=== PATIENT | female | born 1970 ===

== ENCOUNTER 2017-06-09 08:31 | Emergency (ER) | payer MEDICAID ==
[2017-06-09 08:31] VITALS: BMI 32.0
[2017-06-09] MEDS ORDERED: Benzocaine/Menthol (Cepacol) Lozenge MT STA (08:49)
--- NOTE | 2017-06-09 08:50 | ED PDOC ---
Arrival/HPI - General Chief Complaint: ENT Problem Time Seen by Provider: 06/09/17 08:43 Historian: Patient - History of Present Illness Narrative History of Present Illness (Text): 06/09/17 08:44 A 46 year old female whose past medical history includes hypertension, , and hysterectomy, presents to the emergency department with 1 week duration throat, head, and ear pain. The patient states that she has a fever yesterday and that she has difficulty swallowing solids. She is able to drink plenty of fluids. She notes a voice change, rhinorrhea, and cough. She denies chills, abdominal pain, chest pain, shortness of breath, dyspnea on exertion, nausea, vomiting, diarrhea, dizziness, or any other complaints. Time/Duration: 1 week Symptom Onset: Gradual Symptom Course: Unchanged Activities at Onset: Rest, Light Context: Home Past Medical History - Provider Review Nursing Documentation Reviewed: Yes - Infectious Disease Hx of Infectious Diseases: None - Tetanus Immunization Tetanus Immunization: Unknown - Cardiac Hx Cardiac Disorders: Yes Hx Hypertension: Yes - Pulmonary Hx Pneumonia: Yes - Neurological Hx Neurological Disorder: No - HEENT Hx HEENT Disorder: No - Renal Hx Renal Disorder: No - Endocrine/Metabolic Hx Endocrine Disorders: No - Hematological/Oncological Hx Blood Disorders: No - Integumentary Hx Dermatological Disorder: No - Musculoskeletal/Rheumatological Hx Musculoskeletal Disorders: No Hx Falls: No - Gastrointestinal Hx Gastrointestinal Disorders: No - Genitourinary/Gynecological Hx Genitourinary Disorders: No - Psychiatric Hx Psychophysiologic Disorder: No Hx Depression: No Hx Substance Use: No - Surgical History Hx Section: Yes (x2) Hx Cholecystectomy: Yes Hx Hysterectomy: Yes Other/Comment: liposuction - Anesthesia Hx Anesthesia: Yes Hx Anesthesia Reactions: No Hx Malignant Hyperthermia: No - Suicidal Assessment Feels Threatened In Home Enviroment: No Family/Social History - Physician Review Nursing Documentation Reviewed: Yes Family/Social History: No Known Family HX Smoking Status: Never Smoked Hx Alcohol Use: No Hx Substance Use: No Hx Substance Use Treatment: No Allergies/Home Meds Allergies/Adverse Reactions: Allergies No Known Allergies Allergy (Verified 06/09/17 08:38) Review of Systems - Physician Review All systems were reviewed & negative as marked: Yes - Review of Systems Constitutional: Fevers. absent: Night Sweats ENT: Voice Changes, Sore Throat, Rhinorrhea, Other (Ear pain) Respiratory: Cough. absent: SOB Cardiovascular: absent: Chest Pain Gastrointestinal: absent: Abdominal Pain, Nausea, Vomiting Neurological: Headache. absent: Dizziness Physical Exam Vital Signs Reviewed: Yes Vital Signs Temp Pulse Resp BP Pulse Ox 06/09/17 08:31 98 F 78 18 136/90 99 Temperature: Afebrile Blood Pressure: Normal Pulse: Regular Respiratory Rate: Normal Appearance: Positive for: Well-Appearing, Non-Toxic, Comfortable Pain Distress: None Mental Status: Positive for: Alert and Oriented X 3 - Systems Exam Head: Present: Atraumatic, Normocephalic Pupils: Present: PERRL Extroacular Muscles: Present: EOMI Conjunctiva: Present: Normal Ears: Present: Normal, NORMAL TM, Normal Canal. No: Erythema, TM Bulging Mouth: Present: Moist Mucous Membranes. No: Drooling Pharnyx: Present: ERYTHEMA, TONSILS ENLARGED. No: EXUDATE, Uvular Deviation, Muffled/Hoarse Voice Neck: Present: Normal Range of Motion. No: Meningeal Signs Respiratory/Chest: Present: Clear to Auscultation, Good Air Exchange. No: Respiratory Distress, Accessory Muscle Use Cardiovascular: Present: Regular Rate and Rhythm, Normal S1, S2. No: Murmurs Abdomen: Present: Normal Bowel Sounds. No: Tenderness, Distention, Peritoneal Signs Back: Present: Normal Inspection Upper Extremity: Present: Normal Inspection. No: Cyanosis, Edema Lower Extremity: Present: Normal Inspection. No: Edema Neurological: Present: GCS=15, CN II-XII Intact, Speech Normal Skin: Present: Warm, Dry, Normal Color. No: Rashes Psychiatric: Present: Alert, Oriented x 3, Normal Insight, Normal Concentration Medical Decision Making ED Course and Treatment: 06/09/17 08:54 Impression: A 46 year old female with 1 week duration ear, throat, and head pain with associates rhinorrhea, cough, voice change, and fever. Plan: -- Cepacol Sore Throat -- Motrin -- Penicillin -- Reassess and disposition Prior Visits: Notes and results from previous visits were reviewed. On 09/24/2016 patient came in complaining of epigastric pain. Patient was discharged home. Progress Notes: Patient improved during visit. She states that every time she gets antibiotics she gets yeast infection. Her PMD gives her Diflucan just in case but PMD is on vacation. Rx Diflucan given in addition to PCN. - Medication Orders Current Medication Orders: Discontinued Medications Benzocaine/Menthol (Cepacol Sore Throat) 1 nicola MT STAT STA Stop: 06/09/17 08:50 Last Admin: 06/09/17 09:19 Dose: 1 nicola Ibuprofen (Motrin Tab) 600 mg PO STAT STA Stop: 06/09/17 08:52 Last Admin: 06/09/17 09:19 Dose: 600 mg Penicillin V Potassium (Penicillin Vk Tab) 500 mg PO STAT STA PRN Reason: Protocol Stop: 06/09/17 08:50 Last Admin: 06/09/17 09:19 Dose: 500 mg - Scribe Statement The provider has reviewed the documentation as recorded by the Lin Swanson Provider Scribe Attestation: All medical record entries made by the Scribe were at my direction and personally dictated by me. I have reviewed the chart and agree that the record accurately reflects my personal performance of the history, physical exam, medical decision making, and the department course for this patient. I have also personally directed, reviewed, and agree with the discharge instructions and disposition Disposition/Present on Arrival - Present on Arrival Any Indicators Present on Arrival: No History of DVT/PE: No History of Uncontrolled Diabetes: No Urinary Catheter: No History of Decub. Ulcer: No History Surgical Site Infection Following: None - Disposition Have Diagnosis and Disposition been Completed?: Yes Diagnosis: Pharyngitis Disposition: HOME/ ROUTINE Disposition Time: 09:20 Patient Plan: Discharge Condition: GOOD Discharge Instructions (ExitCare): Pharyngitis (ED) Print Language: SWEDISH Additional Instructions: Ms Dumont, thank you for letting us take care of you today. Your provider was Dr. Hollingsworth. You were treated for Pharyngitis. The emergency medical care you received today was directed at your acute symptoms. If you were prescribed any medication, please fill it and take as directed. It may take several days for your symptoms to resolve. Return to the Emergency Department if your symptoms worsen, do not improve, or if you have any other problems. Please contact your doctor or call one of the physicians/clinics you have been referred to that are listed on the Patient Visit Information form that is included in your discharge packet. Bring any paperwork you were given at discharge with you along with any medications you are taking to your follow up visit. Our treatment cannot replace ongoing medical care by a primary care provider (PCP) outside of the emergency department. Thank you for allowing the [facility] team to be part of your care today. If you had an X-Ray or CT scan: A Radiologist will review the ED reading if any change in treatment is needed we will contact you. If you had a blood, urine, or wound culture: It will take several days for the results, if any change in treatment is needed we will contact you. If you had an STI test: It will take 48 hours for the results. Please call after 1 week if you have not heard back. Prescriptions: Benzocaine/Menthol [Cepacol Sore Throat Lozenge] 1 each MM Q2 PRN #60 lozenge PRN Reason: Pain, Mild (1-3) Fluconazole [Diflucan] 150 mg PO ONCE #1 tab Ibuprofen [Motrin] 600 mg PO Q6 PRN #30 tab PRN Reason: Pain, Moderate (4-7) Penicillin VK [Penicillin VK Tab] 500 mg PO BID #20 tab Referrals: [facility], [Non-Staff] - Follow up with primary Forms: [employer] ([place]), WORK NOTE
[2017-06-09 09:01] VITALS: BP 136/90; PULSE 78; RESP 18; TEMP 98; O2SAT 99
== END 2017-06-09 09:31 | disposition home or self-care (01) ==
LOC: ED 08:31
DX: J02.9 Acute pharyngitis, unspecified (principal)

== ENCOUNTER 2018-02-11 04:30 | Inpatient (IN) | payer MEDICAID ==
[2018-02-11] MEDS ORDERED: Sodium Chloride 0.9% 1,000 ML IV STA ×2 (04:50→06:16)
[2018-02-11 05:26] LABS: BASO # 0.01 K/mm3 (0.0-2.0); GRAN # 23.39 (1.4-6.5); GRAN % 95.5 % (50.0-68.0); HEMOGLOBIN 13.9 g/dL (12.0-16.0); LYMPH # 0.6 (1.2-3.4); LYMPH % 2.3 % (22.0-35.0); MEAN CELL VOLUME 79.3 fl (80.0-105.0); MEAN CORPUSCULAR HGB CONC 35.3 g/dl (31.0-37.0); MEAN PLATELET VOLUME 11.3 fl (7.0-11.0); MONO # 0.6 (0.1-0.6); MONO % 2.2 % (1.0-6.0); PLATELET COUNT 205 10^3/uL (120.0-450.0); RBC 4.97 10^6/uL (3.5-6.1); RED CELL DISTRIBUTION WIDTH 14.7 % (11.5-14.5); WHITE BLOOD COUNT 24.5 10^3/ul (4.5-11.0)
[2018-02-11 05:30] LABS: ALB/GLOB RATIO 1.1 (1.1-1.8); ALT/SGPT 53 U/L (7-56); AST/SGOT 31 U/L (14-36); BLOOD UREA NITROGEN 6 mg/dL (7-21); CALCIUM 8.9 mg/dL (8.4-10.5); GFR AFRICAN-AMERICAN > 60; GFR NON-AFRICAN AMERICAN > 60
[2018-02-11 05:32] LABS: INR 1.26 (0.93-1.08); PARTIAL THROMBOPLASTIN TIME 26.6 Seconds (25.1-36.5); PROTHROMBIN TIME 14.4 SECONDS (9.4-12.5)
[2018-02-11 05:46] LABS: VENOUS BLOOD GAS BASE EXCESS 2.2 mmol/L (0.0-2.0); VENOUS BLOOD GAS PO2 173 mm/Hg (30-55); VENOUS BLOOD PH 7.49 (7.32-7.43)
[2018-02-11 05:47] LABS: TROPONIN I < 0.01 ng/mL
[2018-02-11] MEDS ORDERED: Piperacill/Tazo 4.5gm in NS 4.5 GM/100 ML BAG IVPB STA (06:16)
[2018-02-11 06:21] LABS: BAND 5 % (0-2); LYMPHOCYTE 2 % (22.0-35.0); MONOCYTE 3 % (1.0-6.0); NEUTROPHIL 90 % (50.0-70.0); PLATELET ESTIMATE NORMAL (NORMAL)
--- NOTE | 2018-02-11 06:24 | ED PDOC ---
Arrival/HPI - General Chief Complaint: Flu-like Symptoms Time Seen by Provider: 02/11/18 04:45 Historian: Patient, Spouse - History of Present Illness Narrative History of Present Illness (Text): 47yoF, HTN, with sore throat, cough, headache, generalized bodyaches, chest discomfort, abdomen pain, and otherwise no sob/abdomen pain/numbness/tingling/ loss of limb function. 02/11/18 06:18 02/11/18 07:06 Past Medical History - Provider Review Nursing Documentation Reviewed: Yes - Infectious Disease Hx of Infectious Diseases: None - Tetanus Immunization Tetanus Immunization: Unknown - Cardiac Hx Cardiac Disorders: Yes Hx Hypertension: Yes - Pulmonary Hx Pneumonia: Yes - Neurological Hx Neurological Disorder: No - HEENT Hx HEENT Disorder: No - Renal Hx Renal Disorder: No - Endocrine/Metabolic Hx Endocrine Disorders: No - Hematological/Oncological Hx Blood Disorders: No - Integumentary Hx Dermatological Disorder: No - Musculoskeletal/Rheumatological Hx Musculoskeletal Disorders: No Hx Falls: No - Gastrointestinal Hx Gastrointestinal Disorders: No - Genitourinary/Gynecological Hx Genitourinary Disorders: No - Psychiatric Hx Psychophysiologic Disorder: No Hx Depression: No Hx Substance Use: No - Surgical History Hx Section: Yes Hx Cholecystectomy: Yes Hx Hysterectomy: Yes - Anesthesia Hx Anesthesia: Yes Hx Anesthesia Reactions: No Hx Malignant Hyperthermia: No - Suicidal Assessment Feels Threatened In Home Enviroment: No Family/Social History - Physician Review Nursing Documentation Reviewed: Yes Family/Social History: No Known Family HX Smoking Status: Never Smoked Hx Alcohol Use: No Hx Substance Use: No Hx Substance Use Treatment: No Allergies/Home Meds Allergies/Adverse Reactions: Allergies No Known Allergies Allergy (Verified 02/11/18 04:42) Home Medications: Home Meds Medication Instructions Recorded Confirmed Losartan [Cozaar] 100 mg PO DAILY 02/11/18 02/11/18 Omeprazole Magnesium [Prilosec Otc] 20 mg PO DAILY 02/11/18 02/11/18 Unknown Medication Form Depression 02/11/18 Review of Systems - Review of Systems Constitutional: Fevers Eyes: Normal ENT: Normal Physical Exam Vital Signs Temp Pulse Resp BP Pulse Ox 02/11/18 07:36 98.4 F 87 16 126/76 98 02/11/18 04:44 100.1 F H 108 H 20 144/99 H 100 Medical Decision Making ED Course and Treatment: 47yoF, HTN, with sore throat, cough, headache, generalized bodyaches, chest discomfort, abdomen pain, and otherwise no sob/abdomen pain/numbness/tingling/ loss of limb function. low grade temp 100.1 HR 108 wbc 24 hb 13 trop less than 0.01 influenza neg lactic acid 2.1 code sepsis called strep positive ua neg IV Zosyn IV fluid hydration tylenol aspirin ct head no acute ct neck positive cervical adenopathy, but no mass or fluid collection. ct a/p fatty liver, colon is mildly thick walled from ascending to distal colon , possible mild colitis. IV flagyl d/w Dr. Mancia who will admit for sepsis related to pharyngitis and colitis. sepsis bundle Reassessment Condition: Re-examined, Improved - Lab Interpretations Lab Results: 02/11/18 05:05 02/11/18 05:05 Lab Results 02/11/18 08:00: pO2 189 H, VBG pH 7.37, VBG pCO2 41.0, VBG HCO3 23.7, VBG Total CO2 25.0, VBG O2 Sat (Calc) 100.7 H, VBG Base Excess -1.5 L, VBG Potassium 3.7, Sodium 137.0, Chloride 107.0, Glucose 126 H, Lactate 1.6, FiO2 21.0, Venous Blood Potassium 3.7 02/11/18 06:54: Grp A Beta Strep Ag Positive H 02/11/18 06:54: Urine Color Yellow, Urine Appearance Clear, Urine pH 6.0, Ur Specific [place] 1.010, Urine Protein Trace H, Urine Glucose (UA) Negative, Urine Ketones Negative, Urine Blood Negative, Urine Nitrate Negative, Urine Bilirubin Negative, Urine Urobilinogen 1.0 H, Ur Leukocyte Esterase Negative, Urine RBC 0 - 2, Urine WBC 0 - 2, Ur Epithelial Cells 4 - 5, Urine Bacteria Few 02/11/18 05:05: pO2 173 H, VBG pH 7.49 H, VBG pCO2 33.0 L, VBG HCO3 25.1, VBG Total CO2 26.1, VBG O2 Sat (Calc) 100.5 H, VBG Base Excess 2.2 H, VBG Potassium 3.6, Sodium 136.0, Chloride 105.0, Glucose 176 H, Lactate 2.1, FiO2 21.0, Venous Blood Potassium 3.6 02/11/18 05:05: Influenza Typ A,B (EIA) Negative for flu a/b 02/11/18 05:05: Sodium 142, Chloride 106, Potassium 3.6, Carbon Dioxide 23, Anion Gap 17, BUN 6 L, Creatinine 0.6 L, Est GFR ( Amer) > 60, Est GFR ( Non-Af Amer) > 60, Random Glucose 167 H, Calcium 8.9, Magnesium 1.9, Total Bilirubin 0.6, AST 31, ALT 53, Alkaline Phosphatase 81, Lactate Dehydrogenase 433, Total Creatine Kinase 59, Troponin I < 0.01, Total Protein 7.6, Albumin 4.0 , Globulin 3.6, Albumin/Globulin Ratio 1.1 02/11/18 05:05: PT 14.4 H, INR 1.26 H, APTT 26.6 02/11/18 05:05: WBC 24.5 H D, RBC 4.97, Hgb 13.9, Hct 39.4, MCV 79.3 L, MCH 28.0 , MCHC 35.3, RDW 14.7 H, Plt Count 205, MPV 11.3 H, Gran % 95.5 H, Lymph % (Auto ) 2.3 L, Boyle % (Auto) 2.2, Eos % (Auto) 0.0 L, Baso % (Auto) 0.0, Gran # 23.39 H, Lymph # (Auto) 0.6 L, Boyle # (Auto) 0.6, Eos # (Auto) 0.0, Baso # (Auto) 0.01 , Neutrophils % (Manual) 90 H, Band Neutrophils % 5 H, Lymphocytes % (Manual) 2 L, Monocytes % (Manual) 3, Platelet Evaluation Normal I have reviewed the lab results: Yes - RAD Interpretation Radiology Orders: 02/11/18 04:49 CHEST PORTABLE [RAD] Stat 02/11/18 06:28 HEAD W/O CONTRAST [CT] Stat 02/11/18 06:30 NECK SOFT TISSUE W/CONTRAST [CT] Stat 02/11/18 06:31 ABD & PELVIS IV CONTRAST ONLY [CT] Stat Insecticide Sprayer: ED Physician (cxr mild vascular markings), Radiologist (see mdm) - EKG Interpretation Interpreted by ED Physician: Yes (sinus tachycardia) Type: 12 lead EKG - Medication Orders Current Medication Orders: Metronidazole (Flagyl) 500 mg in 100 mls @ 100 mls/hr IVPB STAT STA PRN Reason: Protocol Stop: 02/11/18 10:07 Discontinued Medications Acetaminophen (Tylenol 325mg Tab) 975 mg PO STAT STA Stop: 02/11/18 04:51 Last Admin: 02/11/18 05:14 Dose: 975 mg Aspirin (Aspirin) 325 mg PO STAT STA Stop: 02/11/18 04:49 Last Admin: 02/11/18 05:14 Dose: 325 mg Sodium Chloride (Sodium Chloride 0.9%) 1,000 mls @ 999 mls/hr IV .Q1H1M STA Stop: 02/11/18 05:50 Last Admin: 02/11/18 05:12 Dose: 999 mls/hr eMAR Start Stop Document 02/11/18 05:12 CNR (Rec: 02/11/18 05:14 CNR [id number]) Intravenous Solution Start Date 02/11/18 Start Time 05:14 Sodium Chloride (Sodium Chloride 0.9%) 1,000 mls @ 999 mls/hr IV .Q1H1M STA Stop: 02/11/18 07:16 Last Admin: 02/11/18 06:45 Dose: 999 mls/hr eMAR Start Stop Document 02/11/18 06:45 CNR (Rec: 02/11/18 06:45 CNR [id number]) Intravenous Solution Start Date 02/11/18 Start Time 06:45 Piperacillin Sod/Tazobactam Sod (Zosyn 4.5 Gm In Ns 100ml) 4.5 gm in 100 mls @ 200 mls/hr IVPB STAT STA PRN Reason: Protocol Stop: 02/11/18 06:45 Last Admin: 02/11/18 06:44 Dose: 200 mls/hr eMAR Start Stop Document 02/11/18 06:44 CNR (Rec: 02/11/18 06:45 CNR [id number]) Intravenous Solution Start Date 02/11/18 Start Time 06:45 End Date 02/11/18 End time 07:15 Total Infusion Time 30 Disposition/Present on Arrival - Present on Arrival Any Indicators Present on Arrival: No History of DVT/PE: No History of Uncontrolled Diabetes: No Urinary Catheter: No History of Decub. Ulcer: No History Surgical Site Infection Following: None - Disposition Have Diagnosis and Disposition been Completed?: Yes Diagnosis: Pharyngitis, Sepsis, Colitis Disposition: HOSPITALIZED Disposition Time: 09:21 Patient Plan: Telemetry Condition: IMPROVED Discharge Instructions (ExitCare): Sepsis (ED) Referrals: Jesica Cox MD [Primary Care Provider] - Follow up with primary Forms: [employer] ([place]ian)
[2018-02-11] MEDS ORDERED: Iohexol 350 MG/100 ML VIAL ONE (06:46)
[2018-02-11 07:18] LABS: URINE BILIRUBIN NEGATIVE (NEGATIVE); URINE BLOOD NEGATIVE (NEGATIVE); URINE GLUCOSE (UA) NEGATIVE (NEGATIVE); URINE LEUKOCYTE ESTERASE NEGATIVE Leu/uL (NEGATIVE); URINE PROTEIN TRACE mg/dL (<30 mg/dL)
[2018-02-11 07:19] LABS: URINE APPEARANCE CLEAR (CLEAR); URINE COLOR YELLOW (YELLOW)
--- NOTE | 2018-02-11 07:35 | CT ---
EXAM: CT Head Without Intravenous Contrast CLINICAL HISTORY: 47 years old, female; Signs and symptoms; Fever; Additional info: 47yof, fever, headache, wbc 24 TECHNIQUE: Axial computed tomography images of the head/brain without intravenous contrast. All CT scans at this facility use one or more dose reduction techniques, viz.: automated exposure control; ma/kV adjustment per patient size (including targeted exams where dose is matched to indication; i.e. head); or iterative reconstruction technique. Coronal and sagittal reformatted images were created and reviewed. COMPARISON: No relevant prior studies available. FINDINGS: Brain: Unremarkable. No hemorrhage. No significant white matter disease. No edema. Ventricles: Unremarkable. No ventriculomegaly. Bones/joints: Unremarkable. No acute fracture. Soft tissues: Unremarkable. Sinuses: Unremarkable as visualized. No acute sinusitis. Mastoid air cells: Unremarkable as visualized. No mastoid effusion. IMPRESSION: No evidence of an acute intracranial abnormality.
[2018-02-11 07:42] LABS: URINE BACTERIA FEW (NEG); URINE RBC 0 - 2 /hpf (0-2); URINE WBC 0 - 2 /hpf (0-6)
--- NOTE | 2018-02-11 08:07 | CT ---
EXAM: CT Neck With Intravenous Contrast CLINICAL HISTORY: 47 years old, female; Signs and symptoms; Other: Fever; Additional info: 47yof, with fever, sore throat, wbc 24. TECHNIQUE: Axial computed tomography images of the neck with intravenous contrast. All CT scans at this facility use one or more dose reduction techniques, viz.: automated exposure control; ma/kV adjustment per patient size (including targeted exams where dose is matched to indication; i.e. head); or iterative reconstruction technique. Coronal and sagittal reformatted images were created and reviewed. CONTRAST: 100 mL of omnipaque 350 administered intravenously. COMPARISON: No relevant prior studies available. FINDINGS: Oropharynx: Unremarkable. No significant tonsillar enlargement. No peritonsillar abscess. Hypopharynx: Unremarkable. Larynx: Unremarkable. Normal epiglottis. Trachea: Unremarkable. Retropharyngeal space: Unremarkable. Submandibular/parotid glands: Unremarkable. Glands are normal in size. Thyroid: Unremarkable. No enlarged or calcified nodules. Bones/joints: No acute fracture. Soft tissues: Unremarkable. Vasculature: No acute findings. Lymph nodes: Multiple mildly prominent cervical lymph nodes bilaterally. Largest farm loan representative lymph node in the left retromandibular area measures 2 x 0.8 x 1.9 cm. Lung apices: Unremarkable as visualized. IMPRESSION: No acute findings. No mass or focal fluid collection. Mild nonspecific cervical adenopathy probably reactive.
[2018-02-11 08:21] LABS: VENOUS BLOOD GAS BASE EXCESS -1.5 mmol/L (0.0-2.0); VENOUS BLOOD GAS PO2 189 mm/Hg (30-55); VENOUS BLOOD PH 7.37 (7.32-7.43)
--- NOTE | 2018-02-11 08:29 | CT ---
EXAM: CT Abdomen and Pelvis With Intravenous Contrast CLINICAL HISTORY: 47 years old, female; Signs and symptoms; Other: Fever; Additional info: 47yof, with fever, abdomen pain/tenderness, wbc 24 TECHNIQUE: Axial computed tomography images of the abdomen and pelvis with intravenous contrast. All CT scans at this facility use one or more dose reduction techniques, viz.: automated exposure control; ma/kV adjustment per patient size (including targeted exams where dose is matched to indication; i.e. head); or iterative reconstruction technique. Coronal and sagittal reformatted images were created and reviewed. CONTRAST: 100 mL of omnipaque 350 administered intravenously. COMPARISON: CT - ABD PELVIS IV CONTRAST ONLY 2016-09-24 18:54 FINDINGS: Lung bases: There is minimal bibasilar atelectasis. ABDOMEN: Liver: There is a diffuse decrease in hepatic parenchymal density, consistent with fatty infiltration. Gallbladder and bile ducts: There has been a cholecystectomy. No ductal dilation. Pancreas: Unremarkable. No mass. No ductal dilation. Spleen: Unremarkable. No splenomegaly. Adrenals: Unremarkable. No mass. Kidneys and ureters: There are too small to characterize low density lesions in both kidneys measuring 2-4 mm. No hydronephrosis. Stomach and bowel: The colon appears mildly thick walled from the ascending to the distal descending. Possible mild acute colitis. No obstruction. PELVIS: Appendix: A normal appendix is identified. Bladder: Unremarkable. No mass. Reproductive: Unremarkable as visualized. ABDOMEN and PELVIS: Postsurgical changes suggests prior hernia repair. Intraperitoneal space: Unremarkable. No free air. No significant fluid collection. Bones/joints: No acute fracture. No dislocation. Soft tissues: Unremarkable. Vasculature: Unremarkable. No abdominal aortic aneurysm. Lymph nodes: Unremarkable. No enlarged lymph nodes. IMPRESSION: Possible mild acute colitis. Clinical correlation recommended. Cholecystectomy. Fatty liver. Too small to characterize bilateral renal lesions, probably cysts. No followup necessary.
[2018-02-11] MEDS ORDERED: metroNIDAZOLE IV 500 mg/100 ml 500 MG/100 ML BAG IVPB STA (09:08)
--- NOTE | 2018-02-11 09:17 | RAD ---
HISTORY: 47yoF with chest pain COMPARISON: 09/24/2016 FINDINGS: LUNGS: No active pulmonary disease. PLEURA: No significant pleural effusion identified, no pneumothorax apparent. CARDIOVASCULAR: Normal. OSSEOUS STRUCTURES: No significant abnormalities. VISUALIZED UPPER ABDOMEN: Normal. OTHER FINDINGS: None. IMPRESSION: No active disease.
--- NOTE | 2018-02-11 10:28 | CARD ---
APPROVED REPORT EKG Measurement Heart [id number] <Conclusion> Sinus tachycardia Nonspecific ST and T wave abnormality Abnormal ECG
[2018-02-11] MEDS: Piperacillin/Tazobact 3.375 gm 100 ML IVPB SCH ×2 (13:03→17:44)
[2018-02-11] MEDS: Sodium Chloride 0.9% 1,000 ML IV SCH (13:05)
[2018-02-11] MEDS: Benzocaine/Menthol (Cepacol) Lozenge MT SCH ×3 (13:05→21:42)
--- NOTE | 2018-02-11 13:26 | CP.PCM.HP ---
<Eros Mckeon - Last Filed: 02/11/18 12:19> History of Present Illness - History of Present Illness History of Present Illness: PGY1 Medicine H+P for Dr. Mancia Patient is a 47 year old man with a past medical history of HTN presenting to the emergency room with a chief complaint of whole body aches, subjective fevers , chills, sore throat, cough and abdominal pain. The symptoms started 2-3 days ago upon waking up. 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 Her cough is is non-productive. The abdominal pain is a vague and diffuse pain. The pain is worst in the epigastric region and does not radiate. She is currently nauseous and vomited 3 times yesterday. The emesis was described as non-bloody and yellowish. Her sore throat has made is painful to sallow but has not cause her any difficulty with breathing. She is hungry and asking for food. She had one episode of a loose bowel movement, denies bloody or black stools. She has only taken Tylenol for her fever and pain. Patient complains of overall fatigue and weakness. Denies chest pain, shortness of breath, vision changes, rashes, numbness or tingling. PMH: HTN PSH: Hysterectomy, x2, Cholecystectomy, hernia repair Family Hx: Cancer (mother) Social Hx: Denies tobacco, alcohol, illicit drug use, Allergies: NKDA PMD: Dr. Cox Present on Admission - Present on Admission Any Indicators Present on Admission: No Review of Systems - Review of Systems All systems: reviewed and no additional remarkable complaints except (as per HPI ) - Constitutional Constitutional: As Per HPI - EENT Eyes: As Per HPI Ears: As Per HPI Nose/Mouth/Throat: As Per HPI - Cardiovascular Cardiovascular: As Per HPI - Respiratory Respiratory: As Per HPI - Gastrointestinal Gastrointestinal: As Per HPI - Genitourinary Genitourinary: As Per HPI - Musculoskeletal Musculoskeletal: As Per HPI - Integumentary Integumentary: As Per HPI - Neurological Neurological: As Per HPI - Psychiatric Psychiatric: As Per HPI - Endocrine Endocrine: As Per HPI - Hematologic/Lymphatic Hematologic: As Per HPI Past Patient History - Infectious Disease Hx of Infectious Diseases: None - Tetanus Immunizations Tetanus Immunization: Unknown - Past Social History Smoking Status: Never Smoked - CARDIAC Hx Cardiac Disorders: Yes Hx Hypertension: Yes - PULMONARY Hx Pneumonia: Yes - NEUROLOGICAL Hx Neurological Disorder: No - HEENT Hx HEENT Problems: No - RENAL Hx Chronic Kidney Disease: No - ENDOCRINE/METABOLIC Hx Endocrine Disorders: No - HEMATOLOGICAL/ONCOLOGICAL Hx Blood Disorders: No - INTEGUMENTARY Hx Dermatological Problems: No - MUSCULOSKELETAL/RHEUMATOLOGICAL Hx Musculoskeletal Disorders: No Hx Falls: No - GASTROINTESTINAL Hx Gastrointestinal Disorders: No - GENITOURINARY/GYNECOLOGICAL Hx Genitourinary Disorders: No - PSYCHIATRIC Hx Psychophysiologic Disorder: No Hx Depression: No Hx Substance Use: No - SURGICAL HISTORY Hx Section: Yes Hx Cholecystectomy: Yes Hx Hysterectomy: Yes - ANESTHESIA Hx Anesthesia: Yes Hx Anesthesia Reactions: No Hx Malignant Hyperthermia: No Meds Allergies/Adverse Reactions: Allergies Allergy/AdvReac Type Severity Reaction Status Date / Time No Known Allergies Allergy Verified 02/11/18 12:36 Physical Exam - Constitutional Appears: Non-toxic, No Acute Distress - Head Exam Head Exam: ATRAUMATIC, NORMOCEPHALIC - Eye Exam Eye Exam: EOMI, Normal appearance. absent: Scleral icterus Pupil Exam: PERRL - ENT Exam ENT Exam: Mucous Membranes Moist. absent: Normal Oropharynx (Erythema - exudates on tosils b/l) - Neck Exam Neck exam: Positive for: Lymphadenopathy, Tenderness (preauricular/ submandibular lymph nodes). Negative for: Meningismus, Thyromegaly - Respiratory Exam Respiratory Exam: Clear to Auscultation Bilateral, NORMAL BREATHING PATTERN. absent: Accessory Muscle Use, Rales, Rhonchi, Wheezes, Respiratory Distress - Cardiovascular Exam Cardiovascular Exam: REGULAR RHYTHM, +S1, +S2. absent: JVD, Systolic Murmur - GI/Abdominal Exam GI & Abdominal Exam: Normal Bowel Sounds, Soft, Tenderness (diffuse (worst in epigastric region)) - Extremities Exam Extremities exam: Positive for: normal inspection, pedal pulses present. Negative for: calf tenderness, pedal edema, tenderness - Back Exam Back exam: CVA tenderness (L) (mild), CVA tenderness (R) (mild). absent: rash noted - Neurological Exam Neurological exam: Alert, CN II-XII Intact, Oriented x3 - Psychiatric Exam Psychiatric exam: Normal Affect, Normal Mood - Skin Skin Exam: Dry, Warm Results - Vital Signs Recent Vital Signs: Last Vital Signs Temp 98.4 F 02/11/18 07:36 Pulse 71 02/11/18 09:26 Resp 16 02/11/18 09:26 BP 110/72 02/11/18 09:26 Pulse Ox 17 L 02/11/18 11:00 - Labs Result Diagrams: 02/11/18 05:05 02/11/18 05:05 Assessment & Plan - Assessment and Plan (Free Text) Assessment: Patient is a 47 year old female with a past medical history of HTN presenting to the hospital with flu-like symptoms and was found to have sepsis, with strep throat and possible colitis. Plan: Sepsis - Bandemia Code sepsis called Infectious Disease consulted, Dr. Nicole - help appreciated WBC 24.5 upon admission - Neutrophils 90% - Bands 5 Flu - negative Strep - positive f/u HIV f/u CMV f/u [place] f/u blood culture f/u urine culture Started on Zosyn 3.375gm IVPB q6h ED Course: Aspirin 325mg, Tylenol 975mg, 2L bolus of NS, Zosyn 4.5gm IVPB and Flagyl 500mg IVPB Abdominal Pain GI consulted, Dr. Monson - help appreciated Per patient, - hx of 3 EGDs - possibly treated for H. Pylori in the past - hx of 2 Colonoscopies in past - both normal - Patient was seeing a Dr. Curry? in [place] - will attempt to find number and call for records. Abdominal/Pelvis CT - had two reads - VRAD: Possible mild acute colitis. Fatty Liver. Too small to characterize bilateral renal lesions, probably cysts. No follow up necessary. - Dr. Wilkerson: Unremarkable non contrast enhanced CT of the abdomen and pelvis Protonix 40mg PO daily Strep Throat Positive group A strep Cepacol Zosyn 3.375gm IVPB q6h Prophylactic Care Protonix 40mg PO daily Heparin 5,000units SC q8h Case Discussed with Dr. Blanche Mckeon PGY1 <Vanessa Mancia - Last Filed: 02/11/18 15:50> Results - Vital Signs Recent Vital Signs: Last Vital Signs Temp 98.7 F 02/11/18 15:13 Pulse 79 02/11/18 15:13 Resp 20 02/11/18 15:13 BP 142/85 02/11/18 15:13 Pulse Ox 100 02/11/18 15:13 - Labs Result Diagrams: 02/11/18 05:05 02/11/18 05:05 Labs: Laboratory Results - last 24 hr 02/11/18 13:32 Influenza Typ A,B (EIA) Negative for flu a/b Attending/Attestation - Attestation I have personally seen and examined this patient.: Yes I have fully participated in the care of the patient.: Yes I have reviewed all pertinent clinical information: Yes Notes (Text): 02/11/18 15:42 attending note; patient seen and examined with resident. Patient is a47 year old female with a past medical history of hypertension presenting to the emergency room with a chief complaint of whole body aches, subjective fevers, chills, sore throat, cough and abdominal pain. found to have strep pharyngitis/tonsillitis. Tonsills shows mild exudative lesions. patient also had nonspecific abdominal discomfort. CT abdomen and pelvis showed diffuse colitis. Stool studies ordered. Started on IV Zosyn. HIV, EBV, CMV ordered. leukocytosis/fever; sepsis protocol followed. Monitor WBC count. CT head is negative. CT neck showed no retropharyngeal abscess. colitis; GI evaluation requested. Patient had EGD in the past over 3 years ago. Treated for H. pylori. Patient also had colonoscopy previously over 3 years ago which was normal as per patient. Monitor closely. Upon discharge The patient will follow-up with PMD Dr. Cox.
--- NOTE | 2018-02-11 13:38 | PCM.SEPTIC ---
Sepsis Progress Note - Reassessment Type Date of Evaluation: 02/11/18 Time of Evaluation: 12:45 Reassessment Type: Non-invasive reassessment - Non Invasive Reassessment Were the most recent vital sign reviewed: Yes Vital Sign (Latest): Temp Pulse Resp BP Pulse Ox 98.4 F 71 16 110/72 17 L 02/11/18 07:36 02/11/18 09:26 02/11/18 09:26 02/11/18 09:26 02/11/18 11:00 Cardiovascular: Yes: Regular Rate, Rhythm, Chest Non Tender Respiratory: Yes: Normal Breath Sounds. No: Accessory Muscle Use, Rales, Rhonchi, Wheezing, Respiratory Distress Capillary Refill: Normal (Less than 2 sec) Pulses: Normal Radial, Normal Dorsalis Pedis, Normal Posterior Tibialis Skin: Warm, Dry
--- NOTE | 2018-02-11 14:02 | CP.PCM.CON ---
History of Present Illness - History of Present Illness History of Present Illness: 47 year old female with PMH of obesity with BMI 33, HTN, history of pneumonia, S /P cholecystectomy, S/P hysterectomy, came in [place] [facility] [place] complaining of fever, chills associated with sore throat, odynophagia, generalized body aches for the past 2-3 days. She was also complaining of vague abdominal discomfort, nausea and vomiting but without diarrhea. She works in a day care center. She denies headache or dizziness, no rhinorrhea, occasional dry cough, no chest pain, no SOB, no dysuria or hematuria. CT A/P was done which is showing mild acute colitis, and CT neck is showing reactive lymphadenopathy. Infectious diseases consult is requested to further evaluate and manage. Review of Systems - Review of Systems All systems: reviewed and no additional remarkable complaints except (as per HPI ) Past Patient History - Infectious Disease Hx of Infectious Diseases: None - Tetanus Immunizations Tetanus Immunization: Unknown - Past Social History Smoking Status: Never Smoked - CARDIAC Hx Cardiac Disorders: Yes Hx Hypertension: Yes - PULMONARY Hx Pneumonia: Yes - NEUROLOGICAL Hx Neurological Disorder: No - HEENT Hx HEENT Problems: No - RENAL Hx Chronic Kidney Disease: No - ENDOCRINE/METABOLIC Hx Endocrine Disorders: No - HEMATOLOGICAL/ONCOLOGICAL Hx Blood Disorders: No - INTEGUMENTARY Hx Dermatological Problems: No - MUSCULOSKELETAL/RHEUMATOLOGICAL Hx Musculoskeletal Disorders: No Hx Falls: No - GASTROINTESTINAL Hx Gastrointestinal Disorders: No - GENITOURINARY/GYNECOLOGICAL Hx Genitourinary Disorders: No - PSYCHIATRIC Hx Psychophysiologic Disorder: No Hx Depression: No Hx Substance Use: No - SURGICAL HISTORY Hx Section: Yes Hx Cholecystectomy: Yes Hx Hysterectomy: Yes - ANESTHESIA Hx Anesthesia: Yes Hx Anesthesia Reactions: No Hx Malignant Hyperthermia: No Meds Allergies/Adverse Reactions: Allergies Allergy/AdvReac Type Severity Reaction Status Date / Time No Known Allergies Allergy Verified 02/11/18 12:36 - Medications Medications: Current Medications Acetaminophen (Tylenol 325mg Tab) 650 mg PO Q6H PRN PRN Reason: Fever >100.4 F Benzocaine/Menthol (Cepacol Sore Throat) 1 nicola MT Q4H LUIS Heparin Sodium (Porcine) (Heparin) 5,000 units SC Q8 LUIS PRN Reason: Protocol Pantoprazole Sodium (Protonix Ec Tab) 40 mg PO 0600 LUIS Physical Exam - Constitutional Appears: Non-toxic - Head Exam Head Exam: NORMAL INSPECTION - ENT Exam Additional comments: enlarged and erythematous bilateral tonsils with exudates on the left tonsil; cervical LAD noted - Respiratory Exam Respiratory Exam: Decreased Breath Sounds. absent: Rales - Cardiovascular Exam Cardiovascular Exam: +S1, +S2 - GI/Abdominal Exam GI & Abdominal Exam: Soft. absent: Tenderness Results - Vital Signs Recent Vital Signs: Last Vital Signs Temp 98.4 F 02/11/18 07:36 Pulse 71 02/11/18 09:26 Resp 16 02/11/18 09:26 BP 110/72 02/11/18 09:26 Pulse Ox 17 L 02/11/18 11:00 - Labs Result Diagrams: 02/11/18 05:05 02/11/18 05:05 Assessment & Plan - Assessment and Plan (Free Text) Plan: Assessment Sepsis due to acute tonsillopharyngitis with acute colitis as well obesity with BMI 33 HTN history of pneumonia S/P cholecystectomy S/P hysterectomy Plan Started the patient on Zosyn and will follow up blood cx, stool for C. diff, stool cx, fecal leukocytes follow up HIV test, EBV and CMV tests will monitor clinically
[2018-02-11 16:55] VITALS: BMI 33.3
[2018-02-11] MEDS ORDERED: Pneumococcal 23-Valent Vaccine IM ONE (16:55)
[2018-02-12] MEDS: Piperacillin/Tazobact 3.375 gm 100 ML IVPB SCH ×5 (00:19→23:47)
[2018-02-12] MEDS: Benzocaine/Menthol (Cepacol) Lozenge MT SCH ×7 (00:45→23:47)
[2018-02-12] MEDS: Sodium Chloride 0.9% 1,000 ML IV SCH (03:07)
[2018-02-12] MEDS: Pantoprazole 40 mg EC Tab PO SCH (05:45)
--- NOTE | 2018-02-12 07:00 | CP.PCM.CON ---
<Jeb Garner - Last Filed: 02/12/18 12:26> History of Present Illness - History of Present Illness History of Present Illness: Subjective: CC: Abdominal Pain, N/V HPI: Patient is a 47 year old female with a past medical history of HTN and gatritis who was admitted for evaluation and treatment of whole body aches, fevers, chills, sore throat, cough and abdominal pain which began 3 days ago. Admits to sick contacts at work. Pain originates and remains localized in the epigastric region. Admits to associated nausea and nonbloody, nonbilious emesis x 3. Admits to pain when swallowing food and liquids. Admits to one nonbloody, loose bowel movement. States she underwent EGD and colonscopy earlier this year. Patient is unaware of results but admits to taking medications to treat a bacterial cause of her gastritis. Currently denies fever, chills, chest pain, SOB, diarrhea, constipation, and urinary symptoms. PMH: HTN PSH: Hysterectomy, x2, Cholecystectomy, hernia repair Family Hx: Cancer (mother) Social Hx: Denies tobacco, alcohol, illicit drug use, Allergies: NKDA PMD: Dr. Cox Physical Examination: - Constitutional Appears: Non-toxic, No Acute Distress - Head Exam Head Exam: ATRAUMATIC, NORMOCEPHALIC - Eye Exam Eye Exam: EOMI - ENT Exam ENT Exam: Mucous Membranes Moist, absent: Normal Oropharynx, Erythema - exudates on tonsils b/l - Neck Exam Neck exam: Positive for: Lymphadenopathy, Tenderness (preauricular/ submandibular lymph nodes). Negative for: Meningismus, Thyromegaly - Respiratory Exam Respiratory Exam: Clear to Auscultation Bilateral - Cardiovascular Exam Cardiovascular Exam: +S1, +S2 - GI/Abdominal Exam GI & Abdominal Exam: Normal Bowel Sounds, Soft, Tender in the epigastric region , absent: organomegaly, rebound tenderness, rigidity - Extremities Exam Extremities exam: Positive for: normal inspection - Neurological Exam Neurological exam: Alert, Oriented x3 - Psychiatric Exam Psychiatric exam: Normal Affect, Normal Mood - Skin Skin Exam: Dry, Warm Assessment and Plan: Patient is a 47 year old female with a past medical history of HTN and gatritis who was admitted for evaluation and treatment of whole body aches, fevers, chills, sore throat, cough and abdominal pain. Patient tested positive for strep pharyngitis. Abdominal/Pelvis CT had two separate reads. VRAD read indicated possible mild acute colitis, fatty liver. Dr. Wilkerson read indicated an unremarkable non contrast enhanced CT of the abdomen and pelvis. Patient treated thus far with IVF, zosyn, flagyl, PPI, and analgesics. Abdominal Pain, Colitis Sepsis 2/2 Strep pharyngitis - no acute GI intervention required - continue with heart healthy diet - continue with zosyn, ID following- appreciate recommendations - follow up with GI in outpatient setting. Thank you for the opportunity for participating in the care of this patient Patient case reviewed and plan approved by attending physician, Dr. Monson. Past Patient History - Infectious Disease Hx of Infectious Diseases: None - Tetanus Immunizations Tetanus Immunization: Unknown - Past Social History Smoking Status: Never Smoked - CARDIAC Hx Cardiac Disorders: Yes Hx Hypertension: Yes - PULMONARY Hx Respiratory Disorders: Yes Hx Pneumonia: Yes - NEUROLOGICAL Hx Neurological Disorder: Yes Hx Dizziness: Yes (SYNCOPE) - HEENT Hx HEENT Problems: Yes (PHARYNGITIS 02-11-18) - RENAL Hx Chronic Kidney Disease: No - ENDOCRINE/METABOLIC Hx Endocrine Disorders: Yes Hx Diabetes Mellitus Type 2: Yes - HEMATOLOGICAL/ONCOLOGICAL Hx Blood Disorders: No - INTEGUMENTARY Hx Dermatological Problems: No - MUSCULOSKELETAL/RHEUMATOLOGICAL Hx Musculoskeletal Disorders: No Hx Falls: No - GASTROINTESTINAL Hx Gastrointestinal Disorders: Yes (H/O LIPOSUCTION,FATTY LIVER) Other/Comment: COLITIS - GENITOURINARY/GYNECOLOGICAL Hx Genitourinary Disorders: Yes (BREAST REDUCTION,HYSTERECTOMY,C/S) - PSYCHIATRIC Hx Psychophysiologic Disorder: No Hx Depression: No Hx Substance Use: No - SURGICAL HISTORY Hx Surgeries: Yes (LIPOSUCTION,BREAST REDUCTION,C/S) Hx Cholecystectomy: Yes Hx Hysterectomy: Yes - ANESTHESIA Hx Anesthesia: Yes Hx Anesthesia Reactions: No Hx Malignant Hyperthermia: No Meds Allergies/Adverse Reactions: Allergies Allergy/AdvReac Type Severity Reaction Status Date / Time No Known Allergies Allergy Verified 02/11/18 12:36 - Medications Medications: Current Medications Acetaminophen (Tylenol 325mg Tab) 650 mg PO Q6H PRN PRN Reason: Fever >100.4 F Acetaminophen (Tylenol 325mg Tab) 650 mg PO Q6H PRN PRN Reason: Pain, Mild (1-3) Last Admin: 02/11/18 15:30 Dose: 650 mg Benzocaine/Menthol (Cepacol Sore Throat) 1 nicola MT Q4H [facility] Last Admin: 02/12/18 03:01 Dose: 1 nicola Diphenhydramine HCl (Benadryl) 25 mg PO HS PRN PRN Reason: Insomnia Last Admin: 02/11/18 22:33 Dose: 25 mg Heparin Sodium (Porcine) (Heparin) 5,000 units SC Q8 LUIS PRN Reason: Protocol Last Admin: 02/12/18 05:55 Dose: 5,000 units Piperacillin Sod/Tazobactam Sod (Zosyn 3.375 In Ns 100ml) 100 mls @ 200 mls/hr IVPB Q6 LUIS PRN Reason: Protocol Stop: 02/18/18 12:16 Last Admin: 02/12/18 05:44 Dose: 200 mls/hr Sodium Chloride (Sodium Chloride 0.9%) 1,000 mls @ 75 mls/hr IV .[id number] [facility] Last Admin: 02/12/18 03:07 Dose: 75 mls/hr Ibuprofen (Motrin Tab) 400 mg PO Q6H PRN PRN Reason: Pain, moderate (4-7) Last Admin: 02/12/18 03:00 Dose: 400 mg Pantoprazole Sodium (Protonix Ec Tab) 40 mg PO 0600 [facility] Last Admin: 02/12/18 05:45 Dose: 40 mg Results - Vital Signs Recent Vital Signs: Last Vital Signs Temp 98.5 F 02/11/18 22:20 Pulse 74 02/11/18 22:20 Resp 18 02/11/18 22:20 BP 90/57 L 02/11/18 22:20 Pulse Ox 98 02/11/18 22:20 - Labs Result Diagrams: 02/12/18 07:50 02/12/18 07:50 Labs: Laboratory Results - last 24 hr 02/11/18 13:32 Influenza Typ A,B (EIA) Negative for flu a/b <Jonah Monson - Last Filed: 02/12/18 20:40> Meds - Medications Medications: Current Medications Acetaminophen (Tylenol 325mg Tab) 650 mg PO Q6H PRN PRN Reason: Fever >100.4 F Acetaminophen (Tylenol 325mg Tab) 650 mg PO Q6H PRN PRN Reason: Pain, Mild (1-3) Last Admin: 02/11/18 15:30 Dose: 650 mg Benzocaine/Menthol (Cepacol Sore Throat) 1 nicola MT Q4H [facility] Last Admin: 02/12/18 20:02 Dose: 1 nicola Diphenhydramine HCl (Benadryl) 25 mg PO HS PRN PRN Reason: Insomnia Last Admin: 02/11/18 22:33 Dose: 25 mg Heparin Sodium (Porcine) (Heparin) 5,000 units SC Q8 LUIS PRN Reason: Protocol Last Admin: 02/12/18 14:00 Dose: Not Given Piperacillin Sod/Tazobactam Sod (Zosyn 3.375 In Ns 100ml) 100 mls @ 200 mls/hr IVPB Q6 LUIS PRN Reason: Protocol Stop: 02/18/18 12:16 Last Admin: 02/12/18 17:33 Dose: 200 mls/hr Sodium Chloride (Sodium Chloride 0.9%) 1,000 mls @ 75 mls/hr IV .[id number] [facility] Last Admin: 02/12/18 03:07 Dose: 75 mls/hr Ibuprofen (Motrin Tab) 400 mg PO Q6H PRN PRN Reason: Pain, moderate (4-7) Last Admin: 02/12/18 09:00 Dose: 400 mg Pantoprazole Sodium (Protonix Ec Tab) 40 mg PO 0600 [facility] Last Admin: 02/12/18 05:45 Dose: 40 mg Results - Vital Signs Recent Vital Signs: Last Vital Signs Temp 98.3 F 02/12/18 14:00 Pulse 81 02/12/18 14:00 Resp 18 02/12/18 14:00 BP 130/78 02/12/18 14:00 Pulse Ox 99 02/12/18 14:00 - Labs Result Diagrams: 02/12/18 07:50 02/12/18 07:50 Attending/Attestation - Attestation I have personally seen and examined this patient.: Yes I have fully participated in the care of the patient.: Yes I have reviewed all pertinent clinical information: Yes Notes (Text): 02/12/18 20:39 47 year old female with strep throat, also with epigastric pain. Had recent egd. Recommend PPI therapy. Recommend outpatient colonoscopy after acute issues resolve. Will sign off.
[2018-02-12 08:03] LABS: BASO # 0.02 K/mm3 (0.0-2.0); BASO % 0.1 % (0.0-3.0); EOS # 0.1 (0.0-0.7); EOS % 0.5 % (1.5-5.0); GRAN # 11.19 (1.4-6.5); GRAN % 79.6 % (50.0-68.0); HEMOGLOBIN 11.7 g/dL (12.0-16.0); LYMPH # 2.1 (1.2-3.4); LYMPH % 14.7 % (22.0-35.0); MEAN CELL VOLUME 79.7 fl (80.0-105.0); MEAN CORPUSCULAR HEMOGLOBIN 27.3 pg (25.0-35.0); MEAN CORPUSCULAR HGB CONC 34.2 g/dl (31.0-37.0); MEAN PLATELET VOLUME 11.1 fl (7.0-11.0); MONO # 0.7 (0.1-0.6); MONO % 5.1 % (1.0-6.0); RBC 4.29 10^6/uL (3.5-6.1); RED CELL DISTRIBUTION WIDTH 15.1 % (11.5-14.5); WHITE BLOOD COUNT 14.1 10^3/ul (4.5-11.0)
[2018-02-12 08:09] VITALS: O2SAT 99
[2018-02-12 08:24] LABS: ALB/GLOB RATIO 1.1 (1.1-1.8); ALT/SGPT 44 U/L (7-56); AST/SGOT 23 U/L (14-36); BLOOD UREA NITROGEN 8 mg/dL (7-21); CALCIUM 8.3 mg/dL (8.4-10.5); GFR AFRICAN-AMERICAN > 60; GFR NON-AFRICAN AMERICAN > 60
--- NOTE | 2018-02-12 12:28 | CP.PCM.PN ---
Subjective - Date & Time of Evaluation Date of Evaluation: 02/12/18 Time of Evaluation: 10:40 - Subjective Subjective: Patient still with sore throat but a little less, no more fevers, no diarrhea, no nausea. Objective - Vital Signs/Intake and Output Vital Signs (last 24 hours): Temp Pulse Resp BP Pulse Ox 98.5 F 74 18 90/57 L 98 02/11/18 22:20 02/11/18 22:20 02/11/18 22:20 02/11/18 22:20 02/11/18 22:20 Intake and Output: 02/12/18 02/12/18 06:59 18:59 Intake Total 600 Balance 600 - Medications Medications: Current Medications Acetaminophen (Tylenol 325mg Tab) 650 mg PO Q6H PRN PRN Reason: Fever >100.4 F Acetaminophen (Tylenol 325mg Tab) 650 mg PO Q6H PRN PRN Reason: Pain, Mild (1-3) Last Admin: 02/11/18 15:30 Dose: 650 mg Benzocaine/Menthol (Cepacol Sore Throat) 1 nicola MT Q4H [facility] Last Admin: 02/12/18 03:01 Dose: 1 nicola Diphenhydramine HCl (Benadryl) 25 mg PO HS PRN PRN Reason: Insomnia Last Admin: 02/11/18 22:33 Dose: 25 mg Heparin Sodium (Porcine) (Heparin) 5,000 units SC Q8 LUIS PRN Reason: Protocol Last Admin: 02/12/18 05:55 Dose: 5,000 units Piperacillin Sod/Tazobactam Sod (Zosyn 3.375 In Ns 100ml) 100 mls @ 200 mls/hr IVPB Q6 LUIS PRN Reason: Protocol Stop: 02/18/18 12:16 Last Admin: 02/12/18 05:44 Dose: 200 mls/hr Sodium Chloride (Sodium Chloride 0.9%) 1,000 mls @ 75 mls/hr IV .[id number] [facility] Last Admin: 02/12/18 03:07 Dose: 75 mls/hr Ibuprofen (Motrin Tab) 400 mg PO Q6H PRN PRN Reason: Pain, moderate (4-7) Last Admin: 02/12/18 03:00 Dose: 400 mg Pantoprazole Sodium (Protonix Ec Tab) 40 mg PO 0600 [facility] Last Admin: 02/12/18 05:45 Dose: 40 mg - Labs Labs: PT 14.4 SECONDS (9.4-12.5) H 02/11/18 05:05 INR 1.26 (0.93-1.08) H 02/11/18 05:05 APTT 26.6 Seconds (25.1-36.5) 02/11/18 05:05 - Constitutional Appears: Non-toxic - Head Exam Head Exam: NORMAL INSPECTION - ENT Exam ENT Exam: Mucous Membranes Moist Additional comments: bilateral swollen tonsils, with erythema and left side with exudates - Respiratory Exam Respiratory Exam: Decreased Breath Sounds - Cardiovascular Exam Cardiovascular Exam: +S1, +S2 - GI/Abdominal Exam GI & Abdominal Exam: Soft. absent: Tenderness Assessment and Plan - Assessment and Plan (Free Text) Plan: Assessment Sepsis due to acute tonsillopharyngitis with acute colitis as well obesity with BMI 33 HTN history of pneumonia S/P cholecystectomy S/P hysterectomy Plan continue Zosyn day 2; blood cx are negative; follow up stool studies follow up HIV test, EBV and CMV tests follow up GI evaluation (? colitis - ? IBD) will continue to monitor clinically
--- NOTE | 2018-02-12 13:40 | CP.PCM.PN ---
<Eros Mckeon - Last Filed: 02/12/18 13:34> Subjective - Date & Time of Evaluation Date of Evaluation: 02/12/18 Time of Evaluation: 07:35 - Subjective Subjective: PGY1 Medicine Note for Dr. Mancia Patient seen and examined at bedside this morning. No acute events overnight. Patient's throat is still extremely sore and causing her discomfort. It is not impeding her breathing or her ability to swallow. She was able to eat and drink yesterday but does complain of painful swallowing. Her abdominal pain has resolved and she is feeling well otherwise. Denies fevers, chills, nausea, vomiting, chest pain, shortness of breath, palpitations, abdominal pain, vision changes, rashes, numbness or tingling. Objective - Vital Signs/Intake and Output Vital Signs (last 24 hours): Temp Pulse Resp BP Pulse Ox 98.4 F 67 20 129/69 99 02/12/18 08:08 02/12/18 08:08 02/12/18 08:08 02/12/18 08:08 02/12/18 08:08 Intake and Output: 02/12/18 02/12/18 06:59 18:59 Intake Total 600 360 Balance 600 360 - Medications Medications: Current Medications Acetaminophen (Tylenol 325mg Tab) 650 mg PO Q6H PRN PRN Reason: Fever >100.4 F Acetaminophen (Tylenol 325mg Tab) 650 mg PO Q6H PRN PRN Reason: Pain, Mild (1-3) Last Admin: 02/11/18 15:30 Dose: 650 mg Benzocaine/Menthol (Cepacol Sore Throat) 1 nicola MT Q4H [facility]IS Last Admin: 02/12/18 12:19 Dose: 1 nicola Diphenhydramine HCl (Benadryl) 25 mg PO HS PRN PRN Reason: Insomnia Last Admin: 02/11/18 22:33 Dose: 25 mg Heparin Sodium (Porcine) (Heparin) 5,000 units SC Q8 LUIS PRN Reason: Protocol Last Admin: 02/12/18 05:55 Dose: 5,000 units Piperacillin Sod/Tazobactam Sod (Zosyn 3.375 In Ns 100ml) 100 mls @ 200 mls/hr IVPB Q6 LUIS PRN Reason: Protocol Stop: 02/18/18 12:16 Last Admin: 02/12/18 12:17 Dose: 200 mls/hr Sodium Chloride (Sodium Chloride 0.9%) 1,000 mls @ 75 mls/hr IV .[id number] [facility] Last Admin: 02/12/18 03:07 Dose: 75 mls/hr Ibuprofen (Motrin Tab) 400 mg PO Q6H PRN PRN Reason: Pain, moderate (4-7) Last Admin: 02/12/18 09:00 Dose: 400 mg Pantoprazole Sodium (Protonix Ec Tab) 40 mg PO 0600 [facility] Last Admin: 02/12/18 05:45 Dose: 40 mg - Labs Labs: 02/12/18 07:50 02/12/18 07:50 PT 14.4 SECONDS (9.4-12.5) H 02/11/18 05:05 INR 1.26 (0.93-1.08) H 02/11/18 05:05 APTT 26.6 Seconds (25.1-36.5) 02/11/18 05:05 - Constitutional Appears: Non-toxic, Other (appears uncomfortable) - Head Exam Head Exam: ATRAUMATIC, NORMOCEPHALIC - Eye Exam Eye Exam: EOMI, Normal appearance - ENT Exam ENT Exam: Mucous Membranes Moist. absent: Normal Oropharynx (Erythema - exudates on tosils b/l) - Neck Exam Neck Exam: Lymphadenopathy, Tenderness (preauricular/submandibular lymph nodes) - Respiratory Exam Respiratory Exam: Clear to Ausculation Bilateral, NORMAL BREATHING PATTERN. absent: Accessory Muscle Use, Rales, Rhonchi, Wheezes, Respiratory Distress - Cardiovascular Exam Cardiovascular Exam: REGULAR RHYTHM, +S1, +S2 - GI/Abdominal Exam GI & Abdominal Exam: Soft, Tenderness (mildly sore), Normal Bowel Sounds. absent: Distended, Firm, Guarding, Rigid - Extremities Exam Extremities Exam: absent: Calf Tenderness, Pedal Edema - Back Exam Back Exam: absent: CVA tenderness (L), CVA tenderness (R) - Neurological Exam Neurological Exam: Alert, Awake, CN II-XII Intact, Oriented x3 - Psychiatric Exam Psychiatric exam: Normal Affect, Normal Mood - Skin Skin Exam: Dry, Warm Assessment and Plan - Assessment and Plan (Free Text) Assessment: Patient is a 47 year old female with a past medical history of HTN presenting to the hospital with flu-like symptoms and was found to have sepsis, with strep throat and possible colitis. Plan: Sepsis - Bandemia Code sepsis called Infectious Disease consulted, Dr. Nicole - help appreciated - continue zosyn, f/u HIV, CMV, EBV WBC 24.5 upon admission - improved to 14.1 Flu - negative Strep - positive f/u HIV f/u CMV f/u Marcela-Mesa blood culture - no growth at 24 hours furine culture - negative Zosyn 3.375gm IVPB q6h (Started on 02/11) ED Course: Aspirin 325mg, Tylenol 975mg, 2L bolus of NS, Zosyn 4.5gm IVPB and Flagyl 500mg IVPB Abdominal Pain (resolved) GI consulted, Dr. Monson - help appreciated Per GI note, - no acute GI intervention, follow up with GI in outpatient setting. Per patient, - hx of 3 EGDs - possibly treated for H. Pylori in the past - hx of 2 Colonoscopies in past - both normal - Patient was seeing a Dr. Curry? in [place] - will attempt to find number and call for records. Abdominal/Pelvis CT - had two reads - VRAD: Possible mild acute colitis. Fatty Liver. Too small to characterize bilateral renal lesions, probably cysts. No follow up necessary. - Dr. Wilkerson: Unremarkable non contrast enhanced CT of the abdomen and pelvis Protonix 40mg PO daily Strep Throat Positive group A strep Cepacol Zosyn 3.375gm IVPB q6h Prophylactic Care Protonix 40mg PO daily Heparin 5,000units SC q8h Case Discussed with Dr. Blanche Voran PGY1 <Vanessa Mancia - Last Filed: 02/12/18 17:34> Objective - Vital Signs/Intake and Output Vital Signs (last 24 hours): Temp Pulse Resp BP Pulse Ox 98.3 F 81 18 130/78 99 02/12/18 14:00 02/12/18 14:00 02/12/18 14:00 02/12/18 14:00 02/12/18 14:00 - Medications Medications: Current Medications Acetaminophen (Tylenol 325mg Tab) 650 mg PO Q6H PRN PRN Reason: Fever >100.4 F Acetaminophen (Tylenol 325mg Tab) 650 mg PO Q6H PRN PRN Reason: Pain, Mild (1-3) Last Admin: 02/11/18 15:30 Dose: 650 mg Benzocaine/Menthol (Cepacol Sore Throat) 1 nicola MT Q4H [facility] Last Admin: 02/12/18 12:19 Dose: 1 nicola Diphenhydramine HCl (Benadryl) 25 mg PO HS PRN PRN Reason: Insomnia Last Admin: 02/11/18 22:33 Dose: 25 mg Heparin Sodium (Porcine) (Heparin) 5,000 units SC Q8 LUIS PRN Reason: Protocol Last Admin: 02/12/18 14:00 Dose: Not Given Piperacillin Sod/Tazobactam Sod (Zosyn 3.375 In Ns 100ml) 100 mls @ 200 mls/hr IVPB Q6 [facility]IS PRN Reason: Protocol Stop: 02/18/18 12:16 Last Admin: 02/12/18 12:17 Dose: 200 mls/hr Sodium Chloride (Sodium Chloride 0.9%) 1,000 mls @ 75 mls/hr IV .[id number] [facility] Last Admin: 02/12/18 03:07 Dose: 75 mls/hr Ibuprofen (Motrin Tab) 400 mg PO Q6H PRN PRN Reason: Pain, moderate (4-7) Last Admin: 02/12/18 09:00 Dose: 400 mg Pantoprazole Sodium (Protonix Ec Tab) 40 mg PO 0600 [facility] Last Admin: 02/12/18 05:45 Dose: 40 mg - Labs Labs: PT 14.4 SECONDS (9.4-12.5) H 02/11/18 05:05 INR 1.26 (0.93-1.08) H 02/11/18 05:05 APTT 26.6 Seconds (25.1-36.5) 02/11/18 05:05 Attending/Attestation - Attestation I have personally seen and examined this patient.: Yes I have fully participated in the care of the patient.: Yes I have reviewed all pertinent clinical information, including history, physical exam and plan: Yes Notes (Text): 02/12/18 17:32 attending note; patient seen and examined with resident. Patient is a 47 year old female with a past medical history of hypertension presenting to the emergency room with a chief complaint of whole body aches, subjective fevers, chills, sore throat, cough and abdominal pain. found to have strep pharyngitis/tonsillitis. Tonsills shows mild exudatives. still complaining of throat discomfort. patient also had nonspecific abdominal discomfort. CT abdomen and pelvis showed diffuse colitis. Started on IV Zosyn. HIV is negative. EBV, CMV is pending. leukocytosis/fever; sepsis protocol followed. WBC count is improving. CT head is negative. CT neck showed no retropharyngeal abscess. Case discussed with ID in detail. monitor clinically. colitis; GI evaluation appreciated. Needs outpatient follow up. Patient had EGD in the past over 3 years ago. Treated for H. pylori. Patient also had colonoscopy previously over 3 years ago which was normal as per patient. Upon discharge The patient will follow-up with PMD Dr. Cox. 02/12/18 17:33
[2018-02-12 22:07] VITALS: RESP 20
[2018-02-13] MEDS: Benzocaine/Menthol (Cepacol) Lozenge MT SCH ×5 (04:49→19:24)
[2018-02-13] MEDS: Piperacillin/Tazobact 3.375 gm 100 ML IVPB SCH ×3 (05:39→17:17)
[2018-02-13] MEDS: Pantoprazole 40 mg EC Tab PO SCH (05:40)
[2018-02-13] MEDS ORDERED: Albuterol-Ipratrop 3 mg / 0.5 (3 ml) UD IH STA (08:32)
[2018-02-13] MEDS: Sodium Chloride 0.9% 1,000 ML IV SCH (09:10)
[2018-02-13 09:24] LABS: BASO # 0.03 K/mm3 (0.0-2.0); BASO % 0.4 % (0.0-3.0); EOS # 0.2 (0.0-0.7); EOS % 2.3 % (1.5-5.0); GRAN # 4.39 (1.4-6.5); GRAN % 62.4 % (50.0-68.0); HEMOGLOBIN 12.5 g/dL (12.0-16.0); LYMPH % 28.4 % (22.0-35.0); MEAN CELL VOLUME 79.6 fl (80.0-105.0); MEAN CORPUSCULAR HEMOGLOBIN 27.1 pg (25.0-35.0); MEAN CORPUSCULAR HGB CONC 34.1 g/dl (31.0-37.0); MEAN PLATELET VOLUME 10.5 fl (7.0-11.0); MONO # 0.5 (0.1-0.6); MONO % 6.5 % (1.0-6.0); RBC 4.61 10^6/uL (3.5-6.1); RED CELL DISTRIBUTION WIDTH 14.5 % (11.5-14.5)
[2018-02-13 09:35] LABS: ALBUMIN 3.5 g/dL (3.0-4.8); ALT/SGPT 45 U/L (7-56); AST/SGOT 27 U/L (14-36); BLOOD UREA NITROGEN 6 mg/dL (7-21); CALCIUM 8.7 mg/dL (8.4-10.5); GFR AFRICAN-AMERICAN > 60; GFR NON-AFRICAN AMERICAN > 60
[2018-02-13] MEDS: Metoprolol Succinate 25 mg XL Tab PO SCH (12:20)
[2018-02-13] MEDS: Insulin Regular 1 UNITS/0.01 ML ML SC SCH ×3 (12:22→21:56)
[2018-02-13] MEDS ORDERED: Albuterol-Ipratrop 3 mg / 0.5 (3 ml) UD IH PRN (14:45)
--- NOTE | 2018-02-13 14:49 | CP.PCM.PN ---
<Eros Mckeon - Last Filed: 02/13/18 14:46> Subjective - Date & Time of Evaluation Date of Evaluation: 02/13/18 Time of Evaluation: 06:55 - Subjective Subjective: PGY1 Medicine Note for Dr. Mancia Patient seen and examined at bedside this morning. No acute events overnight. Patient is still complaining of severe sore throat. Today she reports that she has a history of asthma and that she is experiencing some SOB. She takes a Spirva inhaler at home as need. She was able to tolerate her diet but is still having painful swallowing. She had 5 episodes of watery diarrhea overnight. She states she feels overall weak. She has back pain but states she has been laying in bed since she has been in the hospital. Denies fevers, chills, nausea, vomiting, chest pain, palpitations, abdominal pain, headache, vision changes, rashes, numbness, tingling, lightheadedness or dizziness. Objective - Vital Signs/Intake and Output Vital Signs (last 24 hours): Temp Pulse Resp BP Pulse Ox 98.2 F 74 20 161/87 H 99 02/13/18 08:09 02/13/18 12:20 02/13/18 08:09 02/13/18 12:20 02/13/18 08:09 Intake and Output: 02/13/18 02/13/18 06:59 18:59 Intake Total 1340 860 Output Total 0 Balance 1340 860 - Medications Medications: Current Medications Acetaminophen (Tylenol 325mg Tab) 650 mg PO Q6H PRN PRN Reason: Fever >100.4 F Acetaminophen (Tylenol 325mg Tab) 650 mg PO Q6H PRN PRN Reason: Pain, Mild (1-3) Last Admin: 02/11/18 15:30 Dose: 650 mg Albuterol/Ipratropium (Duoneb 3 Mg/0.5 Mg (3 Ml) Ud) 3 ml IH [id number] PRN PRN Reason: Shortness of Breath Benzocaine/Menthol (Cepacol Sore Throat) 1 nicola MT Q4H [facility] Last Admin: 02/13/18 12:20 Dose: 1 nicola Diphenhydramine HCl (Benadryl) 25 mg PO HS PRN PRN Reason: Insomnia Last Admin: 02/11/18 22:33 Dose: 25 mg Heparin Sodium (Porcine) (Heparin) 5,000 units SC Q8 [facility] PRN Reason: Protocol Last Admin: 02/13/18 05:40 Dose: 5,000 units Piperacillin Sod/Tazobactam Sod (Zosyn 3.375 In Ns 100ml) 100 mls @ 200 mls/hr IVPB Q6 [facility] PRN Reason: Protocol Stop: 02/18/18 12:16 Last Admin: 02/13/18 12:22 Dose: 200 mls/hr Sodium Chloride (Sodium Chloride 0.9%) 1,000 mls @ 75 mls/hr IV .[id number] [facility] Last Admin: 02/13/18 09:10 Dose: 75 mls/hr Ibuprofen (Motrin Tab) 400 mg PO Q6H PRN PRN Reason: Pain, moderate (4-7) Last Admin: 02/12/18 20:45 Dose: 400 mg Insulin Human Regular (Humulin R) 0 units SC ACHS [facility]IS PRN Reason: Protocol Last Admin: 02/13/18 12:22 Dose: Not Given Metoprolol Succinate (Toprol Xl) 25 mg PO DAILY [facility] Last Admin: 02/13/18 12:20 Dose: 25 mg Pantoprazole Sodium (Protonix Ec Tab) 40 mg PO 0600 [facility] Last Admin: 02/13/18 05:40 Dose: 40 mg - Labs Labs: 02/13/18 09:00 02/13/18 09:00 PT 14.4 SECONDS (9.4-12.5) H 02/11/18 05:05 INR 1.26 (0.93-1.08) H 02/11/18 05:05 APTT 26.6 Seconds (25.1-36.5) 02/11/18 05:05 - Constitutional Appears: Non-toxic, No Acute Distress - Head Exam Head Exam: ATRAUMATIC, NORMOCEPHALIC - Eye Exam Eye Exam: EOMI, Normal appearance - ENT Exam ENT Exam: Mucous Membranes Moist. absent: Normal Oropharynx (improving erythema ) - Neck Exam Neck Exam: Lymphadenopathy (preauricular/submandibular lymph nodes), Tenderness (preauricular/submandibular lymph nodes) - Respiratory Exam Respiratory Exam: Clear to Ausculation Bilateral, NORMAL BREATHING PATTERN. absent: Accessory Muscle Use, Chest Wall Tenderness, Rales, Rhonchi, Wheezes, Respiratory Distress - Cardiovascular Exam Cardiovascular Exam: REGULAR RHYTHM, +S1, +S2 - GI/Abdominal Exam GI & Abdominal Exam: Soft, Normal Bowel Sounds. absent: Distended, Firm, Guarding, Rigid, Tenderness - Extremities Exam Extremities Exam: absent: Calf Tenderness, Pedal Edema - Back Exam Back Exam: NORMAL INSPECTION. absent: CVA tenderness (L), CVA tenderness (R), muscle spasm, paraspinal tenderness, vertebral tenderness - Neurological Exam Neurological Exam: Alert, Awake, CN II-XII Intact, Oriented x3 - Psychiatric Exam Psychiatric exam: Normal Affect, Normal Mood - Skin Skin Exam: Dry, Warm Assessment and Plan - Assessment and Plan (Free Text) Assessment: Patient is a 47 year old female with a past medical history of HTN presenting to the hospital with flu-like symptoms and was found to have sepsis, with strep throat and possible colitis. Plan: Sepsis - Bandemia Code sepsis called Infectious Disease consulted, Dr. Nicole - help appreciated WBC 24.5 upon admission - resolved 7.0 Flu - negative Strep - positive HIV - negative f/u CMV Marcela-Mesa * EBV Ag IgG Ab >750 (positive) * EBV Ag IgM Ab <36 (negative) blood culture - no growth at 24 hours furine culture - negative Zosyn 3.375gm IVPB q6h (Started on 02/11, last dose on 02/18) Tylenol 650mg PO q6h prn Ibuprofen 400mg PO q6h prn ED Course: Aspirin 325mg, Tylenol 975mg, 2L bolus of NS, Zosyn 4.5gm IVPB and Flagyl 500mg IVPB Strep Throat ENT consulted, Dr. Chaudhary - help appreciated Positive group A strep Cepacol Zosyn 3.375gm IVPB q6h Diarrhea C. Diff - f/u Stool Culture - f/u Fecal Leuk - f/u Abdominal Pain (resolved) GI consulted, Dr. Monson - help appreciated Per GI note, - no acute GI intervention, follow up with GI in outpatient setting. Per patient, - hx of 3 EGDs - possibly treated for H. Pylori in the past - hx of 2 Colonoscopies in past - both normal Abdominal/Pelvis CT - had two reads - [facility]AD: Possible mild acute colitis. Fatty Liver. Too small to characterize bilateral renal lesions, probably cysts. No follow up necessary. - Dr. Wilkerson: Unremarkable non contrast enhanced CT of the abdomen and pelvis Protonix 40mg PO daily Hx of Hypertension Started home Metoprolol Succ. 25mg PO daily Hyperglycemia Patient denies history of diabetes ISS - low dose Hx of Asthma Duoneb 3mL INH q4h prn for SOB Prophylactic Care Protonix 40mg PO daily Heparin 5,000units SC q8h Case Discussed with Dr. Blanche Mckeon PGY1 <Vanessa Mancia - Last Filed: 02/13/18 15:22> Objective - Vital Signs/Intake and Output Vital Signs (last 24 hours): Temp Pulse Resp BP Pulse Ox 98.2 F 74 20 161/87 H 99 02/13/18 08:09 02/13/18 12:20 02/13/18 08:09 02/13/18 12:20 02/13/18 08:09 Intake and Output: 02/13/18 02/13/18 06:59 18:59 Intake Total 1340 860 Output Total 0 Balance 1340 860 - Medications Medications: Current Medications Acetaminophen (Tylenol 325mg Tab) 650 mg PO Q6H PRN PRN Reason: Fever >100.4 F Acetaminophen (Tylenol 325mg Tab) 650 mg PO Q6H PRN PRN Reason: Pain, Mild (1-3) Last Admin: 02/11/18 15:30 Dose: 650 mg Albuterol/Ipratropium (Duoneb 3 Mg/0.5 Mg (3 Ml) Ud) 3 ml IH [id number] PRN PRN Reason: Shortness of Breath Benzocaine/Menthol (Cepacol Sore Throat) 1 nicola MT Q4H [facility] Last Admin: 02/13/18 12:20 Dose: 1 nicola Diphenhydramine HCl (Benadryl) 25 mg PO HS PRN PRN Reason: Insomnia Last Admin: 02/11/18 22:33 Dose: 25 mg Heparin Sodium (Porcine) (Heparin) 5,000 units SC Q8 [facility] PRN Reason: Protocol Last Admin: 02/13/18 15:01 Dose: Not Given Piperacillin Sod/Tazobactam Sod (Zosyn 3.375 In Ns 100ml) 100 mls @ 200 mls/hr IVPB Q6 [facility]IS PRN Reason: Protocol Stop: 02/18/18 12:16 Last Admin: 02/13/18 12:22 Dose: 200 mls/hr Sodium Chloride (Sodium Chloride 0.9%) 1,000 mls @ 75 mls/hr IV .[id number] [facility] Last Admin: 02/13/18 09:10 Dose: 75 mls/hr Ibuprofen (Motrin Tab) 400 mg PO Q6H PRN PRN Reason: Pain, moderate (4-7) Last Admin: 02/12/18 20:45 Dose: 400 mg Insulin Human Regular (Humulin R) 0 units SC ACHS [facility] PRN Reason: Protocol Last Admin: 02/13/18 12:22 Dose: Not Given Metoprolol Succinate (Toprol Xl) 25 mg PO DAILY [facility] Last Admin: 02/13/18 12:20 Dose: 25 mg Pantoprazole Sodium (Protonix Ec Tab) 40 mg PO 0600 [facility] Last Admin: 02/13/18 05:40 Dose: 40 mg - Labs Labs: 02/13/18 09:00 02/13/18 09:00 PT 14.4 SECONDS (9.4-12.5) H 02/11/18 05:05 INR 1.26 (0.93-1.08) H 02/11/18 05:05 APTT 26.6 Seconds (25.1-36.5) 02/11/18 05:05 Attending/Attestation - Attestation I have personally seen and examined this patient.: Yes I have fully participated in the care of the patient.: Yes I have reviewed all pertinent clinical information, including history, physical exam and plan: Yes Notes (Text): 02/13/18 15:17 attending note; patient seen and examined with resident. Patient is a 47 year old female with a past medical history of hypertension presenting to the emergency room with a chief complaint of body aches, subjective fevers, chills, sore throat, cough and abdominal pain. found to have strep pharyngitis/tonsillitis. Tonsills shows mild exudatives. still complaining of throat discomfort. we will get ENT evaluation. Marcela-Mesa virus IgG is positive. patient also had nonspecific abdominal discomfort. CT abdomen and pelvis showed diffuse colitis. Started on IV Zosyn. HIV is negative. history of asthma; continue DuoNeb when necessary. leukocytosis/fever; sepsis protocol followed. WBC count is normal. CT head is negative. CT neck showed no retropharyngeal abscess. Case discussed with ID in detail. monitor clinically. colitis; GI evaluation appreciated. Needs outpatient follow up. hypertension; started on metoprolol on Cozaar. Upon discharge The patient will follow-up with PMD Dr. Cox.
[2018-02-14] MEDS: Piperacillin/Tazobact 3.375 gm 100 ML IVPB SCH ×2 (00:34→06:03)
[2018-02-14] MEDS: Benzocaine/Menthol (Cepacol) Lozenge MT SCH ×4 (00:34→12:35)
--- NOTE | 2018-02-14 02:02 | PN ---
DATE: 02/13/2018 SUBJECTIVE: Patient seen in bed, seen earlier this morning in room 570, bed 2. PHYSICAL EXAMINATION VITAL SIGNS: Temperature of 98, blood pressure is 140/90, respiratory rate of 20. HEENT: Unremarkable. NECK: Supple. LUNGS: Have decreased breath sounds. HEART: Normal S1, S2. ABDOMEN: Soft, nontender. LABORATORY DATA: Reveals white count of 7000, hemoglobin of 12, platelets of 201. Chemistries reveals BUN of 6, creatinine of 0.6. Urinalysis was noted. Group A strep antigen is positive. Throat cultures have no growth. Urine cultures have no growth. MEDICATIONS: The patient is on Zosyn. Soft tissue CAT scan of the neck here shown no acute findings. No mass or fluid collection. Patient's HIV is negative. ASSESSMENT AND PLAN: This is a 47-year-old female seen early this morning in room 570, bed 2 with sepsis, with acute tonsillopharyngitis secondary to Streptococcus, also with obesity with BMI of 33, hypertension, pneumonia, cholecystectomy, hysterectomy, day #3 of Zosyn. Group A beta Streptococcus antigen is positive. Will follow with you. note is appreciated. Dion Larson MD
[2018-02-14] MEDS: Pantoprazole 40 mg EC Tab PO SCH (06:02)
[2018-02-14] MEDS: Insulin Regular 1 UNITS/0.01 ML ML SC SCH ×2 (08:05→11:40)
[2018-02-14 08:25] LABS: BASO # 0.03 K/mm3 (0.0-2.0); BASO % 0.4 % (0.0-3.0); EOS # 0.2 (0.0-0.7); EOS % 2.8 % (1.5-5.0); GRAN # 5.34 (1.4-6.5); GRAN % 64.6 % (50.0-68.0); HEMOGLOBIN 12.6 g/dL (12.0-16.0); LYMPH # 2.3 (1.2-3.4); LYMPH % 27.7 % (22.0-35.0); MEAN CELL VOLUME 78.3 fl (80.0-105.0); MEAN CORPUSCULAR HEMOGLOBIN 26.5 pg (25.0-35.0); MEAN CORPUSCULAR HGB CONC 33.9 g/dl (31.0-37.0); MEAN PLATELET VOLUME 10.7 fl (7.0-11.0); MONO # 0.4 (0.1-0.6); MONO % 4.5 % (1.0-6.0); RBC 4.75 10^6/uL (3.5-6.1); RED CELL DISTRIBUTION WIDTH 14.3 % (11.5-14.5); WHITE BLOOD COUNT 8.3 10^3/ul (4.5-11.0)
[2018-02-14 08:29] VITALS: TEMP 98.2
[2018-02-14 08:42] LABS: ALBUMIN 3.8 g/dL (3.0-4.8); ALT/SGPT 61 U/L (7-56); AST/SGOT 41 U/L (14-36); BLOOD UREA NITROGEN 6 mg/dL (7-21); CALCIUM 8.8 mg/dL (8.4-10.5); GFR AFRICAN-AMERICAN > 60; GFR NON-AFRICAN AMERICAN > 60
--- NOTE | 2018-02-14 08:57 | CON ---
DATE: 02/13/2018 HISTORY OF PRESENT ILLNESS: The patient was evaluated regarding chronic sore throat for approximately 5-7 day time span. She was admitted to [facility] and placed on IV antibiotics with an extremely sore throat and some elevated white blood cell counts and low grade fevers. The patient during her 3-day hospital courses, fail to respond appropriately to the IV antibiotics as the throat pain persists. There was previous positive strep culture and the patient has been recently started on the sliding scale for hyperglycemia. PAST MEDICAL HISTORY: Positive for hypertension. CT scan of the neck revealed no evidence of parapharyngeal deep neck space abscesses. ALLERGIES: THERE WERE NO KNOWN DRUG ALLERGIES. PHYSICAL EXAMINATION: NECK: The tonsils noted to be 3+ bilaterally hypertrophy cryptic in nature. Some exudates noted. There was mild adenopathy noted on neck examination. HEENT: The tympanic membrane and external auditory canals were normal bilaterally. Intranasal examination was unremarkable. IMPRESSION: The patient's diagnosis is an acute tonsillitis, rule out mono, possible coexisting strep. PLAN: Would be to obtain Monospot and consider IV steroids, Decadron 10 mg every 8 hours, if not medically contraindicated based on her hyperglycemia. This will probably expedite the resolution of her symptoms more so than the IV antibiotics. Should the Monospot be positive, would consider sending home on outpatient prednisone without antibiotic therapy. If you have further questions, feel free to contact my office. Gustavo Ferrara DO
[2018-02-14] MEDS ORDERED: Potassium Chloride 20 mEq ER Tab PO ONE ×2 (09:11→12:16)
[2018-02-14] MEDS: Metoprolol Succinate 25 mg XL Tab PO SCH (10:10)
[2018-02-14 10:16] VITALS: BP 154/91; PULSE 60
--- NOTE | 2018-02-14 13:33 | CP.PCM.DIS ---
<Eros Mckeon - Last Filed: 02/14/18 18:39> Provider - Provider Date of Admission: 02/12/18 14:40 Attending physician: Vanessa Mancia MD Primary care physician: Jesica Cox MD Consults: ID - Dr. Nicole ENT - Dr. Chaudhary Time Spent in preparation of Discharge (in minutes): 35 Diagnosis - Discharge Diagnosis (1) Colitis Status: Resolved (2) Pharyngitis Status: Resolved (3) Sepsis Status: Resolved Hospital Course - Lab Results Lab Results: Most Recent Lab Values WBC 8.3 10^3/ul (4.5-11.0) 02/14/18 08:00 RBC 4.75 10^6/uL (3.5-6.1) 02/14/18 08:00 Hgb 12.6 g/dL (12.0-16.0) 02/14/18 08:00 Hct 37.2 % (36.0-48.0) 02/14/18 08:00 MCV 78.3 fl (80.0-105.0) L 02/14/18 08:00 MCH 26.5 pg (25.0-35.0) 02/14/18 08:00 MCHC 33.9 g/dl (31.0-37.0) 02/14/18 08:00 RDW 14.3 % (11.5-14.5) 02/14/18 08:00 Plt Count 238 10^3/uL (120.0-450.0) 02/14/18 08:00 MPV 10.7 fl (7.0-11.0) 02/14/18 08:00 Gran % 64.6 % (50.0-68.0) 02/14/18 08:00 Lymph % (Auto) 27.7 % (22.0-35.0) 02/14/18 08:00 Fountain % (Auto) 4.5 % (1.0-6.0) 02/14/18 08:00 Eos % (Auto) 2.8 % (1.5-5.0) 02/14/18 08:00 Baso % (Auto) 0.4 % (0.0-3.0) 02/14/18 08:00 Gran # 5.34 (1.4-6.5) 02/14/18 08:00 Lymph # (Auto) 2.3 (1.2-3.4) 02/14/18 08:00 F[place] # (Auto) 0.4 (0.1-0.6) 02/14/18 08:00 Eos # (Auto) 0.2 (0.0-0.7) 02/14/18 08:00 Baso # (Auto) 0.03 K/mm3 (0.0-2.0) 02/14/18 08:00 Neutrophils % (Manual) 90 % (50.0-70.0) H 02/11/18 05:05 Band Neutrophils % 5 % (0-2) H 02/11/18 05:05 Lymphocytes % (Manual) 2 % (22.0-35.0) L 02/11/18 05:05 Monocytes % (Manual) 3 % (1.0-6.0) 02/11/18 05:05 Platelet Evaluation Normal (NORMAL) 02/11/18 05:05 PT 14.4 SECONDS (9.4-12.5) H 02/11/18 05:05 INR 1.26 (0.93-1.08) H 02/11/18 05:05 APTT 26.6 Seconds (25.1-36.5) 02/11/18 05:05 pO2 189 mm/Hg (30-55) H 02/11/18 08:00 VBG pH 7.37 (7.32-7.43) 02/11/18 08:00 VBG pCO2 41.0 (40-60) 02/11/18 08:00 VBG HCO3 23.7 mmol/l (21-28) 02/11/18 08:00 VBG Total CO2 25.0 mmol.L (22-28) 02/11/18 08:00 VBG O2 Sat (Calc) 100.7 % (40-65) H 02/11/18 08:00 VBG Base Excess -1.5 mmol/L (0.0-2.0) L 02/11/18 08:00 VBG Potassium 3.7 mmol/L (3.6-5.2) 02/11/18 08:00 Sodium 137.0 mmol/L (132-148) 02/11/18 08:00 Chloride 107.0 mmol/L (98-107) 02/11/18 08:00 Glucose 126 mg/dl (65-105) H 02/11/18 08:00 Lactate 1.6 mmol/L (0.7-2.1) 02/11/18 08:00 FiO2 21.0 % 02/11/18 08:00 Sodium 147 mmol/L (132-148) 02/14/18 08:00 Potassium 3.4 mmol/L (3.6-5.0) L 02/14/18 08:00 Chloride 110 mmol/L (98-107) H 02/14/18 08:00 Carbon Dioxide 26 mmol/L (21-33) 02/14/18 08:00 Anion Gap 14 (10-20) 02/14/18 08:00 BUN 6 mg/dL (7-21) L 02/14/18 08:00 Creatinine 0.7 mg/dl (0.7-1.2) 02/14/18 08:00 Est GFR ( Amer) > 60 02/14/18 08:00 Est GFR (Non-Af Amer) > 60 02/14/18 08:00 POC Glucose (mg/dL) 88 mg/dL (65-110) 02/14/18 07:02 Random Glucose 100 mg/dL (70-110) 02/14/18 08:00 Calcium 8.8 mg/dL (8.4-10.5) 02/14/18 08:00 Phosphorus 4.0 mg/dL (2.5-4.5) 02/14/18 08:00 Magnesium 2.0 mg/dL (1.7-2.2) 02/14/18 08:00 Total Bilirubin 0.8 mg/dL (0.2-1.3) 02/14/18 08:00 AST 41 U/L (14-36) H D 02/14/18 08:00 ALT 61 U/L (7-56) H 02/14/18 08:00 Alkaline Phosphatase 67 U/L (38-126) 02/14/18 08:00 Lactate Dehydrogenase 433 U/L (333-699) 02/11/18 05:05 Total Creatine Kinase 59 U/L (35-230) 02/11/18 05:05 Troponin I < 0.01 ng/mL 02/11/18 05:05 Total Protein 7.4 g/dL (5.8-8.3) 02/14/18 08:00 Albumin 3.8 g/dL (3.0-4.8) 02/14/18 08:00 Globulin 3.7 gm/dL 02/14/18 08:00 Albumin/Globulin Ratio 1.0 (1.1-1.8) L 02/14/18 08:00 Venous Blood Potassium 3.7 mmol/L (3.6-5.2) 02/11/18 08:00 Urine Color Yellow (YELLOW) 02/11/18 06:54 Urine Appearance Clear (CLEAR) 02/11/18 06:54 Urine pH 6.0 (4.7-8.0) 02/11/18 06:54 Ur Specific [place] 1.010 (1.005-1.035) 02/11/18 06:54 Urine Protein Trace mg/dL (<30 mg/dL) H 02/11/18 06:54 Urine Glucose (UA) Negative mg/dL (NEGATIVE) 02/11/18 06:54 Urine Ketones Negative mg/dL (NEGATIVE) 02/11/18 06:54 Urine Blood Negative (NEGATIVE) 02/11/18 06:54 Urine Nitrate Negative (NEGATIVE) 02/11/18 06:54 Urine Bilirubin Negative (NEGATIVE) 02/11/18 06:54 Urine Urobilinogen 1.0 E.U./dL (<1 E.U./dL) H 02/11/18 06:54 Ur Leukocyte Esterase Negative Renzo/uL (NEGATIVE) 02/11/18 06:54 Urine RBC 0 - 2 /hpf (0-2) 02/11/18 06:54 Urine WBC 0 - 2 /hpf (0-6) 02/11/18 06:54 Ur Epithelial Cells 4 - 5 /hpf (0-5) 02/11/18 06:54 Urine Bacteria Few (NEG) 02/11/18 06:54 Stool Leukocytes, Qual Negative (NEGATIVE) 02/13/18 07:57 EBV Capsid Ag IgG Ab >750.00 U/mL H 02/12/18 07:00 EBV Capsid Ag IgM Ab <36.00 U/mL 02/12/18 07:00 HIV 1&2 Ag/Ab, 4th Gen Nonreactive (Nonreactive) 02/11/18 11:49 Influenza Typ A,B (EIA) Negative for flu a/b (NEGATIVE) 02/11/18 13:32 Grp A Beta Strep Ag Positive (NEGATIVE) H 02/11/18 06:54 - Hospital Course Hospital Course: As per admission documentation Patient is a 47 year old man with a past medical history of HTN presenting to the emergency room with a chief complaint of whole body aches, subjective fevers , chills, sore throat, cough and abdominal pain. The symptoms started 2-3 days ago upon waking up. 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 Her cough is is non-productive. The abdominal pain is a vague and diffuse pain. The pain is worst in the epigastric region and does not radiate. She is currently nauseous and vomited 3 times yesterday. The emesis was described as non-bloody and yellowish. Her sore throat has made is painful to sallow but has not cause her any difficulty with breathing. She is hungry and asking for food. She had one episode of a loose bowel movement, denies bloody or black stools. She has only taken Tylenol for her fever and pain. Patient complains of overall fatigue and weakness. Denies chest pain, shortness of breath, vision changes, rashes, numbness or tingling. Hospital Course Patient was admitted to the hospital for strep pharyngitis and colitis, code Sepsis called. While in the ED, the patient was treated with Aspirin 325mg, Tylenol 975mg, 2L bolus of NS, Zosyn 4.5gm IVPB and Flagyl 500mg IVPB. She was treated with Zosyn throughout her stay. GI evaluated the patient and decided there was no acute intervention needed. Patient experienced diarrhea on her second day of admission, but resolved within one day. Patient was stable and afebrile throughout her hospital stay. Patient's sore throat, erythema and exudates resolved by date of discharge. She was discharged with the following instructions. Discharge Insurance 1. Patient is to be discharged home 2. Patient is to follow with her primary care physician within 1-2 days. 3. Patient is to take medications as directed and discuss medications with primary care physician. - Make sure to finish entire 7 day course of Augmentin, take 1 tab every 12 hours. 4. If the patient feels any new or worsening symptoms, please go directly to the nearest emergency room. 5. Thank you for allowing us to take part in your care. Take care and be well. This is just a brief summary of the patient's hospital course. For full detail, please see EMR. Physical Exam Appears: Non-toxic, No Acute Distress Head Exam: ATRAUMATIC, NORMOCEPHALIC Eye Exam: EOMI, Normal appearance ENT Exam: Mucous Membranes Moist. Normal Oropharynx (erythema - resolved, no exudates) Neck Exam: improving Lymphadenopathy (preauricular/submandibular lymph nodes), improving mild Tenderness (preauricular/submandibular lymph nodes) Respiratory Exam: Clear to Ausculation Bilateral, NORMAL BREATHING PATTERN. absent: Accessory Muscle Use, Chest Wall Tenderness, Rales, Rhonchi, Wheezes, Respiratory Distress Cardiovascular Exam: REGULAR RHYTHM, +S1, +S2 GI & Abdominal Exam: Soft, Normal Bowel Sounds. absent: Distended, Firm, Guarding, Rigid, Tenderness Extremities Exam: absent: Calf Tenderness, Pedal Edema Back Exam: NORMAL INSPECTION. absent: CVA tenderness (L), CVA tenderness (R), muscle spasm, paraspinal tenderness, vertebral tenderness Neurological Exam: Alert, Awake, CN II-XII Intact, Oriented x3 Psychiatric exam: Normal Affect, Normal Mood Skin Exam: Dry, Warm Discharge Exam - Head Exam Head Exam: ATRAUMATIC, NORMOCEPHALIC Discharge Plan - Discharge Medications Prescriptions: Amoxicillin/Potassium Clav [Augmentin 500 mg-125 mg] 1 tab PO Q12H #14 tab Benzocaine/Menthol [Cepacol Sore Throat] 1 nicola MT Q4H #18 nicola - Follow Up Plan Condition: IMPROVED Disposition: HOME/ ROUTINE Instructions: Diarrhea in Adolescents and Adults, Sore Throat in Adults Additional Instructions: 1. Patient is to be discharged home 2. Patient is to follow with her primary care physician within 1-2 days. 3. Patient is to take medications as directed and discuss medications with primary care physician. - Make sure to finish entire 7 day course of Augmentin, take 1 tab every 12 hours. 4. If the patient feels any new or worsening symptoms, please go directly to the nearest emergency room. 5. Thank you for allowing us to take part in your care. Take care and be well. Referrals: Jesica Cox MD [Primary Care Provider] - <Vanessa Mancia - Last Filed: 02/15/18 15:01> Provider - Provider Date of Admission: 02/12/18 14:40 Attending physician: Vanessa Mancia MD Primary care physician: Jesica Cox MD Hospital Course - Lab Results Lab Results: Micro Results 02/13/18 07:57 Stool Stool Culture - Final NO SALMONELLA, SHIGELLA OR CAMPYLOBACTER ISOLATED. Most Recent Lab Values WBC 8.3 10^3/ul (4.5-11.0) 02/14/18 08:00 RBC 4.75 10^6/uL (3.5-6.1) 02/14/18 08:00 Hgb 12.6 g/dL (12.0-16.0) 02/14/18 08:00 Hct 37.2 % (36.0-48.0) 02/14/18 08:00 MCV 78.3 fl (80.0-105.0) L 02/14/18 08:00 MCH 26.5 pg (25.0-35.0) 02/14/18 08:00 MCHC 33.9 g/dl (31.0-37.0) 02/14/18 08:00 RDW 14.3 % (11.5-14.5) 02/14/18 08:00 Plt Count 238 10^3/uL (120.0-450.0) 02/14/18 08:00 MPV 10.7 fl (7.0-11.0) 02/14/18 08:00 Gran % 64.6 % (50.0-68.0) 02/14/18 08:00 Lymph % (Auto) 27.7 % (22.0-35.0) 02/14/18 08:00 [place] % (Auto) 4.5 % (1.0-6.0) 02/14/18 08:00 Eos % (Auto) 2.8 % (1.5-5.0) 02/14/18 08:00 Baso % (Auto) 0.4 % (0.0-3.0) 02/14/18 08:00 Gran # 5.34 (1.4-6.5) 02/14/18 08:00 Lymph # (Auto) 2.3 (1.2-3.4) 02/14/18 08:00 [place] # (Auto) 0.4 (0.1-0.6) 02/14/18 08:00 Eos # (Auto) 0.2 (0.0-0.7) 02/14/18 08:00 Baso # (Auto) 0.03 K/mm3 (0.0-2.0) 02/14/18 08:00 Neutrophils % (Manual) 90 % (50.0-70.0) H 02/11/18 05:05 Band Neutrophils % 5 % (0-2) H 02/11/18 05:05 Lymphocytes % (Manual) 2 % (22.0-35.0) L 02/11/18 05:05 Monocytes % (Manual) 3 % (1.0-6.0) 02/11/18 05:05 Platelet Evaluation Normal (NORMAL) 02/11/18 05:05 PT 14.4 SECONDS (9.4-12.5) H 02/11/18 05:05 INR 1.26 (0.93-1.08) H 02/11/18 05:05 APTT 26.6 Seconds (25.1-36.5) 02/11/18 05:05 pO2 189 mm/Hg (30-55) H 02/11/18 08:00 VBG pH 7.37 (7.32-7.43) 02/11/18 08:00 VBG pCO2 41.0 (40-60) 02/11/18 08:00 VBG HCO3 23.7 mmol/l (21-28) 02/11/18 08:00 VBG Total CO2 25.0 mmol.L (22-28) 02/11/18 08:00 VBG O2 Sat (Calc) 100.7 % (40-65) H 02/11/18 08:00 VBG Base Excess -1.5 mmol/L (0.0-2.0) L 02/11/18 08:00 VBG Potassium 3.7 mmol/L (3.6-5.2) 02/11/18 08:00 Sodium 137.0 mmol/L (132-148) 02/11/18 08:00 Chloride 107.0 mmol/L (98-107) 02/11/18 08:00 Glucose 126 mg/dl (65-105) H 02/11/18 08:00 Lactate 1.6 mmol/L (0.7-2.1) 02/11/18 08:00 FiO2 21.0 % 02/11/18 08:00 Sodium 147 mmol/L (132-148) 02/14/18 08:00 Potassium 3.4 mmol/L (3.6-5.0) L 02/14/18 08:00 Chloride 110 mmol/L (98-107) H 02/14/18 08:00 Carbon Dioxide 26 mmol/L (21-33) 02/14/18 08:00 Anion Gap 14 (10-20) 02/14/18 08:00 BUN 6 mg/dL (7-21) L 02/14/18 08:00 Creatinine 0.7 mg/dl (0.7-1.2) 02/14/18 08:00 Est GFR ( Amer) > 60 02/14/18 08:00 Est GFR (Non-Af Amer) > 60 02/14/18 08:00 POC Glucose (mg/dL) 98 mg/dL (65-110) 02/14/18 11:16 Random Glucose 100 mg/dL (70-110) 02/14/18 08:00 Calcium 8.8 mg/dL (8.4-10.5) 02/14/18 08:00 Phosphorus 4.0 mg/dL (2.5-4.5) 02/14/18 08:00 Magnesium 2.0 mg/dL (1.7-2.2) 02/14/18 08:00 Total Bilirubin 0.8 mg/dL (0.2-1.3) 02/14/18 08:00 AST 41 U/L (14-36) H D 02/14/18 08:00 ALT 61 U/L (7-56) H 02/14/18 08:00 Alkaline Phosphatase 67 U/L (38-126) 02/14/18 08:00 Lactate Dehydrogenase 433 U/L (333-699) 02/11/18 05:05 Total Creatine Kinase 59 U/L (35-230) 02/11/18 05:05 Troponin I < 0.01 ng/mL 02/11/18 05:05 Total Protein 7.4 g/dL (5.8-8.3) 02/14/18 08:00 Albumin 3.8 g/dL (3.0-4.8) 02/14/18 08:00 Globulin 3.7 gm/dL 02/14/18 08:00 Albumin/Globulin Ratio 1.0 (1.1-1.8) L 02/14/18 08:00 Venous Blood Potassium 3.7 mmol/L (3.6-5.2) 02/11/18 08:00 Urine Color Yellow (YELLOW) 02/11/18 06:54 Urine Appearance Clear (CLEAR) 02/11/18 06:54 Urine pH 6.0 (4.7-8.0) 02/11/18 06:54 Ur Specific [place] 1.010 (1.005-1.035) 02/11/18 06:54 Urine Protein Trace mg/dL (<30 mg/dL) H 02/11/18 06:54 Urine Glucose (UA) Negative mg/dL (NEGATIVE) 02/11/18 06:54 Urine Ketones Negative mg/dL (NEGATIVE) 02/11/18 06:54 Urine Blood Negative (NEGATIVE) 02/11/18 06:54 Urine Nitrate Negative (NEGATIVE) 02/11/18 06:54 Urine Bilirubin Negative (NEGATIVE) 02/11/18 06:54 Urine Urobilinogen 1.0 E.U./dL (<1 E.U./dL) H 02/11/18 06:54 Ur Leukocyte Esterase Negative Renzo/uL (NEGATIVE) 02/11/18 06:54 Urine RBC 0 - 2 /hpf (0-2) 02/11/18 06:54 Urine WBC 0 - 2 /hpf (0-6) 02/11/18 06:54 Ur Epithelial Cells 4 - 5 /hpf (0-5) 02/11/18 06:54 Urine Bacteria Few (NEG) 02/11/18 06:54 Stool Leukocytes, Qual Negative (NEGATIVE) 02/13/18 07:57 EBV Capsid Ag IgG Ab >750.00 U/mL H 02/12/18 07:00 EBV Capsid Ag IgM Ab <36.00 U/mL 02/12/18 07:00 Monoscreen Negative (Negative) 02/13/18 13:00 HIV 1&2 Ag/Ab, 4th Gen Nonreactive (Nonreactive) 02/11/18 11:49 Influenza Typ A,B (EIA) Negative for flu a/b (NEGATIVE) 02/11/18 13:32 Grp A Beta Strep Ag Positive (NEGATIVE) H 02/11/18 06:54 Attending/Attestation - Attestation I have personally seen and examined this patient.: Yes I have fully participated in the care of the patient.: Yes I have reviewed all pertinent clinical information, including history, physical exam and plan: Yes Notes (Text): 02/15/18 14:58 attending note; patient seen and examined with resident. Patient is a 47 year old female with a past medical history of hypertension presenting to the emergency room with a chief complaint of body aches, subjective fevers, chills, sore throat, cough and abdominal pain. found to have strep pharyngitis/tonsillitis. Tonsills shows mild exudatives. Throat pain improved. Marcela-[place] virus IgG is positive. patient also had nonspecific abdominal discomfort. CT abdomen and pelvis showed diffuse colitis. Started on IV Zosyn. HIV is negative. Patient will be discharged home with by mouth Augmentin. history of asthma; continue DuoNeb when necessary. leukocytosis/fever; sepsis protocol followed. WBC count is normal. CT head is negative. CT neck showed no retropharyngeal abscess. Case discussed with ID in detail. monitor clinically. colitis; GI evaluation appreciated. Needs outpatient follow up. hypertension; started on metoprolol on Cozaar. Upon discharge The patient will follow-up with PMD Dr. Cox. 02/15/18 15:00
--- NOTE | 2018-02-14 16:03 | PN ---
DATE: 02/14/2018 SUBJECTIVE: The patient is in bed, was seen earlier this morning in 570, doing better. Able to swallow. PHYSICAL EXAMINATION: VITAL SIGNS: Temperature is 98, blood pressure is 120/50, respiratory rate 20, heart rate of 59. HEENT: Examination of HEENT is unremarkable. NECK: Supple. LUNGS: Have decreased breath sounds. HEART: Normal S1, S2. ABDOMEN: Soft. LABORATORY DATA: Laboratory examination reveals a white count of 8.3, hemoglobin of 12, platelets of 238. Coagulation is noted and chemistries reveals a BUN of 6, creatinine of 0.7. Urinalysis is noted. The patients group A beta Strep antigen is positive and Marcela-[place] virus IgG is positive, IgM is negative. [place] screen is negative. HIV is negative. ASSESSMENT AND PLAN: A 47-year-old female, early this morning in room 570 with sepsis with acute tonsillar pharyngitis secondary to Streptococcus, hypertension, pneumonia, cholecystectomy, hysterectomy, on Zosyn, switched to p.o. Augmentin. Case discussed with Dr. Mancia and her residents recommend a human immunodeficiency virus PCR, at least repeat the human immunodeficiency virus test in a few weeks, although the fourth generation test is nonreactive. Acute human immunodeficiency virus can also present with pharyngitis. In this case, the patient has Streptococcus pharyngitis. Dion Larson MD
== END 2018-02-14 14:40 | disposition home or self-care (01) | DRG 901 ==
LOC: ED 04:30 → ERH 09:22 → 5RSO 11:18 → OBSVTOIN 02-12 14:40
PROVIDERS: ADMIT Internal Medicine; ATTEND Internal Medicine
DX: A40.9 Streptococcal sepsis, unspecified (principal); J02.0 Streptococcal pharyngitis; B27.00 Gammaherpesviral mononucleosis without complication; E11.9 Type 2 diabetes mellitus without complications; E66.9 Obesity, unspecified; Z68.33 Body mass index [BMI] 33.0-33.9, adult; I10 Essential (primary) hypertension; J45.909 Unspecified asthma, uncomplicated; K29.70 Gastritis, unspecified, without bleeding; K52.9 Noninfective gastroenteritis and colitis, unspecified; K76.0 Fatty (change of) liver, not elsewhere classified; Z90.49 Acquired absence of other specified parts of digestive tract; Z90.710 Acquired absence of both cervix and uterus; Z87.01 Personal history of pneumonia (recurrent); Z80.9 Family history of malignant neoplasm, unspecified

== ENCOUNTER 2018-07-15 12:05 | Emergency (ER) | payer MEDICAID ==
[2018-07-15 12:06] VITALS: BMI 33.3
--- NOTE | 2018-07-15 12:47 | ED PDOC ---
Arrival/HPI - General Time Seen by Provider: 07/15/18 12:26 Historian: Patient - History of Present Illness Narrative History of Present Illness (Text): 07/15/18 12:33 Patient is a 47 year old female whose past medical history includes hernia, hypertension, gastritis, arthritis, colitis, sepsis, and hysterectomy, who presents to the Emergency Department with a family member for dizziness and generalized weakness. Patient is primarily Sami speaking and her [id number] is translating, per patient's request. 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 Patient also reports having intermittent abdominal pain which started 06:00 today. Of note she is also experiencing nausea and headaches. She admits to being constipated the past 3-4 days, and noticed blood in the toilet today when she tried to have a bowel movement. Patient denies experiencing similar symptoms in the past. Of note per patient she had a hysterectomy due to fibroids. Patient denies fevers, chills, cough, shortness of breath, chest pain, dyspnea on exertion, vomiting, diarrhea, neck/back pain, urinary changes, or any other complaint. Time/Duration: 1-3 hours Symptom Onset: Sudden Symptom Course: Unchanged Context: Work Past Medical History - Provider Review Nursing Documentation Reviewed: Yes - Infectious Disease Hx of Infectious Diseases: None - Tetanus Immunization Tetanus Immunization: Unknown - Cardiac Hx Cardiac Disorders: Yes Hx Hypertension: Yes - Pulmonary Hx Respiratory Disorders: Yes Hx Pneumonia: Yes - Neurological Hx Neurological Disorder: Yes Hx Dizziness: Yes (SYNCOPE) - HEENT Hx HEENT Disorder: Yes (PHARYNGITIS 02-11-18) - Renal Hx Renal Disorder: No - Endocrine/Metabolic Hx Endocrine Disorders: Yes Hx Diabetes Mellitus Type 2: Yes - Hematological/Oncological Hx Blood Disorders: No - Integumentary Hx Dermatological Disorder: No - Musculoskeletal/Rheumatological Hx Musculoskeletal Disorders: No Hx Falls: No - Gastrointestinal Hx Gastrointestinal Disorders: Yes (H/O LIPOSUCTION,FATTY LIVER) Other/Comment: COLITIS - Genitourinary/Gynecological Hx Genitourinary Disorders: Yes (BREAST REDUCTION,HYSTERECTOMY,C/S) - Psychiatric Hx Psychophysiologic Disorder: No Hx Depression: No Hx Substance Use: No - Surgical History Hx Cholecystectomy: Yes Hx Hysterectomy: Yes - Anesthesia Hx Anesthesia: Yes Hx Anesthesia Reactions: No Hx Malignant Hyperthermia: No - Suicidal Assessment Feels Threatened In Home Enviroment: No Family/Social History - Physician Review Nursing Documentation Reviewed: Yes Family/Social History: No Known Family HX Smoking Status: Never Smoked Hx Alcohol Use: No Hx Substance Use: No Hx Substance Use Treatment: No Allergies/Home Meds Allergies/Adverse Reactions: Allergies No Known Allergies Allergy (Verified 02/11/18 12:36) Home Medications: Home Meds Medication Instructions Recorded Confirmed Metoprolol Succinate XL [Toprol XL] 25 mg PO DAILY 02/11/18 02/11/18 Omeprazole Magnesium [Prilosec Otc] 40 mg PO DAILY 02/11/18 02/11/18 Pravastatin Sodium [Pravachol] 20 mg PO DAILY 02/11/18 02/11/18 Zolpidem [Ambien] 10 mg PO PRN PRN 02/11/18 02/11/18 Review of Systems - Physician Review All systems were reviewed & negative as marked: Yes - Review of Systems Constitutional: Other (generalized weakness). absent: Fevers, Night Sweats Respiratory: absent: SOB, Cough Cardiovascular: absent: Chest Pain, NARAYANAN Gastrointestinal: Abdominal Pain, Constipation, Nausea. absent: Vomiting Genitourinary Female: absent: Urine Output Changes Musculoskeletal: absent: Back Pain, Neck Pain Neurological: Headache, Dizziness Physical Exam Vital Signs Reviewed: Yes Temperature: Afebrile Blood Pressure: Normal Pulse: Regular Respiratory Rate: Normal Appearance: Positive for: Well-Appearing Mental Status: Positive for: Alert and Oriented X 3 - Systems Exam Head: Present: Atraumatic, Normocephalic Pupils: Present: PERRL Extroacular Muscles: Present: EOMI Conjunctiva: Present: Normal Mouth: Present: Moist Mucous Membranes Neck: Present: Normal Range of Motion Respiratory/Chest: Present: Clear to Auscultation, Good Air Exchange. No: Respiratory Distress, Accessory Muscle Use Cardiovascular: Present: Regular Rate and Rhythm, Normal S1, S2. No: Murmurs Abdomen: Present: Tenderness (Lower left and right abdominal tenderness. Left mid abdominal tenderness.), Normal Bowel Sounds. No: Distention, Peritoneal Signs, Rebound, Guarding Rectal: Present: Other (Auricular Acupuncturist:Angle HANCOCK). No: Gross Blood, Hemorrhoids (external) Back: Present: Normal Inspection Upper Extremity: Present: Normal Inspection. No: Cyanosis, Edema Lower Extremity: Present: Normal Inspection. No: Edema Neurological: Present: GCS=15, CN II-XII Intact, Speech Normal. No: Other (nystagmus) Skin: Present: Warm, Dry, Normal Color. No: Rashes Psychiatric: Present: Alert, Oriented x 3, Normal Insight, Normal Concentration Medical Decision Making ED Course and Treatment: 07/15/18 12:33 Impression: 47 year old female who is complaining of generalized weakness, dizziness, nausea, and abdominal pain, which started earlier today. Plan: -- EKG per protocol -- Labs -- Blood work -- Abdominal X-ray -- Urinalysis -- IV fluids -- Reassess and disposition Prior Visits: Notes and results from previous visits were reviewed. Patient has a history of colitis and sepsis. Progress Notes: 07/15/18 15:40 Reevaluation: On reevaluation the patient feels better and is in no acute distress. I have discussed the results and plan with the patient, who expresses understanding. Patient given the opportunity to ask question, all questions were answered and there is agreement with the plan to discharge the patient home. Patient is stable for discharge. Patient was instructed to follow up with physician/clinic in 1-2 days or return if symptoms persist/worsen or new concerning symptoms arise. Patient will be given information about abdominal pain, dizziness, and constipation. Patient requesting a meal. 07/15/18 16:27 Patient tolerated meal and fluids PO. - Lab Interpretations I have reviewed the lab results: Yes - RAD Interpretation Narrative RAD Interpretations (Text): 07/15/18 15:14 Chest X-ray: Dictator : Cole Palma MD IMPRESSION: No active disease. Trouble Lineman: Radiologist - EKG Interpretation EKG Interpretation (Text): 07/15/18 12:26 EKG shows NSR at 63 BPM with normal intervals and LAD. No ST elevations. Nonspecific T wave changes, flattening, and poor R wave progression. Interpreted by me. Interpreted by ED Physician: Yes Type: 12 lead EKG - Scribe Statement The provider has reviewed the documentation as recorded by the Scribe Rodrigue Santana Provider Scribe Attestation: All medical record entries made by the Scribe were at my direction and personally dictated by me. I have reviewed the chart and agree that the record accurately reflects my personal performance of the history, physical exam, medical decision making, and the department course for this patient. I have also personally directed, reviewed, and agree with the discharge instructions and disposition. Disposition/Present on Arrival - Present on Arrival Any Indicators Present on Arrival: Yes History of DVT/PE: No History of Uncontrolled Diabetes: No Urinary Catheter: No History of Decub. Ulcer: No History Surgical Site Infection Following: None - Disposition Have Diagnosis and Disposition been Completed?: Yes Diagnosis: Abdominal pain, Constipation, Dizziness, Generalized weakness Disposition: HOME/ ROUTINE Disposition Time: 15:40 Patient Plan: Discharge Patient Problems: Current Active Problems Problem Status Onset Abdominal pain Acute Constipation Acute Dizziness Acute Generalized weakness Acute Condition: STABLE Discharge Instructions (ExitCare): Constipation in Adults, Acute Abdomen (Belly Pain), Adult (DC), Generalized Weakness (DC), Dizziness, Nonvertigo, (DC) Print Language: AZERBAIJANI Additional Instructions: JIMBO SINGH, thank you for letting us take care of you today. Your provider was Gena Michael MD and you were treated for ABD PAIN. The emergency medical care you received today was directed at your acute symptoms. If you were prescribed any medication, please fill it and take as directed. It may take several days for your symptoms to resolve. Return to the Emergency Department if your symptoms worsen, do not improve, or if you have any other problems. Please contact your doctor or call one of the physicians/clinics you have been referred to that are listed on the Patient Visit Information form that is included in your discharge packet. Bring any paperwork you were given at discharge with you along with any medications you are taking to your follow up visit. Our treatment cannot replace ongoing medical care by a primary care provider outside of the emergency department. Thank you for allowing the [facility] [employer] team to be part of your care today. I Referrals: Jesica Cox MD [Primary Care Provider] - Follow up with primary
[2018-07-15] MEDS ORDERED: Sodium Chloride 0.9% 1,000 ML IV STA (12:58)
[2018-07-15 12:59] VITALS: RESP 18; TEMP 98.6
[2018-07-15 13:40] LABS: BASO # 0.01 K/mm3 (0.0-2.0); BASO % 0.1 % (0.0-3.0); EOS # 0.1 (0.0-0.7); EOS % 0.5 % (1.5-5.0); GRAN # 7.1 (1.4-6.5); GRAN % 73.2 % (50.0-68.0); HEMOGLOBIN 14.5 g/dL (12.0-16.0); MEAN CELL VOLUME 80.2 fl (80.0-105.0); MEAN CORPUSCULAR HEMOGLOBIN 27.6 pg (25.0-35.0); MEAN CORPUSCULAR HGB CONC 34.4 g/dl (31.0-37.0); MEAN PLATELET VOLUME 10.7 fl (7.0-11.0); MONO # 0.5 (0.1-0.6); MONO % 5.2 % (1.0-6.0); RBC 5.26 10^6/uL (3.5-6.1); RED CELL DISTRIBUTION WIDTH 13.8 % (11.5-14.5); URINE BILIRUBIN NEGATIVE (NEGATIVE); URINE BLOOD NEGATIVE (NEGATIVE); URINE GLUCOSE (UA) NEGATIVE (NEGATIVE); URINE LEUKOCYTE ESTERASE NEGATIVE Leu/uL (NEGATIVE); URINE PROTEIN NEGATIVE mg/dL (<30 mg/dL); URINE UROBILINOGEN 0.2 E.U./dL (<1 E.U./dL); WHITE BLOOD COUNT 9.7 10^3/ul (4.5-11.0)
[2018-07-15 13:43] LABS: URINE APPEARANCE CLEAR (CLEAR); URINE COLOR YELLOW (YELLOW)
[2018-07-15 13:48] LABS: ALB/GLOB RATIO 1.1 (1.1-1.8); ALBUMIN 4.1 g/dL (3.0-4.8); ALT/SGPT 33 U/L (7-56); AST/SGOT 25 U/L (14-36); BLOOD UREA NITROGEN 5 mg/dL (7-21); CALCIUM 9.3 mg/dL (8.4-10.5); GFR NON-AFRICAN AMERICAN > 60; LIPASE 95 U/L (23-300)
--- NOTE | 2018-07-15 15:08 | CARD ---
APPROVED REPORT Date of service: 07/15/2018 EKG Measurement Heart [id number] <Conclusion> Normal sinus rhythm Left axis deviation Otherwise normal ECG
--- NOTE | 2018-07-15 15:14 | RAD ---
Date of service: 07/15/2018 HISTORY: abd pain COMPARISON: No prior. FINDINGS: BOWEL: Normal. No obstruction. No free air. BONES: Normal. OTHER FINDINGS: None. IMPRESSION: No active disease.
[2018-07-15 17:13] VITALS: BP 155/77; PULSE 63; O2SAT 100
== END 2018-07-15 17:16 | disposition home or self-care (01) ==
LOC: ED 12:05
DX: R53.1 Weakness (principal); R42 Dizziness and giddiness; R10.9 Unspecified abdominal pain; K59.00 Constipation, unspecified; I10 Essential (primary) hypertension; E11.9 Type 2 diabetes mellitus without complications
CPT/HCPCS: 74019; 80053; 81003; 83690; 83735; 85025; 93005; 99283; J7030

== ENCOUNTER 2018-10-18 16:05 | Emergency (ER) | payer MEDICAID ==
[2018-10-18 16:11] VITALS: BMI 32.5
[2018-10-18] MEDS ORDERED: Alum-Mag Hydrox-Simethicone Susp (30 mL) PO STA (16:46)
[2018-10-18] MEDS ORDERED: Sodium Chloride 0.9% 1,000 ML IV STA (16:46)
--- NOTE | 2018-10-18 16:50 | ED PDOC ---
Arrival/HPI - General Chief Complaint: Abdominal Pain Time Seen by Provider: 10/18/18 16:21 Historian: Patient - History of Present Illness Narrative History of Present Illness (Text): 10/18/18 16:49 A 48 year old female, whose past medical history includes hypertension, s/p cholecystectomy, presents to the emergency department complaining of abdominal pain since last night. Patient reports pain is constant epigastric, non rad iating with associated nausea and vomiting. Patient also notes subjective fever. Patient denies any bowel movement changes, dysuria, shortness of breath, or other complaints. PMD: Jesica Jin Time/Duration: Other (last night) Symptom Onset: Gradual Symptom Course: Unchanged Activities at Onset: Light Context: Home Past Medical History - Infectious Disease Hx of Infectious Diseases: None - Tetanus Immunization Tetanus Immunization: Unknown - Cardiac Hx Cardiac Disorders: Yes Hx Hypertension: Yes - Pulmonary Hx Respiratory Disorders: Yes Hx Pneumonia: Yes - Neurological Hx Neurological Disorder: Yes Hx Dizziness: Yes (SYNCOPE) - HEENT Hx HEENT Disorder: Yes (PHARYNGITIS 02-11-18) - Renal Hx Renal Disorder: No - Endocrine/Metabolic Hx Endocrine Disorders: Yes Hx Diabetes Mellitus Type 2: Yes - Hematological/Oncological Hx Blood Disorders: No - Integumentary Hx Dermatological Disorder: No - Musculoskeletal/Rheumatological Hx Musculoskeletal Disorders: No - Gastrointestinal Hx Gastrointestinal Disorders: Yes (H/O LIPOSUCTION,FATTY LIVER) Other/Comment: COLITIS - Genitourinary/Gynecological Hx Genitourinary Disorders: Yes (BREAST REDUCTION,HYSTERECTOMY,C/S) - Psychiatric Hx Psychophysiologic Disorder: No Hx Depression: No Hx Substance Use: No - Surgical History Hx Cholecystectomy: Yes Hx Hysterectomy: Yes - Anesthesia Hx Anesthesia: Yes Hx Anesthesia Reactions: No Hx Malignant Hyperthermia: No - Suicidal Assessment Feels Threatened In Home Enviroment: No Family/Social History Family/Social History: No Known Family HX Smoking Status: Never Smoked Hx Alcohol Use: No Hx Substance Use: No Hx Substance Use Treatment: No Allergies/Home Meds Allergies/Adverse Reactions: Allergies No Known Allergies Allergy (Verified 10/18/18 16:11) Home Medications: Home Meds Medication Instructions Recorded Confirmed Metoprolol Succinate XL [Toprol XL] 25 mg PO DAILY 02/11/18 10/18/18 amLODIPine [Norvasc] 10 mg PO DAILY 10/18/18 10/18/18 Review of Systems - Physician Review All systems were reviewed & negative as marked: Yes - Review of Systems Respiratory: absent: SOB Genitourinary Female: absent: Dysuria, Other (no bowel movement changes) Physical Exam - Physical Exam Narrative Physical Exam (Text): 10/18/18 16:49 Constitutional: No acute distress. Head: Normocephalic. Atraumatic. Eyes: PERRL. ENT: Moist mucous membranes. Neck: Supple. Cardiovascular: Regular rate. Chest: No tenderness. Respiratory: Clear to auscultation bilaterally. GI: Epigastric tenderness with guarding. Back: No CVA tenderness. Musculoskeletal: No tenderness or swelling of extremities. Skin: No rash. Neurologic: Alert, no focal deficit. Vital Signs Reviewed: Yes Vital Signs Temp Pulse Resp BP Pulse Ox 10/18/18 16:14 99.7 F H 102 H 18 117/81 97 Temperature: Febrile Blood Pressure: Normal Pulse: Tachycardic Respiratory Rate: Normal Appearance: Positive for: Non-Toxic Medical Decision Making ED Course and Treatment: 10/18/18 16:50 Impression: 48 year old presenting to the emergency room complaining of abdominal pain. Plan: -- CT of abdomen and pelvis -- Labs -- CBC -- Maalox -- Pepcid -- Zofran -- IV fluids -- HCG Urine -- Urinalysis -- Reassess and disposition Prior Visits: Notes and results from previous visits were reviewed. Progress Notes: 10/18/18 18:51 IMPRESSION: Findings consistent with ascending and transverse colitis. Mildly dilated small bowel loops at the left upper abdomen demonstrate mild wall thickening suspicious for enteritis. Mild urinary bladder wall thickening. Additional findings have not significantly changed since the prior exams as discussed above. - RAD Interpretation Radiology Orders: 10/18/18 16:47 ABD & PELVIS IV CONTRAST ONLY [CT] Stat - Medication Orders Current Medication Orders: Al Hydrox/Mg Hydrox/Simethicone (Maalox Plus 30 Ml) 30 ml PO STAT STA Stop: 10/18/18 16:47 Famotidine (Pepcid) 20 mg IVP STAT STA Stop: 10/18/18 16:47 Sodium Chloride (Sodium Chloride 0.9%) 1,000 mls @ 999 mls/hr IV .Q1H1M STA Stop: 10/18/18 17:46 Ondansetron HCl (Zofran Inj) 8 mg IVP STAT STA Stop: 10/18/18 16:47 - Scribe Statement The provider has reviewed the documentation as recorded by the Lin Hale All medical record entries made by the Scribe were at my direction and personally dictated by me. I have reviewed the chart and agree that the record accurately reflects my personal performance of the history, physical exam, medical decision making, and the department course for this patient. I have also personally directed, reviewed, and agree with the discharge instructions and disposition. Disposition/Present on Arrival - Present on Arrival Any Indicators Present on Arrival: No History of DVT/PE: No History of Uncontrolled Diabetes: No Urinary Catheter: No History of Decub. Ulcer: No History Surgical Site Infection Following: None - Disposition Have Diagnosis and Disposition been Completed?: Yes Diagnosis: Enteritis Disposition: HOME/ ROUTINE Disposition Time: 18:52 Patient Plan: Discharge Patient Problems: Current Active Problems Problem Status Onset Enteritis Acute Condition: STABLE Discharge Instructions (ExitCare): Colitis (DC) Prescriptions: levoFLOXacin [Levaquin] 1 tab PO DAILY #10 tab Metronidazole [Flagyl] 500 mg PO Q8 #30 tab Ondansetron ODT [Zofran ODT] 4 mg PO Q8 #12 odt Referrals: Jesica Cox MD [Primary Care Provider] - Follow up with primary Forms: [employer] (Grenadian)
[2018-10-18] MEDS ORDERED: Iohexol 350 MG/100 ML VIAL ONE (17:19)
[2018-10-18 17:42] LABS: BASO # 0.01 K/mm3 (0.0-2.0); BASO % 0.1 % (0.0-3.0); EOS % 0.2 % (1.5-5.0); GRAN # 11.43 (1.4-6.5); HEMOGLOBIN 15.4 g/dL (12.0-16.0); LYMPH % 7.8 % (22.0-35.0); MEAN CELL VOLUME 78.4 fl (80.0-105.0); MEAN CORPUSCULAR HEMOGLOBIN 27.3 pg (25.0-35.0); MEAN CORPUSCULAR HGB CONC 34.8 g/dl (31.0-37.0); MONO # 0.5 (0.1-0.6); MONO % 3.9 % (1.0-6.0); RBC 5.65 10^6/uL (3.5-6.1); RED CELL DISTRIBUTION WIDTH 14.4 % (11.5-14.5); URINE BILIRUBIN NEGATIVE (NEGATIVE); URINE BLOOD NEGATIVE (NEGATIVE); URINE GLUCOSE (UA) NEGATIVE (NEGATIVE); URINE LEUKOCYTE ESTERASE NEGATIVE Leu/uL (NEGATIVE); URINE PROTEIN NEGATIVE mg/dL (<30 mg/dL); URINE UROBILINOGEN 0.2 E.U./dL (<1 E.U./dL)
[2018-10-18 17:43] LABS: URINE APPEARANCE CLEAR (CLEAR); URINE COLOR YELLOW (YELLOW)
[2018-10-18 17:44] LABS: HCG,QUALITATIVE URINE NEGATIVE (NEGATIVE)
[2018-10-18 17:56] LABS: ALB/GLOB RATIO 1.2 (1.1-1.8); ALBUMIN 4.5 g/dL (3.0-4.8); ALT/SGPT 58 U/L (7-56); AST/SGOT 38 U/L (14-36); BLOOD UREA NITROGEN 13 mg/dL (7-21); CALCIUM 9.8 mg/dL (8.4-10.5); GFR NON-AFRICAN AMERICAN > 60; LIPASE 87 U/L (23-300)
--- NOTE | 2018-10-18 18:50 | CT ---
Date of service: 10/18/2018 PROCEDURE: CT Abdomen and Pelvis with contrast HISTORY: abd pain, vomiting COMPARISON: Comparison is made to the previous study dated 02/11/2018 TECHNIQUE: Contrast dose: 100 mL of Omnipaque 350 intravenously. Axial and reformatted coronal and sagittal CT images of the abdomen and pelvis were obtained after IV contrast administration. Radiation dose: Total exam DLP = 1019.09 mGy-cm. This CT exam was performed using one or more of the following dose reduction techniques: Automated exposure control, adjustment of the mA and/or kV according to patient size, and/or use of iterative reconstruction technique. FINDINGS: LOWER THORAX: No evidence of acute pathology at the lung bases. LIVER: Hepatomegaly with findings suggestive of moderate hepatic steatosis. GALLBLADDER AND BILE DUCTS: Status post cholecystectomy. Dilated common bile duct likely due to prior cholecystectomy. PANCREAS: Unremarkable. No gross lesion or ductal dilatation. SPLEEN: Unremarkable. ADRENALS: Unremarkable. No mass. KIDNEYS AND URETERS: Unremarkable. No hydronephrosis. No solid mass. VASCULATURE: Unremarkable. No aortic aneurysm. No aortic atherosclerotic calcification or mural plaque present. BOWEL: There is moderate wall thickening of the ascending and transverse colon consistent with right-sided colitis. No evidence of high-grade bowel obstruction. Mildly dilated small bowel loops at the left upper abdomen suspicious for enteritis. APPENDIX: There is no evidence of appendicitis P PERITONEUM: Unremarkable. No free fluid. No free air. LYMPH NODES: Unremarkable. No enlarged lymph nodes. BLADDER: The urinary bladder demonstrate [id number] wall thickening. REPRODUCTIVE: The uterus and adnexa are unchanged since the previous exam. BONES: No acute fracture. OTHER FINDINGS: None. IMPRESSION: Findings consistent with ascending and transverse colitis. Mildly dilated small bowel loops at the left upper abdomen demonstrate mild wall thickening suspicious for enteritis. Mild urinary bladder wall thickening. Additional findings have not significantly changed since the prior exams as discussed above.
[2018-10-18 19:02] VITALS: BP 125/75; PULSE 72; RESP 16; TEMP 99.6; O2SAT 100
--- NOTE | 2018-10-19 08:02 | CARD ---
APPROVED REPORT Date of service: 10/18/2018 EKG Measurement Heart [id number] <Conclusion> Normal sinus rhythm Poor R wave progression Nonspecific T wave abnormality Abnormal ECG
== END 2018-10-18 19:24 | disposition home or self-care (01) ==
LOC: ED 16:05
DX: K52.9 Noninfective gastroenteritis and colitis, unspecified (principal); I10 Essential (primary) hypertension; E11.9 Type 2 diabetes mellitus without complications; Z90.49 Acquired absence of other specified parts of digestive tract
CPT/HCPCS: 74177; 80053; 81003; 81025; 83690; 84703; 85025; 93005; 96361; 96374; 96375; 99284; J2405; J7030; Q9967

== ENCOUNTER 2018-10-31 16:28 | Inpatient (IN) | payer MEDICAID ==
[2018-10-31] MEDS ORDERED: Sodium Chloride 0.9% 1,000 ML IV STA (16:57)
--- NOTE | 2018-10-31 17:35 | ED PDOC ---
Arrival/HPI - General Chief Complaint: Abdominal Pain Time Seen by Provider: 10/31/18 16:48 Historian: Patient - History of Present Illness Narrative History of Present Illness (Text): 10/31/18 17:32 48-year-old female presents today with worsening abdominal pain over the past 2 weeks. Patient describes the pain as sharp and constant radiating across the upper abdomen. She is also complaining of mid upper back pain. Patient states she has been having this pain for the past 2 weeks since she completed the antibiotics that were prescribed to her without any improvement. Patient denies chest pain or shortness of breath. Complaining of nausea and vomiting states she had one episode of diarrhea. She denies fevers or chills. Patient with a history of cholecystectomy. Patient is also complaining of dysuria. No headac hes. Patient states she is occasionally feeling dizzy. No other complaints Time/Duration: > week Symptom Onset: Gradual Symptom Course: Worsening Severity Level: Moderate Past Medical History - Provider Review Nursing Documentation Reviewed: Yes - Travel History Have you recently traveled outside [place] w/in the past 3 mons?: No - Infectious Disease Hx of Infectious Diseases: None - Tetanus Immunization Tetanus Immunization: Unknown - Reproductive Currently : No - Cardiac Hx Cardiac Disorders: Yes Hx Hypertension: Yes - Pulmonary Hx Respiratory Disorders: Yes Hx Pneumonia: Yes - Neurological Hx Neurological Disorder: Yes Hx Dizziness: Yes (SYNCOPE) - HEENT Hx HEENT Disorder: Yes (PHARYNGITIS 02-11-18) - Renal Hx Renal Disorder: No - Endocrine/Metabolic Hx Endocrine Disorders: Yes Hx Diabetes Mellitus Type 2: Yes - Hematological/Oncological Hx Blood Disorders: No - Integumentary Hx Dermatological Disorder: No - Musculoskeletal/Rheumatological Hx Musculoskeletal Disorders: No - Gastrointestinal Hx Gastrointestinal Disorders: Yes (H/O LIPOSUCTION,FATTY LIVER) Other/Comment: COLITIS - Genitourinary/Gynecological Hx Genitourinary Disorders: Yes (BREAST REDUCTION,HYSTERECTOMY,C/S) - Psychiatric Hx Psychophysiologic Disorder: No Hx Depression: No Hx Substance Use: No - Surgical History Hx Cholecystectomy: Yes Hx Hysterectomy: Yes - Anesthesia Hx Anesthesia: Yes Hx Anesthesia Reactions: No Hx Malignant Hyperthermia: No - Suicidal Assessment Feels Threatened In Home Enviroment: No Family/Social History - Physician Review Nursing Documentation Reviewed: Yes Family/Social History: Unknown Family HX Smoking Status: Never Smoked Hx Alcohol Use: No Hx Substance Use: No Hx Substance Use Treatment: No Allergies/Home Meds Allergies/Adverse Reactions: Allergies No Known Allergies Allergy (Verified 10/18/18 16:11) Home Medications: Home Meds Medication Instructions Recorded Confirmed Metoprolol Succinate XL [Toprol XL] 25 mg PO DAILY 02/11/18 10/18/18 amLODIPine [Norvasc] 10 mg PO DAILY 10/18/18 10/18/18 Review of Systems - Review of Systems Constitutional: absent: Fatigue ENT: absent: Sore Throat Respiratory: absent: SOB Cardiovascular: absent: Chest Pain Gastrointestinal: Abdominal Pain, Diarrhea, Nausea, Vomiting. absent: Constipation Genitourinary Female: Dysuria. absent: Frequency, Hematuria, Vaginal Discharge Musculoskeletal: Back Pain. absent: Arthralgias, Neck Pain Skin: absent: Rash, Pruritis Neurological: absent: Headache, Dizziness Psychiatric: absent: Anxiety, Depression Physical Exam Vital Signs Reviewed: Yes Vital Signs Temp Pulse Resp BP Pulse Ox 10/31/18 16:28 98.5 F 83 18 138/93 H 98 Temperature: Afebrile Blood Pressure: Hypertensive Pulse: Regular Respiratory Rate: Normal Appearance: Positive for: Well-Appearing, Non-Toxic, Comfortable Pain Distress: None Mental Status: Positive for: Alert and Oriented X 3 - Systems Exam Head: Present: Atraumatic Mouth: Present: Moist Mucous Membranes Neck: Present: Normal Range of Motion Respiratory/Chest: Present: Clear to Auscultation, Good Air Exchange. No: Respiratory Distress, Accessory Muscle Use Cardiovascular: Present: Regular Rate and Rhythm, Normal S1, S2. No: Murmurs Abdomen: No: Tenderness, Distention, Peritoneal Signs, Rebound, Guarding Back: Present: Normal Inspection. No: CVA Tenderness, Midline Tenderness, Paraspinal Tenderness Upper Extremity: Present: Normal Inspection Lower Extremity: Present: Normal Inspection Neurological: Present: GCS=15, Speech Normal Skin: Present: Warm, Dry, Normal Color. No: Rashes Psychiatric: Present: Alert, Oriented x 3 Medical Decision Making ED Course and Treatment: 10/31/18 17:47 Patient is nontoxic well appearing with stable vital signs presenting with severe worsening upper abdominal pain CBC: wbc; 13.0 CMP: glucose; 111 Lipase: wnl Urinalysis: WNL ekg: NORMAL SINUS RHYTHM AT [address] ELEVATIONS qtc 452 Ultrasound: FINDINGS: LIVER: Measures 15.1 x 11.1 x 18.2 cm. Nodular hepatic contour may be seen in the setting of cirrhosis. Echogenic liver may be seen in setting of hepatic paren chymal disease or fatty infiltration. No focal hepatic mass identified. The main portal vein appears patent with normal directional flow. No intrahepatic bile duct dilatation. GALLBLADDER: Cholecystectomy. COMMON BILE DUCT: Measures 5 mm. PANCREAS: Not well visualized. RIGHT KIDNEY: Measures 11.0 x 5.2 x 4.4 cm. No obstructing calculus or hydronephrosis identified. LEFT KIDNEY: Measures 10.7 x 5.5 x 4.5 cm. No obstructing calculus or hydronephrosis identified. SPLEEN: Measures approximately 9.5 cm. AORTA: Limited views appear unremarkable. IVC: Limited views appear unremarkable. OTHER FINDINGS: None. IMPRESSION: Echogenic liver may be seen in setting of hepatic parenchymal disease or fatty infiltration. Nodular hepatic contour may be seen in the setting of cirrhosis. Cholecystectomy. CAT scan:FINDINGS: LOWER THORAX: No visible consolidation, pleural effusion, or pneumothorax. LIVER: Hepatomegaly. Hypoattenuation of the liver compatible with hepatic steatosis. GALLBLADDER AND BILE DUCTS: Cholecystectomy. Common bile duct measures approximately 7 mm in diameter. PANCREAS: Unremarkable. SPLEEN: Unremarkable. ADRENALS: Unremarkable. KIDNEYS AND URETERS: The kidneys enhance symmetrically. No hydronephrosis or obstructing calculus identified. VASCULATURE: No aortic aneurysm. Minimal atherosclerotic calcifications of the aorta. BOWEL: Stomach is nondistended. Lack of oral contrast limits evaluation for bowel pathology. Bowel loops appear within normal limits of caliber without evidence of obstruction. There is moderate wall thickening of the ascending and transverse colon consistent with right-sided colitis. Mildly thick-walled small bowel loops may reflect enteritis. APPENDIX: No secondary signs of acute appendicitis. PERITONEUM: No significant free fluid. No definite free air. LYMPH NODES: No bulky adenopathy identified. BLADDER: Mildly thick-walled urinary bladder; recommend correlation with urinalysis. REPRODUCTIVE: Unremarkable. BONES: No acute osseous abnormality is detected. OTHER FINDINGS: None. IMPRESSION: Moderate wall thickening of the right colon consistent with colitis. Small bowel wall thickening may be related to enteritis. Mildly dilated common bile duct in the setting of cholecystectomy. Mildly thick-walled urinary bladder. Recommend correlation with urinalysis. Patient reassessment: pt with slight improvement in pain. Discussed all results with patient in depth will admit to med/surg for colitis, failure of outpatient abx. case discussed with Dr. Gillette accepts admission Impression: colitis, failure of outpatient abx admit med/surg Reassessment Condition: Re-examined, Improving,but remains with symptoms - RAD Interpretation Radiology Orders: 10/31/18 16:57 ABD & PELVIS IV CONTRAST ONLY [CT] Stat ABDOMEN COMPLETE [US] Stat - Medication Orders Current Medication Orders: Sodium Chloride (Sodium Chloride 0.9%) 1,000 mls @ 999 mls/hr IV .Q1H1M STA Stop: 10/31/18 17:57 Discontinued Medications Ondansetron HCl (Zofran Odt) 4 mg PO STAT STA Stop: 10/31/18 16:58 Pantoprazole Sodium (Protonix Inj) 40 mg IVP STAT STA Stop: 10/31/18 16:58 Disposition/Present on Arrival - Present on Arrival Any Indicators Present on Arrival: No History of DVT/PE: No History of Uncontrolled Diabetes: No Urinary Catheter: No History of Decub. Ulcer: No History Surgical Site Infection Following: None - Disposition Have Diagnosis and Disposition been Completed?: Yes Diagnosis: Colitis, Leukocytosis Disposition: HOSPITALIZED Disposition Time: 18:51 Patient Plan: Observation Patient Problems: Current Active Problems Problem Status Onset Colitis Acute Leukocytosis Acute Condition: FAIR Referrals: Jesica Cox MD [Primary Care Provider] - Follow up with primary Forms: Control4 ([place]ese)
[2018-10-31] MEDS ORDERED: Morphine 4 mg/ml ISec IVP STA (17:41)
[2018-10-31 17:55] LABS: BASO # 0.02 K/mm3 (0.0-2.0); BASO % 0.2 % (0.0-3.0); EOS # 0.1 (0.0-0.7); EOS % 0.4 % (1.5-5.0); HEMOGLOBIN 14.4 g/dL (12.0-16.0); LYMPH # 2.6 (1.2-3.4); MEAN CELL VOLUME 79.3 fl (80.0-105.0); MEAN CORPUSCULAR HEMOGLOBIN 26.4 pg (25.0-35.0); MEAN CORPUSCULAR HGB CONC 33.3 g/dl (31.0-37.0); MEAN PLATELET VOLUME 11.2 fl (7.0-11.0); MONO # 0.7 (0.1-0.6); MONO % 5.2 % (1.0-6.0); RBC 5.45 10^6/uL (3.5-6.1); RED CELL DISTRIBUTION WIDTH 14.6 % (11.5-14.5)
[2018-10-31 17:59] LABS: ALB/GLOB RATIO 1.1 (1.1-1.8); ALBUMIN 4.4 g/dL (3.0-4.8); ALT/SGPT 55 U/L (7-56); AST/SGOT 33 U/L (14-36); BLOOD UREA NITROGEN 10 mg/dL (7-21); CALCIUM 9.5 mg/dL (8.4-10.5); GFR NON-AFRICAN AMERICAN > 60; LIPASE 164 U/L (23-300)
--- NOTE | 2018-10-31 18:13 | US ---
HISTORY: upper abdominal pain COMPARISON: CT abdomen and pelvis with IV contrast performed 10/18/18 TECHNIQUE: Sonographic evaluation of the abdomen. FINDINGS: LIVER: Measures 15.1 x 11.1 x 18.2 cm. Nodular hepatic contour may be seen in the setting of cirrhosis. Echogenic liver may be seen in setting of hepatic parenchymal disease or fatty infiltration. No focal hepatic mass identified. The main portal vein appears patent with normal directional flow. No intrahepatic bile duct dilatation. GALLBLADDER: Cholecystectomy. COMMON BILE DUCT: Measures 5 mm. PANCREAS: Not well visualized. RIGHT KIDNEY: Measures 11.0 x 5.2 x 4.4 cm. No obstructing calculus or hydronephrosis identified. LEFT KIDNEY: Measures 10.7 x 5.5 x 4.5 cm. No obstructing calculus or hydronephrosis identified. SPLEEN: Measures approximately 9.5 cm. AORTA: Limited views appear unremarkable. IVC: Limited views appear unremarkable. OTHER FINDINGS: None. IMPRESSION: Echogenic liver may be seen in setting of hepatic parenchymal disease or fatty infiltration. Nodular hepatic contour may be seen in the setting of cirrhosis. Cholecystectomy.
[2018-10-31] MEDS ORDERED: Iohexol 350 MG/100 ML VIAL ONE (18:23)
--- NOTE | 2018-10-31 18:54 | CT ---
Date of service: 10/31/2018 PROCEDURE: CT Abdomen and Pelvis with contrast HISTORY: abd pain COMPARISON: CT abdomen and pelvis with IV contrast performed 10/18/18, abdominal ultrasound performed 10/31/18 TECHNIQUE: Contrast dose: 100 mL Omnipaque 350 IV Radiation dose: Total exam DLP = 744.13 mGy-cm. This CT exam was performed using one or more of the following dose reduction techniques: Automated exposure control, adjustment of the mA and/or kV according to patient size, and/or use of iterative reconstruction technique. FINDINGS: LOWER THORAX: No visible consolidation, pleural effusion, or pneumothorax. LIVER: Hepatomegaly. Hypoattenuation of the liver compatible with hepatic steatosis. GALLBLADDER AND BILE DUCTS: Cholecystectomy. Common bile duct measures approximately 7 mm in diameter. PANCREAS: Unremarkable. SPLEEN: Unremarkable. ADRENALS: Unremarkable. KIDNEYS AND URETERS: The kidneys enhance symmetrically. No hydronephrosis or obstructing calculus identified. VASCULATURE: No aortic aneurysm. Minimal atherosclerotic calcifications of the aorta. BOWEL: Stomach is nondistended. Lack of oral contrast limits evaluation for bowel pathology. Bowel loops appear within normal limits of caliber without evidence of obstruction. There is moderate wall thickening of the ascending and transverse colon consistent with right-sided colitis. Mildly thick-walled small bowel loops may reflect enteritis. APPENDIX: No secondary signs of acute appendicitis. PERITONEUM: No significant free fluid. No definite free air. LYMPH NODES: No bulky adenopathy identified. BLADDER: Mildly thick-walled urinary bladder; recommend correlation with urinalysis. REPRODUCTIVE: Unremarkable. BONES: No acute osseous abnormality is detected. OTHER FINDINGS: None. IMPRESSION: Moderate wall thickening of the right colon consistent with colitis. Small bowel wall thickening may be related to enteritis. Mildly dilated common bile duct in the setting of cholecystectomy. Mildly thick-walled urinary bladder. Recommend correlation with urinalysis.
[2018-10-31 19:11] LABS: TROPONIN I < 0.01 ng/mL
[2018-10-31 19:12] LABS: PH,URINE 6.5 (4.7-8.0); URINE APPEARANCE CLEAR (CLEAR); URINE BILIRUBIN NEGATIVE (NEGATIVE); URINE BLOOD NEGATIVE (NEGATIVE); URINE COLOR STRAW (YELLOW); URINE GLUCOSE (UA) NEGATIVE (NEGATIVE); URINE LEUKOCYTE ESTERASE NEGATIVE Leu/uL (NEGATIVE); URINE PROTEIN NEGATIVE mg/dL (<30 mg/dL); URINE UROBILINOGEN 0.2 E.U./dL (<1 E.U./dL)
[2018-10-31] MEDS ORDERED: cefTRIAXone 1 gm 1 GM/100 ML BAG IVPB STA (19:20)
[2018-10-31] MEDS ORDERED: metroNIDAZOLE IV 500 mg/100 ml 500 MG/100 ML BAG IVPB STA (19:20)
[2018-10-31] MEDS: metroNIDAZOLE IV 500 mg/100 ml 500 MG/100 ML BAG IVPB SCH (22:12)
--- NOTE | 2018-10-31 22:21 | CP.PCM.HP ---
History of Present Illness - History of Present Illness History of Present Illness: Medicine History and Physical for Hospitalist Service, Dr. Isaac Frazier DO PGY-1 This is a 48 y o female with PMhx HTN, hemorrhoids, GERD who presents to the ED c/o abdominal pain that has been present for the past month. Pt states that she went to [facility] ED 2 weeks ago and was prescribed Levaquin and Flagyl as antibiotics for treatment of colitis. Pt states she took entire 10 days of therapy, but states that the abd pain has not improved. Localizes abd pain to mid-epigastric area with associated radiation to the back. States abd pain is improved since being given pain meds in the ED, but states that she feels bloated and has "gas pain". Denies subjective fevers or chills currently but states that last week, she took her temperature at homeWas unable to tolerate PO diet today and admitted to multiple episodes of nausea and non-bloody, non-bilious vomiting. Also admitted to multiple episodes of watery diarrhea today and pt states she wiped her bottom and noted small streak of blood on toilet paper. States that she had had hx of chronic constipation and sometimes goes several days without having bowel movement. Denies headache, chest pain, sob, urinary complaints, dysuria, urinary frequency, low back pain, or other symptoms. Denies hx sick contacts, trying new foods, or recent travel. PMhx: HTN, hemorrhoids, GERD PSurgHx: Hysterectomy 10 y ago for uterine fibroids, Cholecystectomy 8 y ago Allergies: NKDA Home meds: Losartan 100 mg daily, Metoprolol 25 mg daily, Amlodipine 5 mg daily, Omeprazole daily Fam hx: denies Soc hx: denies smoking, EtOH, or illicit drug use PMD: Dr. Haseeb Cox ([place]) Outpatient pharmacy: [facility] ([facility]) Present on Admission - Present on Admission Any Indicators Present on Admission: No History of DVT/PE: No History of Uncontrolled Diabetes: No Urinary Catheter: No Decubitus Ulcer Present: No Review of Systems - Constitutional Constitutional: absent: Chills, Fever - Cardiovascular Cardiovascular: absent: Chest Pain, Dyspnea on Exertion, Leg Edema, Palpitations - Respiratory Respiratory: absent: Cough, Dyspnea, Wheezing - Gastrointestinal Gastrointestinal: Abdominal Pain, Constipation, Diarrhea, Loose Stools, Nausea, Vomiting Past Patient History - Infectious Disease Hx of Infectious Diseases: None - Tetanus Immunizations Tetanus Immunization: Unknown - Past Social History Smoking Status: Never Smoked - CARDIAC Hx Cardiac Disorders: Yes Hx Hypertension: Yes - PULMONARY Hx Respiratory Disorders: Yes Hx Pneumonia: Yes - NEUROLOGICAL Hx Neurological Disorder: Yes Hx Dizziness: Yes (SYNCOPE) - HEENT Hx HEENT Problems: Yes (PHARYNGITIS 5-14-18) - RENAL Hx Chronic Kidney Disease: No - ENDOCRINE/METABOLIC Hx Endocrine Disorders: Yes Hx Diabetes Mellitus Type 2: Yes - HEMATOLOGICAL/ONCOLOGICAL Hx Blood Disorders: No - INTEGUMENTARY Hx Dermatological Problems: No - MUSCULOSKELETAL/RHEUMATOLOGICAL Hx Musculoskeletal Disorders: No - GASTROINTESTINAL Hx Gastrointestinal Disorders: Yes (H/O LIPOSUCTION,FATTY LIVER) Other/Comment: COLITIS - GENITOURINARY/GYNECOLOGICAL Hx Genitourinary Disorders: Yes (BREAST REDUCTION,HYSTERECTOMY,C/S) - PSYCHIATRIC Hx Psychophysiologic Disorder: No Hx Depression: No Hx Substance Use: No - SURGICAL HISTORY Hx Cholecystectomy: Yes Hx Hysterectomy: Yes - ANESTHESIA Hx Anesthesia: Yes Hx Anesthesia Reactions: No Hx Malignant Hyperthermia: No Meds Allergies/Adverse Reactions: Allergies Allergy/AdvReac Type Severity Reaction Status Date / Time No Known Allergies Allergy Verified 10/18/18 16:11 Physical Exam - Constitutional Appears: Non-toxic, No Acute Distress - Head Exam Head Exam: ATRAUMATIC, NORMOCEPHALIC - Eye Exam Eye Exam: EOMI, Normal appearance, PERRL - ENT Exam ENT Exam: Mucous Membranes Moist - Respiratory Exam Respiratory Exam: Clear to Auscultation Bilateral, NORMAL BREATHING PATTERN. absent: Rales, Rhonchi, Wheezes - Cardiovascular Exam Cardiovascular Exam: REGULAR RHYTHM, +S1, +S2. absent: Gallop, Rubs, Systolic Murmur - GI/Abdominal Exam GI & Abdominal Exam: Normal Bowel Sounds, Soft, Tenderness. absent: Distended, Organomegaly, Rebound Additional comments: Tenderness to palpation in mid-epigastric region - Extremities Exam Extremities exam: Positive for: full ROM, normal capillary refill, normal inspection, pedal pulses present. Negative for: calf tenderness, pedal edema - Neurological Exam Neurological exam: Alert, CN II-XII Intact, Oriented x3, Reflexes Normal - Psychiatric Exam Psychiatric exam: Normal Affect, Normal Mood - Skin Skin Exam: Dry, Intact, Normal Color, Warm Results - Vital Signs Recent Vital Signs: Last Vital Signs Temp 98.5 F 10/31/18 16:28 Pulse 84 10/31/18 17:40 Resp 18 10/31/18 17:40 BP 135/74 10/31/18 17:40 Pulse Ox 98 10/31/18 17:40 - Labs Result Diagrams: 10/31/18 17:38 10/31/18 17:38 Labs: Laboratory Results - last 24 hr 10/31/18 10/31/18 10/31/18 17:20 17:38 17:38 WBC 13.0 H RBC 5.45 Hgb 14.4 Hct 43.2 MCV 79.3 L MCH 26.4 MCHC 33.3 RDW 14.6 H Plt Count 253 MPV 11.2 H Neut % (Auto) 74.2 H Lymph % (Auto) 20.0 L [place] % (Auto) 5.2 Eos % (Auto) 0.4 L Baso % (Auto) 0.2 Lymph # (Auto) 2.6 [place] # (Auto) 0.7 H Eos # (Auto) 0.1 Baso # (Auto) 0.02 Absolute Neuts (auto) 9.66 H Sodium 140 Potassium 3.7 Chloride 101 Carbon Dioxide 31 Anion Gap 12 BUN 10 Creatinine 0.6 L Est GFR ( Amer) > 60 Est GFR (Non-Af Amer) > 60 Random Glucose 111 H Calcium 9.5 Total Bilirubin 0.5 AST 33 ALT 55 Alkaline Phosphatase 80 Lactate Dehydrogenase 559 Total Creatine Kinase 80 Troponin I < 0.01 Total Protein 8.4 H Albumin 4.4 Globulin 4.1 Albumin/Globulin Ratio 1.1 Lipase 164 Urine Color Urine Appearance Urine pH Ur Specific [place] Urine Protein Urine Glucose (UA) Urine Ketones Urine Blood Urine Nitrate Urine Bilirubin Urine Urobilinogen Ur Leukocyte Esterase 10/31/18 18:45 WBC RBC Hgb Hct MCV MCH MCHC RDW Plt Count MPV Neut % (Auto) Lymph % (Auto) [place] % (Auto) Eos % (Auto) Baso % (Auto) Lymph # (Auto) [place] # (Auto) Eos # (Auto) Baso # (Auto) Absolute Neuts (auto) Sodium Potassium Chloride Carbon Dioxide Anion Gap BUN Creatinine Est GFR ( Amer) Est GFR (Non-Af Amer) Random Glucose Calcium Total Bilirubin AST ALT Alkaline Phosphatase Lactate Dehydrogenase Total Creatine Kinase Troponin I Total Protein Albumin Globulin Albumin/Globulin Ratio Lipase Urine Color Straw Urine Appearance Clear Urine pH 6.5 Ur Specific [place] 1.010 Urine Protein Negative Urine Glucose (UA) Negative Urine Ketones Negative Urine Blood Negative Urine Nitrate Negative Urine Bilirubin Negative Urine Urobilinogen 0.2 Ur Leukocyte Esterase Negative Assessment & Plan - Assessment and Plan (Free Text) Assessment: This is a 48 y o female with PMhx HTN, hemorrhoids, GERD who presents to the ED c/o abdominal pain that has been present for the past month. Admitted for colitis, failure of outpatient antibiotic treatment. Plan: Colitis R/o bacterial etiology as source Admit to med/surg NPO, advance diet as tolerated IVF @ 100 cc/hr Start Rocephin IVPB q daily, Flagyl IVPB q8h Zofran prn for nausea ID consulted (Dr. Nicole), recs appreciated GI consulted (Dr. Cuevas), recs appreciated U/s: Echogenic liver may be seen in setting of hepatic parenchymal disease or fatty infiltration. Nodular hepatic contour may be seen in setting of cirrhosis. S/p cholecystectomy. CT abd/pelvis: Moderate wall thickening of R colon c/w colitis. Small bowel wall thickening may be related to enteritis. Mildly dilated CBD in setting of cholecystectomy. Mildly thick-walled urinary bladder. Recommend correlation w/ u/a. U/a negative on admission. WBC 13 on admission Lipase wnl Procal pending Blood cxs pending Diarrhea R/o infectious source, may also be 2/2 to side effect of antibiotic therapy outpatient Stool studies pending Hx hemorrhoids Rectal exam demonstrated no active signs of bleeding Sitz baths prn Cont to monitor bowel function Hx HTN C/w home meds Losartan, Metoprolol, and Amlodipine daily Cont to trend bp while on IV fluids DVT/GI ppx: SCDs/Protonix Pt seen, examined with, and plan discussed with Dr. Isaac Gillette, attending physi sandoval. Jamie Frazier DO PGY-1, [employer] Pager #[phone]
[2018-10-31] MEDS: Sodium Chloride 0.9% 1,000 ML IV SCH (23:56)
[2018-11-01] MEDS ORDERED: DiphenhydrAMINE 50 mg/ml Inj IVP STA ×2 (00:51→21:23)
[2018-11-01 04:31] VITALS: BMI 32.9
[2018-11-01] MEDS: metroNIDAZOLE IV 500 mg/100 ml 500 MG/100 ML BAG IVPB SCH ×2 (05:39→13:39)
[2018-11-01 07:54] LABS: BASO # 0.02 K/mm3 (0.0-2.0); BASO % 0.2 % (0.0-3.0); EOS # 0.1 (0.0-0.7); EOS % 1.1 % (1.5-5.0); HEMOGLOBIN 12.6 g/dL (12.0-16.0); LYMPH # 2.5 (1.2-3.4); LYMPH % 28.3 % (22.0-35.0); MEAN CELL VOLUME 79.3 fl (80.0-105.0); MEAN CORPUSCULAR HGB CONC 32.8 g/dl (31.0-37.0); MEAN PLATELET VOLUME 10.9 fl (7.0-11.0); MONO # 0.5 (0.1-0.6); MONO % 5.1 % (1.0-6.0); RBC 4.84 10^6/uL (3.5-6.1); RED CELL DISTRIBUTION WIDTH 14.8 % (11.5-14.5); WHITE BLOOD COUNT 8.9 10^3/uL (4.5-11.0)
[2018-11-01 08:09] LABS: INR 1.11; PARTIAL THROMBOPLASTIN TIME 29.6 Seconds (26.9-38.3); PROTHROMBIN TIME 12.5 SECONDS (9.4-12.5)
[2018-11-01 08:21] LABS: ALBUMIN 3.4 g/dL (3.0-4.8); ALT/SGPT 53 U/L (7-56); AST/SGOT 27 U/L (14-36); BLOOD UREA NITROGEN 8 mg/dL (7-21); CALCIUM 8.7 mg/dL (8.4-10.5); GFR NON-AFRICAN AMERICAN > 60
--- NOTE | 2018-11-01 08:49 | PN ---
DATE: 11/01/2018 HISTORY OF PRESENT ILLNESS: I saw Ms. Dumont this morning. She is a 48-year-old female with past medical history of hypertension, hemorrhoids, gastric reflux, gastritis, sent to the emergency room after continuing complaints of diffuse abdominal pain going of roughly a month. Apparently, she went to the emergency room two weeks ago, was prescribed Levaquin or Flagyl, which she completed with basically no improvement in abdominal pain. She note that the pain improved after analgesics in the emergency room. There has been no hematemesis or rectal bleeding; however, she has had several episodes of nausea in addition to diarrhea. There has been no gross evidence of rectal bleeding. PAST SURGICAL HISTORY: Hysterectomy, uterine fibroids, cholecystectomy. MEDICATIONS: Medication at home include losartan, metoprolol, amlodipine, and omeprazole. She is not practice anti-reflux precautions. At bedside this morning, the patient indicates still significant abdominal pain range of 6-7/10, she does not feel she is able to handle any oral food intake. PHYSICAL EXAMINATION: VITAL SIGNS: I reviewed this patient's vital signs. HEENT: Noncontributory, except for dry mouth. LUNGS: Clear to auscultation. HEART: Regular rate and rhythm. ABDOMEN: Mildly distended. She is mildly tender in the epigastric area. She is moderately tender in the area of the right lower quadrant, the right paraumbilical and periumbilical area. The left upper and left lower quadrant, noncontributory. LABORATORY DATA: White count of 13 with H and H of 14 and 43. Chemistry for the most noncontributory. She had an abdominal ultrasound, which has evidence of cholecystectomy. She has evidence of Hepatic steatosis on the ultrasound. CT scan images indicate pancreas unremarkable, status post cholecystectomy status. Images suggestive of wall thickening in the area of the ascending, transverse, proximal transverse colon. ASSESSMENT AND PLAN: This is a 48-year-old female with complaints of diffuse abdominal pain admitted after being seen as an outpatient with oral antibiotics, which did not work. Currently, she is on ceftriaxone, metronidazole as well as pantoprazole. If the orders are adequate, if her pain or nausea resolved to some degree, may consider very small portions of ice chips or clear liquids. Depending on the patient does over the weekend, may consider performing endoscopy procedure especially to evaluate the area of the right colon since the pain has been going on for so long. The patient was agreeable to this. Blane Cuevas DO, PhD MTDTerrell
[2018-11-01] MEDS ORDERED: Metoprolol Succinate 25 mg XL Tab PO SCH ×2 (10:00)
[2018-11-01] MEDS ORDERED: cefTRIAXone 1 gm 1 GM/100 ML BAG IVPB SCH (10:00)
--- NOTE | 2018-11-01 11:33 | CARD ---
APPROVED REPORT Date of service: 10/31/2018 EKG Measurement Heart [id number] <Conclusion> Normal sinus rhythm Low voltage QRS Poor R Progression V Leads.
--- NOTE | 2018-11-01 15:00 | CP.PCM.CON ---
<Hiro Mathias - Last Filed: 11/01/18 14:55> History of Present Illness - History of Present Illness History of Present Illness: ID Consult Note 48 year old female with past medical history of GERD, HTN, and hemorrhoids presents for worsening abdominal pain for the past month. Patient states she recently came to the ED 2 weeks ago and was found to have colitis. Patient was given Flagyl and Levaquin for 10 days. Patient completed therapy and patient did not improve. Patient states she has epigastric pain, nonradiating. She also admits to constipation and occasional nausea and vomiting. She admits to having decreased oral intake. Denies chest pain, shortness breath, dysuria, numbness, tingling, fever, chills. Medical hx: GERD, HTN, and hemorrhoids Surgical Hx: Hysterectomy, Cholecystectomy Allergies: NKDA Medications: Reviewed, as per MAR Family hx: denies Social hx: denies alcohol, tobacco, or illicit drug use Review of Systems - Review of Systems Review of Systems: 12 point ROS as per HPI, otherwise negative Past Patient History - Infectious Disease Hx of Infectious Diseases: None - Tetanus Immunizations Tetanus Immunization: Unknown - Past Social History Smoking Status: Never Smoked - CARDIAC Hx Cardiac Disorders: Yes Hx Hypertension: Yes - PULMONARY Hx Respiratory Disorders: Yes Hx Pneumonia: Yes - NEUROLOGICAL Hx Neurological Disorder: Yes Hx Dizziness: Yes (SYNCOPE) - HEENT Hx HEENT Problems: Yes (PHARYNGITIS 02-11-18) - RENAL Hx Chronic Kidney Disease: No - ENDOCRINE/METABOLIC Hx Endocrine Disorders: Yes Hx Diabetes Mellitus Type 2: Yes - HEMATOLOGICAL/ONCOLOGICAL Hx Blood Disorders: No - INTEGUMENTARY Hx Dermatological Problems: No - MUSCULOSKELETAL/RHEUMATOLOGICAL Hx Musculoskeletal Disorders: No - GASTROINTESTINAL Hx Gastrointestinal Disorders: Yes (H/O LIPOSUCTION,FATTY LIVER) Other/Comment: COLITIS - GENITOURINARY/GYNECOLOGICAL Hx Genitourinary Disorders: Yes (BREAST REDUCTION,HYSTERECTOMY,C/S) - PSYCHIATRIC Hx Psychophysiologic Disorder: No Hx Depression: No - SURGICAL HISTORY Hx Cholecystectomy: Yes Hx Hysterectomy: Yes - ANESTHESIA Hx Anesthesia: Yes Hx Anesthesia Reactions: No Hx Malignant Hyperthermia: No Meds Allergies/Adverse Reactions: Allergies Allergy/AdvReac Type Severity Reaction Status Date / Time No Known Allergies Allergy Verified 10/18/18 16:11 - Medications Medications: Current Medications Metronidazole (Flagyl) 500 mg in 100 mls @ 100 mls/hr IVPB Q8 [facility]; Protocol Last Admin: 11/01/18 13:39 Dose: 100 mls/hr Ceftriaxone Sodium (Rocephin 1 Gram Ivpb) 1 gm in 100 mls @ 100 mls/hr IVPB DAILY [facility]; Protocol Last Admin: 11/01/18 10:40 Dose: 100 mls/hr Sodium Chloride (Sodium Chloride 0.9%) 1,000 mls @ 100 mls/hr IV .Q10H [facility] Last Admin: 10/31/18 23:56 Dose: 100 mls/hr Ondansetron HCl (Zofran Inj) 4 mg IVP Q6H PRN PRN Reason: Nausea/Vomiting Pantoprazole Sodium (Protonix Inj) 40 mg IVP DAILY [facility] Last Admin: 11/01/18 10:40 Dose: 40 mg Physical Exam - Constitutional Appears: Non-toxic, No Acute Distress - Head Exam Head Exam: ATRAUMATIC, NORMAL INSPECTION, NORMOCEPHALIC - ENT Exam ENT Exam: Mucous Membranes Moist - Respiratory Exam Respiratory Exam: Decreased Breath Sounds, NORMAL BREATHING PATTERN. absent: Rales, Rhonchi, Wheezes - Cardiovascular Exam Cardiovascular Exam: RRR, +S1, +S2 - GI/Abdominal Exam GI & Abdominal Exam: Diminished Bowel Sounds, Soft, Tenderness (Epigastric). absent: Distended, Guarding, Rebound Additional comments: Cholecystectomy scar - Extremities Exam Extremities exam: Positive for: normal inspection. Negative for: pedal edema - Neurological Exam Neurological exam: Alert, Oriented x3 - Psychiatric Exam Psychiatric exam: Normal Affect, Normal Mood - Skin Skin Exam: Intact, Normal Color, Warm Results - Vital Signs Recent Vital Signs: Last Vital Signs Temp 98.5 F 11/01/18 06:00 Pulse 60 11/01/18 06:00 Resp 20 11/01/18 06:00 BP 119/69 11/01/18 06:00 Pulse Ox 98 11/01/18 06:00 - Labs Result Diagrams: 11/01/18 07:30 11/01/18 07:30 Labs: Laboratory Results - last 24 hr 10/31/18 10/31/18 10/31/18 17:20 17:38 17:38 WBC 13.0 H RBC 5.45 Hgb 14.4 Hct 43.2 MCV 79.3 L MCH 26.4 MCHC 33.3 RDW 14.6 H Plt Count 253 MPV 11.2 H Neut % (Auto) 74.2 H Lymph % (Auto) 20.0 L Cobb % (Auto) 5.2 Eos % (Auto) 0.4 L Baso % (Auto) 0.2 Lymph # (Auto) 2.6 Cobb # (Auto) 0.7 H Eos # (Auto) 0.1 Baso # (Auto) 0.02 Absolute Neuts (auto) 9.66 H PT INR APTT Sodium 140 Potassium 3.7 Chloride 101 Carbon Dioxide 31 Anion Gap 12 BUN 10 Creatinine 0.6 L Est GFR ( Amer) > 60 Est GFR (Non-Af Amer) > 60 Random Glucose 111 H Calcium 9.5 Phosphorus Magnesium Total Bilirubin 0.5 AST 33 ALT 55 Alkaline Phosphatase 80 Lactate Dehydrogenase 559 Total Creatine Kinase 80 Troponin I < 0.01 Total Protein 8.4 H Albumin 4.4 Globulin 4.1 Albumin/Globulin Ratio 1.1 Lipase 164 Urine Color Urine Appearance Urine pH Ur Specific [place] Urine Protein Urine Glucose (UA) Urine Ketones Urine Blood Urine Nitrate Urine Bilirubin Urine Urobilinogen Ur Leukocyte Esterase 10/31/18 11/01/18 11/01/18 18:45 07:30 07:30 WBC 8.9 D RBC 4.84 Hgb 12.6 Hct 38.4 MCV 79.3 L MCH 26.0 MCHC 32.8 RDW 14.8 H Plt Count 216 MPV 10.9 Neut % (Auto) 65.3 Lymph % (Auto) 28.3 Cobb % (Auto) 5.1 Eos % (Auto) 1.1 L Baso % (Auto) 0.2 Lymph # (Auto) 2.5 Cobb # (Auto) 0.5 Eos # (Auto) 0.1 Baso # (Auto) 0.02 Absolute Neuts (auto) 5.81 PT INR APTT Sodium 140 Potassium 3.7 Chloride 107 Carbon Dioxide 29 Anion Gap 7 L BUN 8 Creatinine 0.6 L Est GFR ( Amer) > 60 Est GFR (Non-Af Amer) > 60 Random Glucose 94 Calcium 8.7 Phosphorus 4.2 Magnesium 2.1 Total Bilirubin 0.7 AST 27 ALT 53 Alkaline Phosphatase 77 Lactate Dehydrogenase Total Creatine Kinase Troponin I Total Protein 6.9 Albumin 3.4 Globulin 3.4 Albumin/Globulin Ratio 1.0 L Lipase Urine Color Straw Urine Appearance Clear Urine pH 6.5 Ur Specific [place] 1.010 Urine Protein Negative Urine Glucose (UA) Negative Urine Ketones Negative Urine Blood Negative Urine Nitrate Negative Urine Bilirubin Negative Urine Urobilinogen 0.2 Ur Leukocyte Esterase Negative 11/01/18 07:30 WBC RBC Hgb Hct MCV MCH MCHC RDW Plt Count MPV Neut % (Auto) Lymph % (Auto) Cobb % (Auto) Eos % (Auto) Baso % (Auto) Lymph # (Auto) Cobb # (Auto) Eos # (Auto) Baso # (Auto) Absolute Neuts (auto) PT 12.5 INR 1.11 APTT 29.6 Sodium Potassium Chloride Carbon Dioxide Anion Gap BUN Creatinine Est GFR ( Amer) Est GFR (Non-Af Amer) Random Glucose Calcium Phosphorus Magnesium Total Bilirubin AST ALT Alkaline Phosphatase Lactate Dehydrogenase Total Creatine Kinase Troponin I Total Protein Albumin Globulin Albumin/Globulin Ratio Lipase Urine Color Urine Appearance Urine pH Ur Specific [place] Urine Protein Urine Glucose (UA) Urine Ketones Urine Blood Urine Nitrate Urine Bilirubin Urine Urobilinogen Ur Leukocyte Esterase Assessment & Plan - Assessment and Plan (Free Text) Plan: Right colon colitis with potential diffuse enteritis Hx of asthma Hx of GERD Hx of HTN Hx of hemorrhoids Plan Stop Rocephin and Flagyl Change patient to Zosyn Follow up GI recommendations, possible endoscopic evaluation Abdomen/Pelvis CT reviewed Follow up cultures Continue to monitor closely Mey, PGY-3 <Adal Nicole S - Last Filed: 11/01/18 16:35> Meds - Medications Medications: Current Medications Sodium Chloride (Sodium Chloride 0.9%) 1,000 mls @ 100 mls/hr IV .Q10H [facility] Last Admin: 10/31/18 23:56 Dose: 100 mls/hr Piperacillin Sod/Tazobactam Sod (Zosyn 3.375 In Ns 100ml) 100 mls @ 25 mls/hr IVPB Q8 [facility]; Protocol Stop: 11/02/18 09:59 Ondansetron HCl (Zofran Inj) 4 mg IVP Q6H PRN PRN Reason: Nausea/Vomiting Pantoprazole Sodium (Protonix Inj) 40 mg IVP DAILY [facility] Last Admin: 11/01/18 10:40 Dose: 40 mg Results - Vital Signs Recent Vital Signs: Last Vital Signs Temp 97.8 F 11/01/18 14:00 Pulse 63 11/01/18 14:00 Resp 20 11/01/18 14:00 BP 118/72 11/01/18 14:00 Pulse Ox 96 11/01/18 14:00 - Labs Result Diagrams: 11/01/18 07:30 11/01/18 07:30 Labs: Laboratory Results - last 24 hr 10/31/18 10/31/18 10/31/18 17:20 17:38 17:38 WBC 13.0 H RBC 5.45 Hgb 14.4 Hct 43.2 MCV 79.3 L MCH 26.4 MCHC 33.3 RDW 14.6 H Plt Count 253 MPV 11.2 H Neut % (Auto) 74.2 H Lymph % (Auto) 20.0 L Cobb % (Auto) 5.2 Eos % (Auto) 0.4 L Baso % (Auto) 0.2 Lymph # (Auto) 2.6 Cobb # (Auto) 0.7 H Eos # (Auto) 0.1 Baso # (Auto) 0.02 Absolute Neuts (auto) 9.66 H PT INR APTT Sodium 140 Potassium 3.7 Chloride 101 Carbon Dioxide 31 Anion Gap 12 BUN 10 Creatinine 0.6 L Est GFR ( Amer) > 60 Est GFR (Non-Af Amer) > 60 Random Glucose 111 H Calcium 9.5 Phosphorus Magnesium Total Bilirubin 0.5 AST 33 ALT 55 Alkaline Phosphatase 80 Lactate Dehydrogenase 559 Total Creatine Kinase 80 Troponin I < 0.01 Total Protein 8.4 H Albumin 4.4 Globulin 4.1 Albumin/Globulin Ratio 1.1 Lipase 164 Urine Color Urine Appearance Urine pH Ur Specific [place] Urine Protein Urine Glucose (UA) Urine Ketones Urine Blood Urine Nitrate Urine Bilirubin Urine Urobilinogen Ur Leukocyte Esterase 10/31/18 11/01/18 11/01/18 18:45 07:30 07:30 WBC 8.9 D RBC 4.84 Hgb 12.6 Hct 38.4 MCV 79.3 L MCH 26.0 MCHC 32.8 RDW 14.8 H Plt Count 216 MPV 10.9 Neut % (Auto) 65.3 Lymph % (Auto) 28.3 Cobb % (Auto) 5.1 Eos % (Auto) 1.1 L Baso % (Auto) 0.2 Lymph # (Auto) 2.5 Cobb # (Auto) 0.5 Eos # (Auto) 0.1 Baso # (Auto) 0.02 Absolute Neuts (auto) 5.81 PT INR APTT Sodium 140 Potassium 3.7 Chloride 107 Carbon Dioxide 29 Anion Gap 7 L BUN 8 Creatinine 0.6 L Est GFR ( Amer) > 60 Est GFR (Non-Af Amer) > 60 Random Glucose 94 Calcium 8.7 Phosphorus 4.2 Magnesium 2.1 Total Bilirubin 0.7 AST 27 ALT 53 Alkaline Phosphatase 77 Lactate Dehydrogenase Total Creatine Kinase Troponin I Total Protein 6.9 Albumin 3.4 Globulin 3.4 Albumin/Globulin Ratio 1.0 L Lipase Urine Color Straw Urine Appearance Clear Urine pH 6.5 Ur Specific [place] 1.010 Urine Protein Negative Urine Glucose (UA) Negative Urine Ketones Negative Urine Blood Negative Urine Nitrate Negative Urine Bilirubin Negative Urine Urobilinogen 0.2 Ur Leukocyte Esterase Negative 11/01/18 07:30 WBC RBC Hgb Hct MCV MCH MCHC RDW Plt Count MPV Neut % (Auto) Lymph % (Auto) Cobb % (Auto) Eos % (Auto) Baso % (Auto) Lymph # (Auto) Cobb # (Auto) Eos # (Auto) Baso # (Auto) Absolute Neuts (auto) PT 12.5 INR 1.11 APTT 29.6 Sodium Potassium Chloride Carbon Dioxide Anion Gap BUN Creatinine Est GFR ( Amer) Est GFR (Non-Af Amer) Random Glucose Calcium Phosphorus Magnesium Total Bilirubin AST ALT Alkaline Phosphatase Lactate Dehydrogenase Total Creatine Kinase Troponin I Total Protein Albumin Globulin Albumin/Globulin Ratio Lipase Urine Color Urine Appearance Urine pH Ur Specific [place] Urine Protein Urine Glucose (UA) Urine Ketones Urine Blood Urine Nitrate Urine Bilirubin Urine Urobilinogen Ur Leukocyte Esterase Assessment & Plan - Assessment and Plan (Free Text) Plan: Infectious diseases Attending Physician Attestation Patient seen and examined, discussed with medical scribe. I have reviewed the patient's history of present illness, past medical, social, personal and family histories, pertinent physical exam findings, course so far in this hospital admission, pertinent laboratory and imaging results. I agree with the above findings, assessment and plan. In addition, will start Zosyn for patient with probable right sided colitis. Follow up plans of GI. Follow up blood cultures.
--- NOTE | 2018-11-01 16:25 | CP.PCM.PN ---
<Ramos Mistry - Last Filed: 11/01/18 16:22> Subjective - Date & Time of Evaluation Date of Evaluation: 11/01/18 Time of Evaluation: 07:45 - Subjective Subjective: Interpretor #[id number] Pt seen and examined this morning at bedside. Per nursing, pt has no complaints of pain, requested sleeping pills, pt given Benadryl 25mg. Objective - Vital Signs/Intake and Output Vital Signs (last 24 hours): Temp Pulse Resp BP Pulse Ox 97.8 F 63 20 118/72 96 11/01/18 14:00 11/01/18 14:00 11/01/18 14:00 11/01/18 14:00 11/01/18 14:00 Intake and Output: 11/01/18 11/01/18 06:59 18:59 Intake Total 800 Balance 800 - Medications Medications: Current Medications Sodium Chloride (Sodium Chloride 0.9%) 1,000 mls @ 100 mls/hr IV .Q10H [facility] Last Admin: 10/31/18 23:56 Dose: 100 mls/hr Piperacillin Sod/Tazobactam Sod (Zosyn 3.375 In Ns 100ml) 100 mls @ 25 mls/hr I VPB Q8 [facility]; Protocol Stop: 11/02/18 09:59 Ondansetron HCl (Zofran Inj) 4 mg IVP Q6H PRN PRN Reason: Nausea/Vomiting Pantoprazole Sodium (Protonix Inj) 40 mg IVP DAILY [facility] Last Admin: 11/01/18 10:40 Dose: 40 mg - Labs Labs: 11/01/18 07:30 11/01/18 07:30 PT 12.5 SECONDS (9.4-12.5) 11/01/18 07:30 INR 1.11 11/01/18 07:30 APTT 29.6 Seconds (26.9-38.3) 11/01/18 07:30 - Constitutional Appears: No Acute Distress - Head Exam Head Exam: ATRAUMATIC, NORMOCEPHALIC - Eye Exam Eye Exam: EOMI - ENT Exam ENT Exam: Mucous Membranes Moist - Neck Exam Neck Exam: Full ROM - Respiratory Exam Respiratory Exam: Clear to Ausculation Bilateral, NORMAL BREATHING PATTERN. absent: Accessory Muscle Use, Respiratory Distress - Cardiovascular Exam Cardiovascular Exam: RRR, +S1, +S2. absent: Diastolic murmur, Murmur - GI/Abdominal Exam GI & Abdominal Exam: Soft, Normal Bowel Sounds. absent: Tenderness - Extremities Exam Extremities Exam: Full ROM. absent: Calf Tenderness, Pedal Edema - Neurological Exam Neurological Exam: Alert, Awake, Oriented x3 - Psychiatric Exam Psychiatric exam: Normal Affect, Normal Mood - Skin Skin Exam: Dry, Normal Color Assessment and Plan - Assessment and Plan (Free Text) Assessment: Pt is a 48 yo female with PMH HTN, hemorrhoids, GERD who presents to the ED complaining of abdominal pain that has been present for the past month. Admitted for colitis, failure of outpatient antibiotic treatment. Plan: Colitis, Diarrhea - NS@100 - leukocytosis has resolved - Rocephin IVPB q daily, Flagyl IVPB q8h - Zofran prn for nausea - Lipase 164 - Procal, follow up - Blood cultures and Stool studies pending - Abdomen US: Echogenic liver may be seen in setting of hepatic parenchymal disease or fatty infiltration. Nodular hepatic contour may be seen in setting of cirrhosis. S/p cholecystectomy. - CT abd/pelvis: Moderate wall thickening of R colon c/w colitis. Small bowel wall thickening may be related to enteritis. Mildly dilated CBD in setting of cholecystectomy. Mildly thick-walled urinary bladder - ID consulted Dr. Nicole, stop rocephin and flagyl, start Zosyn - GI consulted Dr. Cuevas HTN - home meds held at this time, Losartan, Metoprolol, Amlodipine - pt normotensive at this time, will continue to monitor Hx hemorrhoids - Sitz baths prn - Cont to monitor bowel function Ppx, Diet - SCD - Protonix - NPO Pt seen, examined, assessment and plan discussed with Dr Jaimee Mistry PGY1, Internal Medicine Resident <Jaimee Garner R - Last Filed: 11/03/18 11:09> Objective - Vital Signs/Intake and Output Vital Signs (last 24 hours): Temp Pulse Resp BP Pulse Ox 98.1 F 57 L 20 114/68 98 11/03/18 06:00 11/03/18 06:00 11/03/18 06:00 11/03/18 06:00 11/03/18 06:00 Intake and Output: 11/03/18 11/03/18 06:59 18:59 Intake Total 980 Balance 980 - Medications Medications: Current Medications Piperacillin Sod/Tazobactam Sod (Zosyn 3.375 In Ns 100ml) 100 mls @ 25 mls/hr IVPB Q8 [facility]; Protocol Stop: 11/08/18 22:01 Last Admin: 11/03/18 05:35 Dose: 25 mls/hr Sodium Chloride (Sodium Chloride 0.9%) 1,000 mls @ 75 mls/hr IV .[id number] [facility] Stop: 11/04/18 11:56 Ondansetron HCl (Zofran Inj) 4 mg IVP Q6H PRN PRN Reason: Nausea/Vomiting Pantoprazole Sodium (Protonix Inj) 40 mg IVP DAILY [facility] Last Admin: 11/02/18 10:36 Dose: 40 mg - Labs Labs: 11/03/18 08:30 11/03/18 08:30 PT 12.5 SECONDS (9.4-12.5) 11/01/18 07:30 INR 1.11 11/01/18 07:30 APTT 29.6 Seconds (26.9-38.3) 11/01/18 07:30 Attending/Attestation - Attestation I have personally seen and examined this patient.: Yes I have fully participated in the care of the patient.: Yes I have reviewed all pertinent clinical information, including history, physical exam and plan: Yes Notes (Text): Patient seen and examined by me with resident at 11 AM on 11/01/18. Case including HPI, physical exam, and assessment and plan discussed with resident. Agree with above with following additions/corrections. Patient is a 48-year-old female past medical history significant for hypertension, hemorrhoids, and GERD presents to the emergency room with abdominal pain for the past month. Patient states she feels a little better. She states her stomach feels "big." She states the pain is constant and feels like "I'm . "No nausea or vomiting. She states she is having some watery diarrhea. No chest pain or shortness of breath. No headaches or dizziness. No fevers or chills. No dysuria. Physical exam: General: Awake and alert lying in bed in no acute distress HEENT: Normocephalic, atraumatic. Extraocular muscles intact, pupils equal and reactive, no scleral icterus. Oropharynx is pink and moist. No pharyngeal jamaal thema or exudate apreciated. Neck is supple. Cardiovascular: Regular rhythm. Normal S1 and S2. No murmurs, rubs, or gallops appreciated Pulmonary: Normal respiratory effort. No rhonchi, rales, or wheezing appreciated. Gastrointestinal: Soft, nondistended. Positive mid abdominal tenderness. Positi ve bowel sounds all 4 quadrants. No guarding. Musculoskeletal: Moves all extremities. No calf tenderness. No edema. Central nervous system: AAOx3, CN 2-12 grossly intact. Dermatologic: Skin warm and dry. Assessment and plan: Patient is a 48-year-old female past medical history significant for hypertension, hemorrhoids, and GERD presents to the emergency room with abdominal pain for the past month. 1. Abdominal pain. Colitis. Enteritis. Failed outpatient therapy. Abdominal ultrasound radiologist showed echogenic liver may be seen in setting of hepatic parenchymal disease or fatty infiltration, nodular hepatic contour may be seen in the setting of cirrhosis, cholecystectomy. CT abdomen and pelvis per radiologist showed moderate wall thickening of the right colon consistent with colitis, mildly dilated common bile duct in the setting of cholecystectomy, small bowel wall thickening may be related to enteritis, mildly thick-walled urinary bladder. Continue Zosyn. ID following, recommendations appreciated. GI following, recommendations appreciated. Patient to have EGD and colonoscopy on 11/04/2017 if not improved. Continue IV fluids and nothing by mouth. Blood cultures negative so far. Patient afebrile. Leukocytosis resolved. 2. Essential hypertension. Home medications held for now as patient is normotensive here. Continue to monitor and add medications if needed. 3. GI/DVT prophylaxis. Protonix/SCDs 4. Patient is full code Case was discussed in detail with the patient regarding current diagnosis and treatment plan. All questions answered.
[2018-11-01] MEDS: Sodium Chloride 0.9% 1,000 ML IV SCH (21:05)
[2018-11-01] MEDS: Piperacillin/Tazobact 3.375 gm 100 ML IVPB SCH (21:06)
[2018-11-02] MEDS: Sodium Chloride 0.9% 1,000 ML IV SCH (04:35)
[2018-11-02] MEDS: Piperacillin/Tazobact 3.375 gm 100 ML IVPB SCH ×3 (05:21→21:50)
[2018-11-02 07:23] LABS: ALBUMIN 3.4 g/dL (3.0-4.8); ALT/SGPT 51 U/L (7-56); AST/SGOT 27 U/L (14-36); BLOOD UREA NITROGEN 8 mg/dL (7-21); CALCIUM 8.8 mg/dL (8.4-10.5); GFR NON-AFRICAN AMERICAN > 60
[2018-11-02 07:26] LABS: BASO # 0.02 K/mm3 (0.0-2.0); BASO % 0.3 % (0.0-3.0); EOS # 0.3 (0.0-0.7); EOS % 3.7 % (1.5-5.0); HEMOGLOBIN 12.8 g/dL (12.0-16.0); LYMPH % 28.7 % (22.0-35.0); MEAN CELL VOLUME 80.1 fl (80.0-105.0); MEAN CORPUSCULAR HEMOGLOBIN 26.5 pg (25.0-35.0); MEAN CORPUSCULAR HGB CONC 33.1 g/dl (31.0-37.0); MEAN PLATELET VOLUME 11.2 fl (7.0-11.0); MONO # 0.3 (0.1-0.6); MONO % 4.5 % (1.0-6.0); RBC 4.83 10^6/uL (3.5-6.1); RED CELL DISTRIBUTION WIDTH 14.9 % (11.5-14.5)
--- NOTE | 2018-11-02 10:16 | PN ---
DATE: 11/02/2018 SUBJECTIVE: I saw Ms. Dumont this morning. She is a 48-year-old female with complaints of abdominal pain, nausea, change of bowel movements prior to admission. The patient at the bedside this morning indicates she has made some progress relative to time of admission. There is no nausea and vomiting including the pain is somewhat less than she experienced as an outpatient. There is no hematemesis or rectal bleeding. PHYSICAL EXAMINATION: VITAL SIGNS: I reviewed this patient's vital signs. HEENT: Noncontributory. LUNGS: Clear to auscultation. HEART: Regular rate and rhythm. ABDOMEN: Soft. Tender in the area of the epigastric area as well as right lower quadrant, right periumbilical and periumbilical areas. LABORATORY DATA: Pending for this morning. OVERALL ASSESSMENT: This is a 48-year-old female with complaints of diffuse abdominal pain. We have to place her on antibiotics as an outpatient. I reviewed the notes of the house staff as well as Dr. Nicole. Currently, she has fecal leukocytes ordered and antibiotics were changed to Zosyn. The patient is currently on liquid diet which I reviewed this morning. I indicated that the patient is not making any progress. I will anticipate an endoscopic procedure on Sunday. She must be able to handle clear liquids, so she can do a colon prep tomorrow. The patient will be followed up by Infectious Disease as well as the house staff later on this morning. Blane Cuevas DO, PhD MTDTerrell
--- NOTE | 2018-11-02 15:48 | CP.PCM.PN ---
<Ramos Mistry - Last Filed: 11/02/18 16:00> Subjective - Date & Time of Evaluation Date of Evaluation: 11/02/18 Time of Evaluation: 07:00 - Subjective Subjective: Pt seen, examined this morning at bedside. Per nursing, pt scheduled for EGD with Dr Cole on Sunday. Tolerating diet well, given Benadryl for sleep. Objective - Vital Signs/Intake and Output Vital Signs (last 24 hours): Temp Pulse Resp BP Pulse Ox 98.1 F 73 20 125/74 99 11/02/18 14:00 11/02/18 14:00 11/02/18 14:00 11/02/18 14:00 11/02/18 14:00 Intake and Output: 11/02/18 11/02/18 06:59 18:59 Intake Total 180 Balance 180 - Medications Medications: Current Medications Sodium Chloride (Sodium Chloride 0.9%) 1,000 mls @ 100 mls/hr IV .Q10H [facility] Last Admin: 11/02/18 04:35 Dose: 100 mls/hr Piperacillin Sod/Tazobactam Sod (Zosyn 3.375 In Ns 100ml) 100 mls @ 25 mls/hr IVPB Q8 [facility]; Protocol Stop: 11/08/18 22:01 Last Admin: 11/02/18 13:58 Dose: 25 mls/hr Ondansetron HCl (Zofran Inj) 4 mg IVP Q6H PRN PRN Reason: Nausea/Vomiting Pantoprazole Sodium (Protonix Inj) 40 mg IVP DAILY [facility] Last Admin: 11/02/18 10:36 Dose: 40 mg - Labs Labs: 11/02/18 06:15 11/02/18 06:15 PT 12.5 SECONDS (9.4-12.5) 11/01/18 07:30 INR 1.11 11/01/18 07:30 APTT 29.6 Seconds (26.9-38.3) 11/01/18 07:30 - Constitutional Appears: In Acute Distress - Head Exam Head Exam: ATRAUMATIC, NORMOCEPHALIC - Eye Exam Eye Exam: EOMI - ENT Exam ENT Exam: Mucous Membranes Moist - Neck Exam Neck Exam: Full ROM - Respiratory Exam Respiratory Exam: Clear to Ausculation Bilateral, NORMAL BREATHING PATTERN. absent: Accessory Muscle Use, Respiratory Distress - Cardiovascular Exam Cardiovascular Exam: RRR, +S1, +S2. absent: Diastolic murmur, Murmur - GI/Abdominal Exam GI & Abdominal Exam: Soft, Normal Bowel Sounds. absent: Tenderness - Extremities Exam Extremities Exam: Full ROM. absent: Calf Tenderness, Pedal Edema, Tenderness - Neurological Exam Neurological Exam: Alert, Awake, Oriented x3 - Psychiatric Exam Psychiatric exam: Normal Affect, Normal Mood - Skin Skin Exam: Dry, Intact, Warm Assessment and Plan - Assessment and Plan (Free Text) Assessment: Pt is a 48 yo female with PMH of HTN, hemorrhoids, GERD who presents to the ED complaining of abdominal pain that has been present for the past month. Admitted for colitis after failing out pt antibiotic treatment. Plan: Colitis, Diarrhea - leukocytosis has resolved - NS@100 - Zofran prn for nausea - Lipase 164, Procal, 0.05 - Blood cultures No growth 24 hours, C diff NEGATIVE - CT abd/pelvis: Moderate wall thickening of R colon c/w colitis. Small bowel wall thickening may be related to enteritis. Mildly dilated CBD in setting of cholecystectomy. Mildly thick-walled urinary bladder - Abdomen US: Echogenic liver may be seen in setting of hepatic parenchymal disease or fatty infiltration. Nodular hepatic contour may be seen in setting of cirrhosis. S/p cholecystectomy. - GI consulted Dr. Cuevas, will likely have an EGD this Sunday - ID consulted Dom Oliver HTN - home meds held at this time, Losartan, Metoprolol, Amlodipine - pt normotensive at this time, will continue to monitor Hx hemorrhoids - Sitz baths prn - monitor bowel function Ppx, Diet - SCD - Protonix - NPO Pt seen, examined, assessment and plan discussed with Dr Jaimee Mistry PGY1, Internal Medicine Resident <Jaimee Garner R - Last Filed: 11/03/18 11:21> Objective - Vital Signs/Intake and Output Vital Signs (last 24 hours): Temp Pulse Resp BP Pulse Ox 98.1 F 57 L 20 114/68 98 11/03/18 06:00 11/03/18 06:00 11/03/18 06:00 11/03/18 06:00 11/03/18 06:00 Intake and Output: 11/03/18 11/03/18 06:59 18:59 Intake Total 980 Balance 980 - Medications Medications: Current Medications Piperacillin Sod/Tazobactam Sod (Zosyn 3.375 In Ns 100ml) 100 mls @ 25 mls/hr IVPB Q8 [facility]; Protocol Stop: 11/08/18 22:01 Last Admin: 11/03/18 05:35 Dose: 25 mls/hr Sodium Chloride (Sodium Chloride 0.9%) 1,000 mls @ 75 mls/hr IV .[id number] [facility] Stop: 11/04/18 11:56 Ondansetron HCl (Zofran Inj) 4 mg IVP Q6H PRN PRN Reason: Nausea/Vomiting Pantoprazole Sodium (Protonix Inj) 40 mg IVP DAILY [facility] Last Admin: 11/02/18 10:36 Dose: 40 mg - Labs Labs: 11/03/18 08:30 11/03/18 08:30 PT 12.5 SECONDS (9.4-12.5) 11/01/18 07:30 INR 1.11 11/01/18 07:30 APTT 29.6 Seconds (26.9-38.3) 11/01/18 07:30 Attending/Attestation - Attestation I have personally seen and examined this patient.: Yes I have fully participated in the care of the patient.: Yes I have reviewed all pertinent clinical information, including history, physical exam and plan: Yes Notes (Text): Patient seen and examined by me with resident at 10:55 AM on 11/02/18. Case including HPI, physical exam, and assessment and plan discussed with resident. Agree with above with following additions/corrections. Patient is a 48-year-old female past medical history significant for hypertension, hemorrhoids, and GERD presents to the emergency room with abdominal pain for the past month. Patient states she feels ok. Tolerating liquid diet. States abdominal pain is a little better today. Still with some intermittent diarrhea. No nausea or vomiting. No chest pain or shortness of breath. No headaches or dizziness. No fevers or chills. No dysuria. Physical exam: General: Awake and alert lying in bed in no acute distress HEENT: Normocephalic, atraumatic. Extraocular muscles intact, pupils equal and reactive, no scleral icterus. Oropharynx is pink and moist. No pharyngeal erythema or exudate apreciated. Neck is supple. Cardiovascular: Regular rhythm. Normal S1 and S2. No murmurs, rubs, or gallops appreciated Pulmonary: Normal respiratory effort. No rhonchi, rales, or wheezing appreciated. Gastrointestinal: Soft, nondistended. Positive mid abdominal tenderness. Positive bowel sounds all 4 quadrants. No guarding. Musculoskeletal: Moves all extremities. No calf tenderness. No edema. Central nervous system: AAOx3, CN 2-12 grossly intact. Dermatologic: Skin warm and dry. Assessment and plan: Patient is a 48-year-old female past medical history significant for hypertension, hemorrhoids, and GERD presents to the emergency room with abdominal pain for the past month. 1. Abdominal pain. Colitis. Enteritis. Failed outpatient therapy. Continue Zosyn. ID following, recommendations appreciated. GI following, recommendations appreciated. Patient to have EGD and colonoscopy on 11/04/2017. Continue IV fluids and liquid diet pr GI.Abdominal ultrasound radiologist showed echogenic liver may be seen in setting of hepatic parenchymal disease or fatty infiltration, nodular hepatic contour may be seen in the setting of cirrhosis, cholecystectomy. CT abdomen and pelvis per radiologist showed moderate wall thickening of the right colon consistent with colitis, mildly dilated common bile duct in the setting of cholecystectomy, small bowel wall thickening may be related to enteritis, mildly thick-walled urinary bladder. Blood cultures negative so far. Patient afebrile. Leukocytosis resolved. 2. Essential hypertension. Home medications held for now as patient is normotensive here. Continue to monitor and add medications if needed. 3. GI/DVT prophylaxis. Protonix/SCDs 4. Patient is full code Case was discussed in detail with the patient regarding current diagnosis and treatment plan. All questions answered.
--- NOTE | 2018-11-02 17:42 | CP.PCM.PN ---
Subjective - Date & Time of Evaluation Date of Evaluation: 11/02/18 Time of Evaluation: 10:00 - Subjective Subjective: No fevers, not in distress, less abdominal pain, no nausea. Objective - Vital Signs/Intake and Output Vital Signs (last 24 hours): Temp Pulse Resp BP Pulse Ox 97.6 F 60 18 121/67 98 11/02/18 06:00 11/02/18 06:00 11/02/18 06:00 11/02/18 06:00 11/02/18 06:00 Intake and Output: 11/02/18 11/02/18 06:59 18:59 Intake Total 180 Balance 180 - Medications Medications: Current Medications Sodium Chloride (Sodium Chloride 0.9%) 1,000 mls @ 100 mls/hr IV .Q10H [facility] Last Admin: 11/02/18 04:35 Dose: 100 mls/hr Piperacillin Sod/Tazobactam Sod (Zosyn 3.375 In Ns 100ml) 100 mls @ 25 mls/hr IVPB Q8 [facility]; Protocol Stop: 11/08/18 22:01 Last Admin: 11/02/18 05:21 Dose: 25 mls/hr Ondansetron HCl (Zofran Inj) 4 mg IVP Q6H PRN PRN Reason: Nausea/Vomiting Pantoprazole Sodium (Protonix Inj) 40 mg IVP DAILY [facility] Last Admin: 11/02/18 10:36 Dose: 40 mg - Labs Labs: 11/02/18 06:15 11/02/18 06:15 PT 12.5 SECONDS (9.4-12.5) 11/01/18 07:30 INR 1.11 11/01/18 07:30 APTT 29.6 Seconds (26.9-38.3) 11/01/18 07:30 - Constitutional Appears: Chronically Ill - Head Exam Head Exam: NORMAL INSPECTION - Respiratory Exam Respiratory Exam: Decreased Breath Sounds - Cardiovascular Exam Cardiovascular Exam: +S1, +S2 - GI/Abdominal Exam GI & Abdominal Exam: Soft. absent: Tenderness Assessment and Plan - Assessment and Plan (Free Text) Plan: Assessment right sided colitis with enteritis asthma GERD HTN hemorroids Plan reviewed CT A/P continue Zosyn stool for C. diff is negative - follow up blood and stool cx follow up further plans of GI will continue to monitor clinically
[2018-11-03] MEDS: Piperacillin/Tazobact 3.375 gm 100 ML IVPB SCH ×3 (05:35→23:50)
[2018-11-03 08:50] LABS: BASO # 0.01 K/mm3 (0.0-2.0); BASO % 0.1 % (0.0-3.0); EOS # 0.2 (0.0-0.7); EOS % 2.5 % (1.5-5.0); HEMOGLOBIN 13.7 g/dL (12.0-16.0); LYMPH # 2.4 (1.2-3.4); LYMPH % 31.9 % (22.0-35.0); MEAN CELL VOLUME 79.5 fl (80.0-105.0); MEAN CORPUSCULAR HEMOGLOBIN 26.2 pg (25.0-35.0); MEAN PLATELET VOLUME 10.6 fl (7.0-11.0); MONO # 0.3 (0.1-0.6); MONO % 4.4 % (1.0-6.0); RBC 5.22 10^6/uL (3.5-6.1); RED CELL DISTRIBUTION WIDTH 14.6 % (11.5-14.5); WHITE BLOOD COUNT 7.5 10^3/uL (4.5-11.0)
[2018-11-03 09:11] LABS: ALBUMIN 3.7 g/dL (3.0-4.8); ALT/SGPT 39 U/L (7-56); AST/SGOT 27 U/L (14-36); BLOOD UREA NITROGEN 5 mg/dL (7-21); CALCIUM 8.9 mg/dL (8.4-10.5); GFR NON-AFRICAN AMERICAN > 60
[2018-11-03] MEDS ORDERED: Peg-Electrolyte Oral Soln 4L (Golytely) PO ONE (09:30)
--- NOTE | 2018-11-03 09:39 | PN ---
DATE: 11/03/2018 SUBJECTIVE: I saw Ms. Dumont this morning. This is a 48-year-old female with complaints of abdominal pain with nausea and diarrhea prior to admission. The patient was treated temporally for colitis with antibiotics which did not work as an outpatient, thus prompting readmission. The symptoms have been going on for several weeks prior to coming to the hospital. There apparently has been no hematemesis or rectal bleeding. Relative to the day of admission the patient has made some progress, she is able to handle clear liquid diet with minimal problems. PHYSICAL EXAMINATION: VITAL SIGNS: I reviewed this patient's vital signs. HEENT: Noncontributory, except for dry mouth. LUNGS: Clear to auscultation. HEART: Regular rhythm. ABDOMEN: Soft. rubber mill tender in the epigastric area. Pain noted again in the right lower quadrant, right periumbilical and periumbilical areas. The abdomen is still mildly distended. LABORATORY DATA: Review of laboratory data indicate reasonable white count, H and H and platelets. Rest of electrolytes noncontributory. Still leukocytes were negative. ASSESSMENT: This is a patient, 48-year-old female still with complaints of abdominal pain, nausea, vomiting and diarrhea. She had significant findings on CT scan which indicated thick walled stomach as well as thickness in the wall of the proximal colon suggestive of a colitis. Reviewed the timespan ofsymptoms and the response to previous antibiotic therapy. The patient is still scheduled for an upper and lower endoscopy tomorrow morning. She will be doing her colon prep today. I reviewed the risks, benefits and alternatives of procedures, she still wishes to proceed with the endoscopic evaluation tomorrow. Blane Cuevas DO, PhD YOJANA
--- NOTE | 2018-11-03 12:45 | CP.PCM.PN ---
<FedeRamos Sebastian - Last Filed: 11/03/18 13:23> Subjective - Date & Time of Evaluation Date of Evaluation: 11/03/18 Time of Evaluation: 06:25 - Subjective Subjective: Pt seen and examined this morning. Pt report diarrhea. Per Nursing, tolerating CLD well, Stool sent down to lab for C diff and O/P. Objective - Vital Signs/Intake and Output Vital Signs (last 24 hours): Temp Pulse Resp BP Pulse Ox 98.1 F 57 L 20 114/68 98 11/03/18 06:00 11/03/18 06:00 11/03/18 06:00 11/03/18 06:00 11/03/18 06:00 Intake and Output: 11/03/18 11/03/18 06:59 18:59 Intake Total 980 Balance 980 - Medications Medications: Current Medications Piperacillin Sod/Tazobactam Sod (Zosyn 3.375 In Ns 100ml) 100 mls @ 25 mls/hr IVPB Q8 [facility]; Protocol Stop: 11/08/18 22:01 Last Admin: 11/03/18 05:35 Dose: 25 mls/hr Sodium Chloride (Sodium Chloride 0.9%) 1,000 mls @ 75 mls/hr IV .[id number] [facility] Stop: 11/04/18 11:56 Ondansetron HCl (Zofran Inj) 4 mg IVP Q6H PRN PRN Reason: Nausea/Vomiting Pantoprazole Sodium (Protonix Inj) 40 mg IVP DAILY [facility] Last Admin: 11/03/18 11:18 Dose: 40 mg - Labs Labs: 11/03/18 08:30 11/03/18 08:30 PT 12.5 SECONDS (9.4-12.5) 11/01/18 07:30 INR 1.11 11/01/18 07:30 APTT 29.6 Seconds (26.9-38.3) 11/01/18 07:30 - Constitutional Appears: No Acute Distress - Head Exam Head Exam: ATRAUMATIC, NORMOCEPHALIC - Eye Exam Eye Exam: EOMI - ENT Exam ENT Exam: Mucous Membranes Moist - Neck Exam Neck Exam: Full ROM - Respiratory Exam Respiratory Exam: Clear to Ausculation Bilateral, NORMAL BREATHING PATTERN. absent: Accessory Muscle Use, Respiratory Distress - Cardiovascular Exam Cardiovascular Exam: REGULAR RHYTHM, RRR, +S1, +S2. absent: Diastolic murmur, Murmur - GI/Abdominal Exam GI & Abdominal Exam: Soft, Normal Bowel Sounds - Extremities Exam Extremities Exam: Full ROM. absent: Pedal Edema - Neurological Exam Neurological Exam: Alert, Awake, Oriented x3 - Psychiatric Exam Psychiatric exam: Normal Affect, Normal Mood - Skin Skin Exam: Dry, Intact, Warm Assessment and Plan - Assessment and Plan (Free Text) Assessment: Pt is a 48 yo female with PMH of HTN, hemorrhoids, GERD who presents to the ED complaining of abdominal pain that has been present for the past month. Admitted for colitis after failing out pt antibiotic treatment. Plan: Colitis, Diarrhea - leukocytosis has resolved - Lipase 164, Procal, 0.05 - NS@75 - Zofran prn for nausea - Blood cultures No growth 48 hours, C diff NEGATIVE - CT abd/pelvis: Moderate wall thickening of R colon c/w colitis. Small bowel wall thickening may be related to enteritis. Mildly dilated CBD in setting of cholecystectomy. Mildly thick-walled urinary bladder - Abdomen US: Echogenic liver may be seen in setting of hepatic parenchymal disease or fatty infiltration. Nodular hepatic contour may be seen in setting of cirrhosis. S/p cholecystectomy. - ID consulted Angélica Oliversyn - GI consulted Dr. Cuevas, will likely have an EGD tomorrow morning HTN - pt normotensive at this time, will continue to monitor - home meds held at this time, Losartan, Metoprolol, Amlodipine Hx hemorrhoids - Sitz baths prn - monitor bowel function Ppx, Diet - SCD - Protonix - NPO Pt seen, examined, assessment and plan discussed with Dr Jaimee Mistry PGY1, Internal Medicine Resident <Jaimee Garner R - Last Filed: 11/04/18 16:14> Objective - Vital Signs/Intake and Output Vital Signs (last 24 hours): Temp Pulse Resp BP Pulse Ox 98.3 F 64 20 155/86 H 97 11/04/18 14:00 11/04/18 14:00 11/04/18 14:00 11/04/18 14:00 11/04/18 14:00 Intake and Output: 11/04/18 11/04/18 06:59 18:59 Intake Total 980 240 Balance 980 240 - Medications Medications: Current Medications Amlodipine Besylate (Norvasc) 5 mg PO DAILY [facility] Last Admin: 11/04/18 06:06 Dose: 5 mg Piperacillin Sod/Tazobactam Sod (Zosyn 3.375 In Ns 100ml) 100 mls @ 25 mls/hr IVPB Q8 [facility]; Protocol Stop: 11/08/18 22:01 Last Admin: 11/04/18 14:10 Dose: 25 mls/hr Ibuprofen (Motrin Tab) 400 mg PO Q6H PRN PRN Reason: Pain, severe (8-10) Ondansetron HCl (Zofran Inj) 4 mg IVP Q6H PRN PRN Reason: Nausea/Vomiting Pantoprazole Sodium (Protonix Inj) 40 mg IVP DAILY [facility] Last Admin: 11/03/18 11:18 Dose: 40 mg - Labs Labs: 11/04/18 08:00 11/04/18 08:00 PT 12.5 SECONDS (9.4-12.5) 11/01/18 07:30 INR 1.11 11/01/18 07:30 APTT 29.6 Seconds (26.9-38.3) 11/01/18 07:30 Attending/Attestation - Attestation I have personally seen and examined this patient.: Yes I have fully participated in the care of the patient.: Yes I have reviewed all pertinent clinical information, including history, physical exam and plan: Yes Notes (Text): Patient seen and examined by me with resident at 10:30AM on 11/03/18. Case including HPI, physical exam, and assessment and plan discussed with resident. Agree with above with following additions/corrections. Patient is a 48-year-old female past medical history significant for hypertension, hemorrhoids, and GERD presents to the emergency room with abdominal pain for the past month. Patient states she feels a little better today. Still having some abdominal pain. States she is still having diarrhea but isnt eating much. No nausea or vomiting. No chest pain or shortness of breath. No headaches or dizziness. No fevers or chills. No dysuria. Physical exam: General: Awake and alert lying in bed in no acute distress HEENT: Normocephalic, atraumatic. Extraocular muscles intact, pupils equal and reactive, no scleral icterus. Oropharynx is pink and moist. No pharyngeal erythema or exudate apreciated. Neck is supple. Cardiovascular: Regular rhythm. Normal S1 and S2. No murmurs, rubs, or gallops appreciated Pulmonary: Normal respiratory effort.No rhonchi, rales, or wheezing appreciated. Gastrointestinal: Soft, nondistended. Positive mid abdominal tenderness. Positive bowel sounds all 4 quadrants. No guarding. Musculoskeletal: Moves all extremities. No calf tenderness. No edema. Central nervous system: AAOx3,CN 2-12 grossly intact. Dermatologic: Skin warm and dry. Assessment and plan: Patient is a 48-year-old female past medical history significant for hypertension, hemorrhoids, and GERD presents to the emergency room with abdominal pain for the past month. 1. Abdominal pain. Colitis. Enteritis. Failed outpatient therapy. Continue Zosyn. ID following, recommendations appreciated. GI following, recommendations appreciated. Patient to have EGD and colonoscopy tomorrow 11/04/2017. Continue IV fluids and liquid diet per GI. Abdominal ultrasound per radiologist showed echogenic liver may be seen in setting of hepatic parenchymal disease or fatty infiltration, nodular hepatic contour may be seen in the setting of cirrhosis, cholecystectomy. CT abdomen and pelvis per radiologist showed moderate wall thickening of the right colon consistent with colitis, mildly dilated common bile duct in the setting of cholecystectomy, small bowel wall thickening may be related to enteritis, mildly thick-walled urinary bladder. Blood cultures negative so far. Patient afebrile. Leukocytosis resolved. 2. Essential hypertension. Continue Norvasc 3. GI/DVT prophylaxis. Protonix/SCDs 4. Patient is full code Case was discussed in detail with the patient regarding current diagnosis and tr eatment plan. All questions answered.
--- NOTE | 2018-11-03 22:28 | PN ---
DATE: 11/03/2018 SUBJECTIVE: The patient is in room 578, bed 2, seen earlier today, in no acute distress, nontoxic. PHYSICAL EXAMINATION: VITAL SIGNS: Temperature is 99, blood pressure is 150/80, respiratory rate of 18, heart rate of 60. HEENT: Unremarkable. NECK: Supple. LUNGS: Have decreased breath sounds. HEART: Normal S1, S2. ABDOMEN: Soft, nontender. No organomegaly. No rebound, no guarding, no masses. LABORATORY DATA: The patient's white count of 7.5. Coagulation is noted. Chemistries are noted. Urinalysis is noted and microbiology reveals the C. diff antigen and toxin are negative. The blood cultures are no growth and stool cultures are pending. ASSESSMENT AND PLAN: A 48-year-old with a right-sided colitis and enteritis, on Zosyn. Awaiting for stool cultures. The blood cultures are negative so far. Dr. Blane Cuevas's input from this morning is reviewed, for possible endoscopy tomorrow pending stool culture results, on Zosyn. Dion Larson MD
[2018-11-03] MEDS ORDERED: Sodium Chloride 0.9% 1,000 ML IV SCH (23:55)
[2018-11-04] MEDS: Piperacillin/Tazobact 3.375 gm 100 ML IVPB SCH ×2 (06:06→14:10)
--- NOTE | 2018-11-04 08:16 | PN ---
DATE: 11/04/2018 SUBJECTIVE: I saw Ms. Dumont this morning. She is a 48-year-old female, admitted with complaints of abdominal pain, nausea, diarrhea prior to admission. At the bedside this morning, the patient gets residual abdominal pain, especially in the epigastric area and periumbilical as well as the right lower quadrant. The patient is scheduled for an endoscopic procedure later on this morning, and she is agreeable. PHYSICAL EXAMINATION: VITAL SIGNS: I reviewed this patient's vital signs. HEENT: Noncontributory, except for dry mouth. LUNGS: Clear. HEART: Regular rhythm. ABDOMEN: ointment mill tender in epigastric as well as the periumbilical in right lower quadrant. OVERALL ASSESSMENT: This is a 48-year-old female, found to have colitis on recent CT scan, still exhibiting abdominal pain in several areas. Endoscopy later on this morning. She will sign a consent in endoscopy later on this morning. She was advised of the risks,benefits, and alternatives of the procedure, and she agreed to have the procedure performed. Blane Cuevas DO, PhD MTDTerrell
[2018-11-04 08:30] LABS: BASO # 0.02 K/mm3 (0.0-2.0); BASO % 0.2 % (0.0-3.0); EOS # 0.1 (0.0-0.7); EOS % 1.5 % (1.5-5.0); HEMOGLOBIN 14.3 g/dL (12.0-16.0); LYMPH # 2.5 (1.2-3.4); LYMPH % 28.8 % (22.0-35.0); MEAN CELL VOLUME 78.8 fl (80.0-105.0); MEAN CORPUSCULAR HEMOGLOBIN 26.5 pg (25.0-35.0); MEAN CORPUSCULAR HGB CONC 33.6 g/dl (31.0-37.0); MEAN PLATELET VOLUME 10.8 fl (7.0-11.0); MONO # 0.4 (0.1-0.6); RBC 5.39 10^6/uL (3.5-6.1); RED CELL DISTRIBUTION WIDTH 14.6 % (11.5-14.5); WHITE BLOOD COUNT 8.7 10^3/uL (4.5-11.0)
[2018-11-04 08:44] LABS: ALBUMIN 4.2 g/dL (3.0-4.8); ALT/SGPT 62 U/L (7-56); AST/SGOT 54 U/L (14-36); BLOOD UREA NITROGEN 5 mg/dL (7-21); CALCIUM 9.3 mg/dL (8.4-10.5); GFR NON-AFRICAN AMERICAN > 60
[2018-11-04] MEDS ORDERED: Propofol 10 mg/ml Inj (20 ML) ONE ×2 (08:55→09:58)
[2018-11-04] MEDS ORDERED: Sodium Chloride 0.9% 1,000 ML IV SCH (09:45)
[2018-11-04] MEDS ORDERED: Etomidate 20 mg/10ml Inj IV ONE (10:26)
[2018-11-04 14:58] VITALS: BP 155/86; PULSE 64; RESP 20; TEMP 98.3; O2SAT 97
[2018-11-04] MEDS ORDERED: Influenza Vaccine 60 mcg/0.5 mL SYR (4YR UP) IM ONE (18:17)
--- NOTE | 2018-11-04 18:45 | CP.PCM.PN ---
Subjective - Date & Time of Evaluation Date of Evaluation: 11/04/18 Time of Evaluation: 13:00 - Subjective Subjective: Patient went for colonoscopy this morning, no fevers, a little less abdominal pain. Objective - Vital Signs/Intake and Output Vital Signs (last 24 hours): Temp Pulse Resp BP Pulse Ox 98.3 F 64 20 155/86 H 97 11/04/18 14:00 11/04/18 14:00 11/04/18 14:00 11/04/18 14:00 11/04/18 14:00 Intake and Output: 11/04/18 11/04/18 06:59 18:59 Intake Total 980 240 Balance 980 240 - Medications Medications: Current Medications Amlodipine Besylate (Norvasc) 5 mg PO DAILY [facility] Last Admin: 11/04/18 06:06 Dose: 5 mg Piperacillin Sod/Tazobactam Sod (Zosyn 3.375 In Ns 100ml) 100 mls @ 25 mls/hr IVPB Q8 [facility]; Protocol Stop: 11/08/18 22:01 Last Admin: 11/04/18 14:10 Dose: 25 mls/hr Ibuprofen (Motrin Tab) 400 mg PO Q6H PRN PRN Reason: Pain, severe (8-10) Ondansetron HCl (Zofran Inj) 4 mg IVP Q6H PRN PRN Reason: Nausea/Vomiting Pantoprazole Sodium (Protonix Inj) 40 mg IVP DAILY [facility] Last Admin: 11/03/18 11:18 Dose: 40 mg - Labs Labs: 11/04/18 08:00 11/04/18 08:00 PT 12.5 SECONDS (9.4-12.5) 11/01/18 07:30 INR 1.11 11/01/18 07:30 APTT 29.6 Seconds (26.9-38.3) 11/01/18 07:30 - Constitutional Appears: Chronically Ill - Respiratory Exam Respiratory Exam: Decreased Breath Sounds - Cardiovascular Exam Cardiovascular Exam: +S1, +S2 - GI/Abdominal Exam GI & Abdominal Exam: Soft. absent: Tenderness Assessment and Plan - Assessment and Plan (Free Text) Plan: Assessment right sided colitis with enteritis S/P colonoscopy asthma GERD HTN hemorroids Plan reviewed CT A/P continue Zosyn stool for C. diff is negative - follow up blood and stool cx follow up results of colonocopy will continue to monitor clinically
--- NOTE | 2018-11-04 18:56 | CP.PCM.DIS ---
<FedeRamostasneem Escaleraron - Last Filed: 11/04/18 19:02> Provider - Provider Date of Admission: 11/01/18 15:13 Attending physician: Vanessa Mancia MD Primary care physician: Jesica Cox MD Consults: 10/31/18 21:31 Infectious Disease Consult Routine Comment: Consulting Provider: Adal Nicole Consulting Physician: Adal Nicole Reason for Consult: colitis, failed outpatient PO abx 11/01/18 00:08 Gastroenterology Consult Routine Comment: Consulting Provider: Blane Cuevas Consulting Physician: Blane Cuevas Reason for Consult: Colitis Time Spent in preparation of Discharge (in minutes): 40 Diagnosis - Discharge Diagnosis (1) Colitis Status: Acute Priority: High (2) HTN (hypertension) Status: Chronic Priority: High Hospital Course - Lab Results Lab Results: Micro Results 11/02/18 09:00 Stool Stool Culture - Final NO SALMONELLA, SHIGELLA OR CAMPYLOBACTER ISOLATED. 11/02/18 06:00 Stool Ova and Parasite Concentrate Exam - Final 10/31/18 19:30 Blood Blood Culture - Preliminary NO GROWTH AFTER 3 DAYS 10/31/18 19:00 Blood Blood Culture - Preliminary NO GROWTH AFTER 3 DAYS 11/02/18 06:00 Stool C. difficile Antigen & Toxins A,B - Final Most Recent Lab Values WBC 8.7 10^3/uL (4.5-11.0) 11/04/18 08:00 RBC 5.39 10^6/uL (3.5-6.1) 11/04/18 08:00 Hgb 14.3 g/dL (12.0-16.0) 11/04/18 08:00 Hct 42.5 % (36.0-48.0) 11/04/18 08:00 MCV 78.8 fl (80.0-105.0) L 11/04/18 08:00 MCH 26.5 pg (25.0-35.0) 11/04/18 08:00 MCHC 33.6 g/dl (31.0-37.0) 11/04/18 08:00 RDW 14.6 % (11.5-14.5) H 11/04/18 08:00 Plt Count 227 10^3/uL (120.0-450.0) 11/04/18 08:00 MPV 10.8 fl (7.0-11.0) 11/04/18 08:00 Neut % (Auto) 65.5 % (50.0-68.0) 11/04/18 08:00 Lymph % (Auto) 28.8 % (22.0-35.0) 11/04/18 08:00 [place] % (Auto) 4.0 % (1.0-6.0) 11/04/18 08:00 Eos % (Auto) 1.5 % (1.5-5.0) 11/04/18 08:00 Baso % (Auto) 0.2 % (0.0-3.0) 11/04/18 08:00 Lymph # (Auto) 2.5 (1.2-3.4) 11/04/18 08:00 [place] # (Auto) 0.4 (0.1-0.6) 11/04/18 08:00 Eos # (Auto) 0.1 (0.0-0.7) 11/04/18 08:00 Baso # (Auto) 0.02 K/mm3 (0.0-2.0) 11/04/18 08:00 Absolute Neuts (auto) 5.72 (1.4-6.5) 11/04/18 08:00 PT 12.5 SECONDS (9.4-12.5) 11/01/18 07:30 INR 1.11 11/01/18 07:30 APTT 29.6 Seconds (26.9-38.3) 11/01/18 07:30 Sodium 141 mmol/L (132-148) 11/04/18 08:00 Potassium 3.6 mmol/L (3.6-5.0) 11/04/18 08:00 Chloride 105 mmol/L (98-107) 11/04/18 08:00 Carbon Dioxide 29 mmol/L (21-33) 11/04/18 08:00 Anion Gap 10 (10-20) 11/04/18 08:00 BUN 5 mg/dL (7-21) L 11/04/18 08:00 Creatinine 0.7 mg/dl (0.7-1.2) 11/04/18 08:00 Est GFR ( Amer) > 60 11/04/18 08:00 Est GFR (Non-Af Amer) > 60 11/04/18 08:00 Random Glucose 91 mg/dL (70-110) 11/04/18 08:00 Calcium 9.3 mg/dL (8.4-10.5) 11/04/18 08:00 Phosphorus 4.2 mg/dL (2.5-4.5) 11/04/18 08:00 Magnesium 2.1 mg/dL (1.7-2.2) 11/04/18 08:00 Total Bilirubin 1.2 mg/dL (0.2-1.3) 11/04/18 08:00 AST 54 U/L (14-36) H D 11/04/18 08:00 ALT 62 U/L (7-56) H 11/04/18 08:00 Alkaline Phosphatase 82 U/L (38-126) 11/04/18 08:00 Lactate Dehydrogenase 559 U/L (333-699) 10/31/18 17:20 Total Creatine Kinase 80 U/L (35-230) 10/31/18 17:20 Troponin I < 0.01 ng/mL 10/31/18 17:20 Total Protein 8.2 g/dL (5.8-8.3) 11/04/18 08:00 Albumin 4.2 g/dL (3.0-4.8) 11/04/18 08:00 Globulin 4.0 gm/dL 11/04/18 08:00 Albumin/Globulin Ratio 1.0 (1.1-1.8) L 11/04/18 08:00 Lipase 164 U/L (23-300) 10/31/18 17:38 Procalcitonin < 0.05 NG/ML (0.19-0.49) L 11/01/18 07:30 Urine Color Straw (YELLOW) 10/31/18 18:45 Urine Appearance Clear (CLEAR) 10/31/18 18:45 Urine pH 6.5 (4.7-8.0) 10/31/18 18:45 Ur Specific [place] 1.010 (1.005-1.035) 10/31/18 18:45 Urine Protein Negative mg/dL (<30 mg/dL) 10/31/18 18:45 Urine Glucose (UA) Negative mg/dL (NEGATIVE) 10/31/18 18:45 Urine Ketones Negative mg/dL (NEGATIVE) 10/31/18 18:45 Urine Blood Negative (NEGATIVE) 10/31/18 18:45 Urine Nitrate Negative (NEGATIVE) 10/31/18 18:45 Urine Bilirubin Negative (NEGATIVE) 10/31/18 18:45 Urine Urobilinogen 0.2 E.U./dL (<1 E.U./dL) 10/31/18 18:45 Ur Leukocyte Esterase Negative Renzo/uL (NEGATIVE) 10/31/18 18:45 Stool Leukocytes, Qual Negative (NEGATIVE) 11/02/18 06:00 - Hospital Course Hospital Course: Hospitalization Pt is a 48 yo female with PMH HTN, hemorrhoids, GERD who presents to the ED complaining of abdominal pain that has been present for the past month. Admitted to multiple episodes of watery diarrhea today and pt states she wiped her bottom and noted small streak of blood on toilet paper. States that she had had hx of chronic constipation and sometimes goes several days without having bowel movement. States abd pain is improved since being given pain meds in the ED, but states that she feels bloated and has "gas pain". Denies subjective fevers or chills currently but states that last week, she took her temperature at homeWas unable to tolerate PO diet today and admitted to multiple episodes of nausea and non-bloody, non-bilious vomiting. Pt states that she went to [facility] 2 weeks ago and was prescribed Levaquin and Flagyl as antibiotics for treatment of colitis. Discharge Please follow up with your primary medical physician. Please continue to take home meds as directed. Please follow up with your [employer] (stomach doctor). If your symptoms return or worsen, go to the nearest emergency department. - Date & Time of H&P Date of H&P: 11/04/18 Time of H&P: 07:00 Discharge Exam - Head Exam Head Exam: ATRAUMATIC, NORMOCEPHALIC - Eye Exam Eye Exam: EOMI - ENT Exam ENT Exam: Mucous Membranes Moist - Respiratory Exam Respiratory Exam: NORMAL BREATHING PATTERN, UNREMARKABLE. absent: Wheezes, Respiratory Distress - Cardiovascular Exam Cardiovascular Exam: REGULAR RHYTHM, RRR, +S1, +S2. absent: Diastolic murmur, Systolic Murmur - GI/Abdominal Exam GI & Abdominal Exam: Normal Bowel Sounds, Unremarkable - Extremities Exam Extremities exam: full ROM, pedal pulses present - Neurological Exam Neurological exam: Alert, Oriented x3, Reflexes Normal - Psychiatric Exam Psychiatric exam: Normal Affect, Normal Mood - Skin Skin Exam: Intact, Normal Color, Warm Discharge Plan - Discharge Medications Prescriptions: Pantoprazole Sodium [Protonix] 40 mg PO DAILY #30 ect - Follow Up Plan Condition: FAIR Disposition: HOME/ ROUTINE Instructions: Hemorrhoids, Heart Healthy Diet, Colitis, Pneumococcal Conjugate Vaccine (13-Valent), Influenza Virus Vaccine (Inactivated) Additional Instructions: 1. Please follow up with your primary medical physician 2. Please continue to take your home meds as directed 3. Please follow up with your [employer] (stomach doctor) 4. If your symptoms return or worsen, go to the nearest emergency department Referrals: Jesica Cox MD [Primary Care Provider] - <Vanessa Mancia - Last Filed: 11/05/18 13:53> Provider - Provider Date of Admission: 11/01/18 15:13 Attending physician: Vanessa Mancia MD Primary care physician: Jesica Cox MD Consults: 10/31/18 21:31 Infectious Disease Consult Routine Comment: Consulting Provider: Adal Nicole Consulting Physician: Adal Nicole Reason for Consult: colitis, failed outpatient PO abx 11/01/18 00:08 Gastroenterology Consult Routine Comment: Consulting Provider: Blane Cuevas Consulting Physician: Blane Cuevas Reason for Consult: Colitis Hospital Course - Lab Results Lab Results: Micro Results 10/31/18 19:30 Blood Blood Culture - Preliminary NO GROWTH AFTER 4 DAYS 10/31/18 19:00 Blood Blood Culture - Preliminary NO GROWTH AFTER 4 DAYS 11/02/18 09:00 Stool Stool Culture - Final NO SALMONELLA, SHIGELLA OR CAMPYLOBACTER ISOLATED. 11/02/18 06:00 Stool Ova and Parasite Concentrate Exam - Final 11/02/18 06:00 Stool C. difficile Antigen & Toxins A,B - Final Most Recent Lab Values WBC 8.7 10^3/uL (4.5-11.0) 11/04/18 08:00 RBC 5.39 10^6/uL (3.5-6.1) 11/04/18 08:00 Hgb 14.3 g/dL (12.0-16.0) 11/04/18 08:00 Hct 42.5 % (36.0-48.0) 11/04/18 08:00 MCV 78.8 fl (80.0-105.0) L 11/04/18 08:00 MCH 26.5 pg (25.0-35.0) 11/04/18 08:00 MCHC 33.6 g/dl (31.0-37.0) 11/04/18 08:00 RDW 14.6 % (11.5-14.5) H 11/04/18 08:00 Plt Count 227 10^3/uL (120.0-450.0) 11/04/18 08:00 MPV 10.8 fl (7.0-11.0) 11/04/18 08:00 Neut % (Auto) 65.5 % (50.0-68.0) 11/04/18 08:00 Lymph % (Auto) 28.8 % (22.0-35.0) 11/04/18 08:00 [place] % (Auto) 4.0 % (1.0-6.0) 11/04/18 08:00 Eos % (Auto) 1.5 % (1.5-5.0) 11/04/18 08:00 Baso % (Auto) 0.2 % (0.0-3.0) 11/04/18 08:00 Lymph # (Auto) 2.5 (1.2-3.4) 11/04/18 08:00 [place] # (Auto) 0.4 (0.1-0.6) 11/04/18 08:00 Eos # (Auto) 0.1 (0.0-0.7) 11/04/18 08:00 Baso # (Auto) 0.02 K/mm3 (0.0-2.0) 11/04/18 08:00 Absolute Neuts (auto) 5.72 (1.4-6.5) 11/04/18 08:00 PT 12.5 SECONDS (9.4-12.5) 11/01/18 07:30 INR 1.11 11/01/18 07:30 APTT 29.6 Seconds (26.9-38.3) 11/01/18 07:30 Sodium 141 mmol/L (132-148) 11/04/18 08:00 Potassium 3.6 mmol/L (3.6-5.0) 11/04/18 08:00 Chloride 105 mmol/L (98-107) 11/04/18 08:00 Carbon Dioxide 29 mmol/L (21-33) 11/04/18 08:00 Anion Gap 10 (10-20) 11/04/18 08:00 BUN 5 mg/dL (7-21) L 11/04/18 08:00 Creatinine 0.7 mg/dl (0.7-1.2) 11/04/18 08:00 Est GFR ( Amer) > 60 11/04/18 08:00 Est GFR (Non-Af Amer) > 60 11/04/18 08:00 Random Glucose 91 mg/dL (70-110) 11/04/18 08:00 Calcium 9.3 mg/dL (8.4-10.5) 11/04/18 08:00 Phosphorus 4.2 mg/dL (2.5-4.5) 11/04/18 08:00 Magnesium 2.1 mg/dL (1.7-2.2) 11/04/18 08:00 Total Bilirubin 1.2 mg/dL (0.2-1.3) 11/04/18 08:00 AST 54 U/L (14-36) H D 11/04/18 08:00 ALT 62 U/L (7-56) H 11/04/18 08:00 Alkaline Phosphatase 82 U/L (38-126) 11/04/18 08:00 Lactate Dehydrogenase 559 U/L (333-699) 10/31/18 17:20 Total Creatine Kinase 80 U/L (35-230) 10/31/18 17:20 Troponin I < 0.01 ng/mL 10/31/18 17:20 Total Protein 8.2 g/dL (5.8-8.3) 11/04/18 08:00 Albumin 4.2 g/dL (3.0-4.8) 11/04/18 08:00 Globulin 4.0 gm/dL 11/04/18 08:00 Albumin/Globulin Ratio 1.0 (1.1-1.8) L 11/04/18 08:00 Lipase 164 U/L (23-300) 10/31/18 17:38 Procalcitonin < 0.05 NG/ML (0.19-0.49) L 11/01/18 07:30 Urine Color Straw (YELLOW) 10/31/18 18:45 Urine Appearance Clear (CLEAR) 10/31/18 18:45 Urine pH 6.5 (4.7-8.0) 10/31/18 18:45 Ur Specific [place] 1.010 (1.005-1.035) 10/31/18 18:45 Urine Protein Negative mg/dL (<30 mg/dL) 10/31/18 18:45 Urine Glucose (UA) Negative mg/dL (NEGATIVE) 10/31/18 18:45 Urine Ketones Negative mg/dL (NEGATIVE) 10/31/18 18:45 Urine Blood Negative (NEGATIVE) 10/31/18 18:45 Urine Nitrate Negative (NEGATIVE) 10/31/18 18:45 Urine Bilirubin Negative (NEGATIVE) 10/31/18 18:45 Urine Urobilinogen 0.2 E.U./dL (<1 E.U./dL) 10/31/18 18:45 Ur Leukocyte Esterase Negative Renzo/uL (NEGATIVE) 10/31/18 18:45 Stool Leukocytes, Qual Negative (NEGATIVE) 11/02/18 06:00 Attending/Attestation - Attestation I have personally seen and examined this patient.: Yes I have fully participated in the care of the patient.: Yes I have reviewed all pertinent clinical information, including history, physical exam and plan: Yes Notes (Text): 11/05/18 07:50 Attending note; Patient seen and examined with resident. Patient is alert and awake. Status post EGD. Tolerating diet. Denies any nausea, vomiting. Patient is a 48-year-old female past medical history significant for hypertension, hemorrhoids, and GERD presents to the emergency room with abd ominal pain for the past month. 1. Abdominal pain. Colitis. Enteritis. Failed outpatient therapy. Treated with IV Zosyn. Status post EGD and colonoscopy. EGD showed gastritis and erosions in the antrum and duodenal area. Colonoscopy showed nonspecific colitis. biopsy pending. Abdominal ultrasound showed echogenic liver may be seen in setting of hepatic parenchymal disease or fatty infiltration, nodular hepatic contour may be seen in the setting of cirrhosis, cholecystectomy. CT abdomen and pelvis showed moderate wall thickening of the right colon consistent with colitis, mildly dilated common bile duct in the setting of cholecystectomy, small bowel wall thickening may be related to enteritis, mildly thick-walled urinary bladder. Blood cultures negative so far. Patient afebrile. Leukocytosis resolved. 2. hypertension. Continue Norvasc. 3. colitis: C diff is negative. salmonella and shigella is negative. patient is currently tolerating diet. Discharge home today. Follow-up with PMD Dr. Kandy Alanis. Follow up with GI per PMD. 11/05/18 13:53
== END 2018-11-04 21:16 | disposition home or self-care (01) | DRG 814 ==
LOC: ED 16:28 → ERH 19:57 → 5RSO 11-01 00:22 → OBSVTOIN 11-01 15:13 → 5RSO 11-02 22:29
PROVIDERS: ADMIT Hospitalist; ATTEND Internal Medicine
PROC: 0DBN8ZX Excision of Sigmoid Colon, Via Natural or Artificial Opening Endoscopic, Diagnostic (ICD-10-PCS; 2018-11-04)
PROC: 3E02340 Introduction of Influenza Vaccine into Muscle, Percutaneous Approach (ICD-10-PCS; 2018-11-04)
PROC: 0DB68ZX Excision of Stomach, Via Natural or Artificial Opening Endoscopic, Diagnostic (ICD-10-PCS; principal; 2018-11-04 09:00)
PROC: 0DBM8ZX Excision of Descending Colon, Via Natural or Artificial Opening Endoscopic, Diagnostic (ICD-10-PCS; 2018-11-04 09:00)
DX: K52.9 Noninfective gastroenteritis and colitis, unspecified (principal); K29.70 Gastritis, unspecified, without bleeding; K26.9 Duodenal ulcer, unspecified as acute or chronic, without hemorrhage or perforation; K25.9 Gastric ulcer, unspecified as acute or chronic, without hemorrhage or perforation; K64.8 Other hemorrhoids; E11.9 Type 2 diabetes mellitus without complications; I10 Essential (primary) hypertension; K21.9 Gastro-esophageal reflux disease without esophagitis; K59.00 Constipation, unspecified; J45.909 Unspecified asthma, uncomplicated; K76.0 Fatty (change of) liver, not elsewhere classified; Z23 Encounter for immunization